=== PATIENT | female | born 1955 | race Caucasian/White ===

== ENCOUNTER 2021-01-16 01:17 | Inpatient (IN) ==
[2021-01-16] MEDS ORDERED: IOPAMIDOL 100 ML BOTTLE IV ONE ×2 (01:18→09:14)
[2021-01-16] MEDS ORDERED: 0.9 % SODIUM CHLORIDE 1,000 ML IV ONE (02:00)
[2021-01-16] MEDS ORDERED: ONDANSETRON 4 MG/2 ML VIAL IV ONE (02:24)
[2021-01-16] MEDS ORDERED: LACTATED RINGERS 1,000 ML IV ONE ×2 (02:24→05:18)
[2021-01-16] MEDS ORDERED: morphine 4 MG/ML VIAL IV ONE ×3 (02:25→08:28)
[2021-01-16 02:54] LABS: POC Creatinine 0.9 mg/dL (0.6-1.2)
[2021-01-16 03:37] LABS: Basophils # (Auto) 0.02 K/mcL (0.00-0.20); Basophils % (Auto) 0.1 % (0.0-2.0); Eosinophils # (Auto) 0.01 K/mcL (0.00-0.70); Eosinophils % (Auto) 0.1 % (0.0-7.0); Hematocrit 38.9 % (36.0-48.0); Hemoglobin 12.2 g/dL (12.0-15.0); Lymphocytes % (Auto) 8.1 % (15.0-49.0); Mean Cell Volume 98.2 fL (80.0-100.0); Mean Corpuscular HGB Conc 31.4 g/dL (31.0-36.0); Mean Platelet Volume 9.2 fL (7.4-10.4); Monocytes # (Auto) 0.65 K/mcL (0.10-0.90); Monocytes % (Auto) 4.4 % (1.0-12.0); Neutrophils % (Auto) 87.3 % (38.0-78.0); Platelet Count 286 K/mcL (140-440); RBC 3.96 M/mcL (4.00-5.20); Red Cell Distribution Width 13.9 % (11.5-14.5); WBC 14.8 K/mcL (4.5-11.0)
[2021-01-16 03:59] LABS: ALT/SGPT 11 U/L (<40); AST/SGOT 20 U/L (<32); Albumin 3.8 gm/dL (3.2-5.2); Albumin/Globulin Ratio 1.4 (1.0-2.3); Alkaline Phosphatase 303 U/L (39-117); Bilirubin,Total 0.7 mg/dL (0.1-1.0); Blood Urea Nitrogen 11 mg/dL (8-23); Calcium 8.4 mg/dL (8.6-10.4); Carbon Dioxide 19 mmol/L (22-30); Chloride 101 mmol/L (96-108); Globulin 2.7 gm/dL (2.2-3.7); Glomerular Filtration Rate 53; Glucose 114 mg/dL (70-105)
[2021-01-16 04:03] LABS: Appearance,Urine HAZY (Clear); Bacteria,Urine FEW /hpf (0); Bilirubin,Urine Negative (Negative); Color,Urine AMBER; Culture Indicated,Urine yes; Glucose,Urine (UA) Negative (Negative); Ketones,Urine Negative (Negative); Leukocyte Esterase,Urine Negative /ug (Negative); Mucus,Urine FEW /hpf; Nitrate,Urine Negative (Negative); Protein,Urine 30 mg/dL (Negative); Specific Gravity,Urine 1.038 (1.000-1.035); Urine Hyaline Cast 24 /lph (0-2); Urine RBC 16 /hpf (0-3); Urine Squamous Epithelial Cell 2 /hpf (0-4); Urine Transitional Epi Cells < 1 /hpf (0-2); Urine WBC 21 /hpf (0-4)
[2021-01-16] MEDS ORDERED: cefTRIAXone 1 GM VIAL IV ONE (04:03)
--- NOTE | 2021-01-16 05:44 | Cat Scan Report ---
INDICATION: low abdominal pain COMPARISON: Previous noncontrast enhanced CT scan dated 06/18/2013 TECHNIQUE: Axial images were obtained through the abdomen and pelvis. Sagittally and coronally reformatted images. 80 mL Isovue 370 injected intravenously. Oral contrast material was not administered FINDINGS: Lung bases:7 mm subpleural nodule in the right middle lobe, image #9. 6-[address] follow-up recommended. Parenchymal infiltrates in the right lower lobe. This may be benign volume loss. Pneumonia is possible. Left base is negative. There is a small hiatal hernia. Liver:Negative. No focal intrahepatic mass. No focal abnormality. Liver contour is smooth. No evidence for cirrhosis Gallbladder, bilary:No calcified gallstones. No gallbladder wall thickening. No dilated intra or extrahepatic bile ducts. Spleen:No splenomegaly. Normal enhancement of splenic and portal veins. Pancreas:No pancreatic mass. No peripancreatic abnormality Adrenal glands:Negative Kidneys, ureters, bladder:No solid renal mass. No hydronephrosis. No obstructing calculi. There is no hydroureter. No ureteral stone No bladder calculi or detectable mass Gastrointestinal:Colon is abnormal. There is prominent fecal material throughout the length of the colon which may indicate constipation. There is transmural wall thickening in the descending colon and sigmoid colon with mild pericolonic inflammatory change. There is prominent vasa recta. There is mild wall thickening in the transverse colon as well. Appearance is consistent with colitis. No detectable focal mass. There is no pneumatosis. No evidence for ischemia. Small bowel is negative. Stomach and duodenum are negative Appendix: The appendix is not visualized. The lesion has a history of previous appendectomy. Vascular:Mild calcification of the abdominal aorta. No abdominal aortic aneurysm. Celiac trunk and superior mesenteric artery are negative. There is a slightly abnormal course of the celiac trunk which may indicate median arcuate ligament syndrome. Lymphatic:No retroperitoneal or mesenteric adenopathy Mesentery, peritoneum: Mild free fluid within the pelvis. There is pericolonic inflammatory change consistent with colitis Reproductive:Previous hysterectomy. No adnexal mass Musculoskeletal:No lumbar compression fractures. Sacrum and pelvis are negative. No hip fracture. No abdominal wall or inguinal hernia IMPRESSION: 1. Findings consistent with constipation and colitis involving the transverse, descending, sigmoid colon 2. 7 mm subpleural nodule in the right lower lobe. Mild right lower lobe infiltrate may be atelectasis or pneumonia The exam was performed using radiation dose optimization techniques including, but not limited to, automated exposure control, adjustment of the mA and/or kV according to patient size and use of iterative reconstruction technique. Interpreted and Authenticated by: David Valeds 01/16/21
--- NOTE | 2021-01-16 06:33 | Emergency Department Note ---
HPI General Chief complaint: Abdominal Pain Stated complaint: abd pain Time Seen by Provider: 01/16/21 02:05 Source: patient Mode of arrival: EMS Limitations: no limitations History of Present Illness HPI Narrative: Narrative: Patient with a history of recurrent UTI, fibromyalgia, endometriosis, Sjogren's disease, presenting to the ED with low abdominal worsening cramping pain. Associated with nausea vomiting. As well as some intermittent diarrhea. No fever no chills no cardiorespiratory complaints. No urinary symptoms. No other complaints. Unsure if this is related to her history of endometriosis. Has had a history of a hysterectomy in the distant past. Denies rectal bleeding. No vaginal symptoms. Related Data Home Medications Medication Instructions Recorded Confirmed Rubber Cane Stopper MISCELLANE 05/17/16 02/01/20 Thigh High Compression Stockings MISCELLANE 05/17/16 02/01/20 albuterol sulfate 90 mcg/actuation See Rx Instructions INHALATION Q4H 05/17/16 02/01/20 aerosol inhaler PRN g cane 05/17/16 02/01/20 carisoprodol 350 mg tablet 350 mg PO Q6H PRN tab 05/17/16 02/01/20 cushion 05/17/16 02/01/20 geovany root powder MISCELLANE QWEEK 05/17/16 07/13/19 leucovorin calcium 5 mg tablet 5 mg PO .COMPLEX tab 05/17/16 02/01/20 omeprazole 20 mg capsule,delayed 20 mg PO QDAY cap 05/17/16 02/01/20 release pilocarpine HCl 5 mg tablet 5 mg PO TID 05/17/16 02/01/20 temazepam 15 mg capsule 30 mg PO QDAY cap 05/17/16 02/01/20 vitamin B complex 1 tab-cap PO QDAY 05/17/16 02/01/20 duloxetine 120 mg PO QDAY cap 05/29/16 02/01/20 tofacitinib 11 mg tablet,extended 11 mg PO QAM tab 06/19/19 02/01/20 release 24 hr folic acid 1 mg tablet 5 mg PO QDAY tab 07/02/19 02/01/20 methotrexate sodium (PF) 25 mg/mL 0.8 mg IM QWEEK ml 07/02/19 02/01/20 injection solution polyethylene glycol 3350 17 17 g PO ONCE PRN 07/02/19 02/01/20 gram/dose oral powder amitriptyline 50 mg tablet 50 mg PO QHS 07/13/19 02/01/20 spironolactone 50 mg tablet 25 mg PO QAM tab 07/13/19 02/01/20 cholecalciferol (vitamin D3) 50 100 mcg PO QDAY tab 02/01/20 02/01/20 mcg (2,000 unit) tablet Previous Rx's Medication Instructions Recorded E2-E3 20/80 1mg per gram See Rx Instructions .ROUTE 02/25/20 .COMPLEX #60 g alfuzosin 10 mg tablet,extended 10 mg PO QDAY #30 tab 05/25/20 release 24 hr mirabegron 50 mg tablet,extended 50 mg PO Q24H #30 tab 08/01/20 release 24 hr Allergies Allergy/AdvReac Type Severity Reaction Status Date / Time sulfamethoxazole Allergy Severe Unknown Verified 01/16/21 01:27 [From Septra] trimethoprim [From Septra] Allergy Severe Unknown Verified 01/16/21 01:27 ciprofloxacin [From Cipro] Allergy Unknown Unknown Verified 01/16/21 01:27 etanercept [From ENBREL] Allergy Unknown SWELLING Verified 01/16/21 01:27 gabapentin [GABAPENTIN] Allergy Unknown UNKNOWN Verified 01/16/21 01:27 infliximab [From Remicade] Allergy Unknown Unknown Verified 01/16/21 01:27 ketorolac [From Toradol] Allergy Unknown Unknown Verified 01/16/21 01:27 pregabalin [From LYRICA] Allergy Unknown SWELLING Verified 01/16/21 01:27 Sulfa (Sulfonamide Allergy Unknown Unknown Verified 01/16/21 01:27 Antibiotics) tramadol Allergy Unknown Unknown Verified 01/16/21 01:27 codeine AdvReac Unknown NAUSEA Verified 01/16/21 01:27 From TORADOL AdvReac Unknown NAUSEA Uncoded 08/01/20 15:46 Review of Systems ROS ROS Narrative: Narrative: At least 10 systems reviewed and otherwise acutely negative except as in the HPI PFSH Narrative Patient History Narrative: Narrative: Medical/Surgical/Family History All Active Problems (Updated 01/16/21 @ 07:16 by Berry Kauffman DO) Colitis (Acute) Abdominal pain (Acute) OAB (overactive bladder) (Acute) Bladder pain (Chronic) Hypertension (Chronic) Closed left ankle fracture (Acute) Ankle dislocation (Acute) Menopausal state (Chronic) Steroid long-term use (Chronic) Recurrent UTI (Chronic) Lower urinary tract symptoms (Chronic) Incomplete bladder emptying (Chronic) Albuminuria (Chronic) Strain of lumbar region (Acute) Osteoarthritis (Chronic) Sicca syndrome (Chronic) Polyarthralgia (Chronic) Rheumatoid arthritis (Chronic) Arthritis (Chronic) Stiffness in joint (Chronic) Muscle weakness (Chronic) Muscle cramps (Chronic) History of bone scan (Chronic 08/15/10) History of mammogram (Chronic 09/24/10) Anxiety (Chronic) Joint swelling (Chronic) Back pain (Chronic) Fracture of left distal radius (Chronic) Urinary tract infection (Chronic) Sicca syndrome, Sjogren's (Chronic) Rheumatoid arthritis, erosive, seronegative (Chronic) Aftercare (Chronic) Peripheral neuropathy (Chronic) Fibromyalgia (Chronic) Fatigue (Chronic) Dysuria (Chronic) Calcium metabolism disorder (Chronic) Preventative health care (Chronic) Acute lumbar back pain (Chronic) Sciatica (Chronic) Hyperlipidemia (Chronic) Depression (Chronic) Chronic abdominal pain (Chronic) Urinary incontinence (Chronic) Urinary frequency (Chronic) Osteoporosis (Chronic) Edema (Chronic) Schatzki's ring (Chronic) Vitamin D deficiency (Chronic) Tubulovillous adenoma of colon (Chronic) Vaginal discharge (Chronic) Incontinence (Chronic) Hematuria (Chronic) Urinary urgency (Chronic) 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) Drug therapy (Chronic) Pain (Chronic) Fracture of wrist (Chronic) Medical History (Updated 01/16/21 @ 07:16 by Berry Kauffman DO) Absence of cervix Surgical Absence of uterus Surgical Acute lumbar back pain Aftercare Long-term use, medications, NEC Albuminuria Anxiety Arthritis Back pain Calcium metabolism disorder Chronic abdominal pain Depression Drug therapy Dysuria Edema Fatigue Fibromyalgia Fracture of left distal radius Fracture of wrist Left-Colles fracture Hematuria History of bone scan (08/15/10) History of mammogram (09/24/10) Hyperlipidemia Incomplete bladder emptying Incontinence Joint swelling Lower urinary tract symptoms Menopausal state Muscle cramps Muscle weakness Osteoarthritis Osteoporosis Pain Peripheral neuropathy Polyarthralgia Preventative health care Recurrent UTI Rheumatoid arthritis Rheumatoid arthritis, erosive, seronegative Schatzki's ring Sciatica Sicca syndrome Sicca syndrome, Sjogren's Steroid long-term use Stiffness in joint Tubulovillous adenoma of colon Urinary frequency Urinary incontinence Urinary tract infection Urinary urgency Vaginal discharge Vitamin D deficiency Surgical History History of bunionectomy of left great toe 1994 History of colonoscopy 10/17 History of esophagogastroduodenoscopy (EGD) 10/2010 History of laparoscopy Due to endometriosis - 1991 History of open reduction and internal fixation (ORIF) procedure Left wrist 2014 History of tonsillectomy and adenoidectomy 1965 Status post JUN-BSO Due to endometriosis-1991 Family History Mother FHx: allergies Skin cancer Osteoporosis Hip fracture Father , 84 Parkinson's disease Brother Skin cancer Son Migraines Marijuana use Grandfather Leukemia Colon cancer Heart disease High cholesterol Osteoporosis Grandmother Arthritis Family/Other Rheumatoid arthritis Social History Smoking Status: Current every day smoker Alcohol Intake Frequency: does not drink Substance Use: does not use Exam Narrative Narrative: Narrative: Constitutional: normally developed, appears uncomfortable in some pain Head: Normocephalic, atraumatic, Eyes: No Icterus, ENT: Dry mucus membranes, Neck: Supple, Cardiac: Normal heart sounds, palpable radial pulses, no peripheral edema Pulmonary: Normal respiratory effort. Breath sounds clear, no wheeze, rhonchi, rales, Gastrointestinal: Abdomen soft, non-distended, tender across her lower abdomen left side greater than right no rebound or guarding. No CVA tenderness, Musculoskeletal: No gross deformities, well perfused Skin: warm, dry Neuro: Alert and oriented. General Limitations: no limitations Course Vital Signs Vital signs: Vital Signs Temperature 36.6 C 01/16/21 01:18 Pulse Rate 100 H 01/16/21 01:18 Respiratory Rate 18 01/16/21 01:18 Blood Pressure 92/61 01/16/21 01:18 Pulse Oximetry (%) 95 01/16/21 01:18 Temperature 36.6 C 01/16/21 01:18 Pulse Rate 98 H 01/16/21 05:57 Respiratory Rate 18 01/16/21 01:18 Blood Pressure 106/59 01/16/21 05:36 Pulse Oximetry (%) 88 L 01/16/21 05:36 [facility] MDM Narrative Medical decision making narrative: Narrative: Patient with low abdominal pain work-up is initiated. Is given some IV fluids appears dry, is given antiemetic and analgesia CBC shows leukocytosis of 14.8, electrolytes show normal renal function low normal bicarb 19 LFTs within normal alk phos 303 Urinalysis negative for nitrates, negative for leukocyte esterase, has some RBCs, WBCs few bacteria some squamous cells. Urine culture pending given the fact she does not have any urinary and negative nitrites negative leukocyte esterase, unlikely UTI however is being covered with antibiotics anyways for colitis which would also cover possible UTI pending culture result CT abdomen does show constipation with segmental colitis primarily the descending colon and sigmoid. Reevaluation no new complaints vitals remained stable however she is still quite symptomatic having to very frequently use the bedside commode still reporting some recurrence of pain despite several rounds analgesia and antiemetics. Did speak with hospitalist who accepts admission for further management and symptomatic control, hydration. Did request we start some antibiotics was given initial dose of Zosyn here in the ED. Lab Data Result diagrams: 01/16/21 02:44 01/16/21 02:44 Labs: Lab Results 01/16/21 01/16/21 01/16/21 Range/Units 02:44 02:44 02:59 WBC 14.8 H (4.5-11.0) K/mcL RBC 3.96 L (4.00-5.20) M/mcL Hgb 12.2 (12.0-15.0) g/dL Hct 38.9 (36.0-48.0) % MCV 98.2 (80.0-100.0) fL MCH 30.8 (26.0-34.0) pg MCHC 31.4 (31.0-36.0) g/dL RDW 13.9 (11.5-14.5) % Plt Count 286 (140-440) K/mcL MPV 9.2 (7.4-10.4) fL Neut % (Auto) 87.3 H (38.0-78.0) % Lymph % (Auto) 8.1 L (15.0-49.0) % [place] % (Auto) 4.4 (1.0-12.0) % Eos % (Auto) 0.1 (0.0-7.0) % Baso % (Auto) 0.1 (0.0-2.0) % Lymph # (Auto) 1.20 L (1.50-4.80) K/mcL [place] # (Auto) 0.65 (0.10-0.90) K/mcL Eos # (Auto) 0.01 (0.00-0.70) K/mcL Baso # (Auto) 0.02 (0.00-0.20) K/mcL Absolute Neutrophils 12.96 H (1.80-8.00) K/mcL Sodium 134 (133-145) mmol/L Potassium 3.6 (3.3-5.1) mmol/L Chloride 101 (96-108) mmol/L Carbon Dioxide 19 L (22-30) mmol/L Anion Gap 14.0 (8.0-16.0) BUN 11 (8-23) mg/dL Creatinine 1.1 (0.6-1.1) mg/dL POC Creatinine 0.9 (0.6-1.2) mg/dL GFR Calculation 53 Glucose 114 H (70-105) mg/dL Calcium 8.4 L (8.6-10.4) mg/dL Total Bilirubin 0.7 (0.1-1.0) mg/dL AST 20 (<32) U/L ALT 11 (<40) U/L Alkaline Phosphatase 303 H (39-117) U/L Total Protein 6.5 (5.9-8.4) gm/dL Albumin 3.8 (3.2-5.2) gm/dL Globulin 2.7 (2.2-3.7) gm/dL Albumin/Globulin Ratio 1.4 (1.0-2.3) Lipase 12 (7-60) U/L Urine Color Yolanda Urine Appearance Hazy A (Clear) Urine pH 5.0 (5.0-9.0) Ur Specific [place] 1.038 (1.000-1.035) Urine Protein 30 A (Negative) mg/dL Urine Glucose (UA) Negative (Negative) mg/dL Urine Ketones Negative (Negative) mg/dL Urine Occult Blood 0.20 (Negative) mg/dL Urine Nitrate Negative (Negative) Urine Bilirubin Negative (Negative) mg/dL Urine Urobilinogen 4.0 A mg/dL Ur Leukocyte Esterase Negative (Negative) /ug Urine RBC 16 H (0-3) /hpf Urine WBC 21 H (0-4) /hpf Ur Squamous Epith Cells 2 (0-4) /hpf Ur Transition Epith Cell < 1 (0-2) /hpf Urine Bacteria Few A (0) /hpf Hyaline Casts 24 H (0-2) /lph Urine Mucus Few A (None) /hpf Ur Culture Indicated? yes Discharge Plan Patient/Caregiver Discharge Instructions Pt seen by INCOME [employer] AUDITOR/PA only: No Clinical Impression: Colitis Abdominal pain Qualifiers: Abdominal location: left lower quadrant Qualified Code(s): R10.32 - Left lower quadrant pain Patient Disposition: Xfer As Inpt ([facility]) Condition: Fair Follow up with: Lenard Galvan DO [Primary Care Provider] - Prescriptions: No Action alfuzosin 10 mg tablet extended release 24 hr 10 mg PO QDAY Qty: 30 RF: 3 temazepam 15 mg capsule 30 mg PO QDAY RF: 0 leucovorin calcium 5 mg tablet 5 mg PO .COMPLEX RF: 0 carisoprodol [Soma] 350 mg tablet 350 mg PO Q6H PRNRF: 0 albuterol sulfate [Ventolin HFA] 90 mcg/actuation HFA aerosol inhaler See Rx Instructions INHALATION Q4H PRNRF: 0 omeprazole 20 mg capsule,delayed release(DR/EC) 20 mg PO QDAY RF: 0 pilocarpine HCl 5 mg tablet 5 mg PO TID RF: 0 Thigh High Compression Stockings MISCELLANE RF: 0 geovany root powder MISCELLANE QWEEK RF: 0 Rubber Cane Stopper MISCELLANE RF: 0 (DME) cushion misc See Dose Instructions .ROUTE .MEDSUPPLY RF: 0 (DME) cane device See Dose Instructions .ROUTE .MEDSUPPLY RF: 0 vitamin B complex [B Complex 1] tablet 1 tab-cap PO QDAY RF: 0 duloxetine 60 mg capsule,delayed release(DR/EC) 120 mg PO QDAY RF: 0 Xeljanz XR 11 mg tablet extended release 24 hr 11 mg PO QAM RF: 0 folic acid 1 mg tablet 5 mg PO QDAY RF: 0 methotrexate sodium (PF) 25 mg/mL solution 0.8 mg IM QWEEK RF: 0 polyethylene glycol 3350 [Miralax] 17 gram/dose powder 17 g PO ONCE PRNRF: 0 spironolactone 50 mg tablet 25 mg PO QAM RF: 0 amitriptyline 50 mg tablet 50 mg tablet 50 mg PO QHS RF: 0 cholecalciferol (vitamin D3) 50 mcg (2,000 unit) tablet 100 mcg PO QDAY RF: 0 E2-E3 20/80 1mg per gram See Rx Instructions .ROUTE .COMPLEX Qty: 60 RF: 6 mirabegron 50 mg tablet extended release 24 hr 50 mg PO Q24H Qty: 30 RF: 11
[2021-01-16] MEDS ORDERED: PIPERACILLIN SODIUM/TAZOBACTAM 4.5 GM in DEXTROSE 5% IN WATER 50 ML IV ONE ×2 (07:08→09:14)
--- NOTE | 2021-01-16 08:06 | Internal Med History&Physical ---
HPI History of Present Illness Patient information: Note initiated : 01/16/21 at 7:58 am Service Date, if different from initiated Date: [] Patient: Radha Dawn a 66 y/o F admitted on for Abd Pain . Chief Complaint: [colitis] History of present illness: Ms. Dawn is a 66 year old F history of rheumatoid arthritis, Sjogren's disease, fibromyalgia, overactive bladder, presenting with 2-day history of acute onset abdominal pain with nausea vomiting. Patient was in her usual state of health until yesterday when she developed acute onset bilateral lower quadrant abdominal pain with associated nausea and vomiting. The pain is being described as 10 out of 10, sharp cramping and burning and constant without radiations. No associated alleviating or exacerbating factors. Patient is also experiencing nausea and vomiting. She also have chronic fluctuating constipation and diarrhea. She is also committing of subjective fever and shaking chills. She can barely tolerate any oral intakes and all we have a few bites of [place] tips and started since yesterday. She denied sick contact recent travel or introduction of new foods. Vital signs at ED presentation largely unremarkable and no fevers. Labs significant for leukocytosis with WBC 14.8. CT of the abdomen pelvis showing signs of diffuse colitis involving both ascending transverse and descending colons. Constitutional Constitutional: Absent chills, excessive sweating, fatigue, fever(s) and weakness EENT Eyes: Absent blurry vision, change in vision, loss of vision and other visual disturbances Ears: Absent decreased hearing and tinnitus Nose, mouth and throat: Absent abnormal hearing, dry mouth, headache(s), nasal congestion and sore throat Cardiovascular Cardiovascular: Absent chest pain, chest pain at rest, edema, irregular heart rhythm and palpatations Respiratory Respiratory: Absent cough, dyspnea and wheezing Gastrointestinal Gastrointestinal: Present abdominal pain, constipation, diarrhea, nausea and vomiting Musculoskeletal Musculoskeletal: Absent back pain, deformity, limited range of motion, muscle cramps, muscle weakness and numbness Integumentary Integumentary: Absent lesions, rash and wounds Neurological Neurological: Absent focal weakness, headache(s) and numbness Psychiatric Psychiatric: Absent anxiety, depression and hallucinations PFSH PFSH All Active Problems (Updated 01/16/21 @ 07:16 by Berry Kauffman DO) Colitis (Acute) Abdominal pain (Acute) OAB (overactive bladder) (Acute) Bladder pain (Chronic) Hypertension (Chronic) Closed left ankle fracture (Acute) Ankle dislocation (Acute) Menopausal state (Chronic) Steroid long-term use (Chronic) Recurrent UTI (Chronic) Lower urinary tract symptoms (Chronic) Incomplete bladder emptying (Chronic) Albuminuria (Chronic) Strain of lumbar region (Acute) Osteoarthritis (Chronic) Sicca syndrome (Chronic) Polyarthralgia (Chronic) Rheumatoid arthritis (Chronic) Arthritis (Chronic) Stiffness in joint (Chronic) Muscle weakness (Chronic) Muscle cramps (Chronic) History of bone scan (Chronic 08/15/10) History of mammogram (Chronic 09/24/10) Anxiety (Chronic) Joint swelling (Chronic) Back pain (Chronic) Fracture of left distal radius (Chronic) Urinary tract infection (Chronic) Sicca syndrome, Sjogren's (Chronic) Rheumatoid arthritis, erosive, seronegative (Chronic) Aftercare (Chronic) Peripheral neuropathy (Chronic) Fibromyalgia (Chronic) Fatigue (Chronic) Dysuria (Chronic) Calcium metabolism disorder (Chronic) Preventative health care (Chronic) Acute lumbar back pain (Chronic) Sciatica (Chronic) Hyperlipidemia (Chronic) Depression (Chronic) Chronic abdominal pain (Chronic) Urinary incontinence (Chronic) Urinary frequency (Chronic) Osteoporosis (Chronic) Edema (Chronic) Schatzki's ring (Chronic) Vitamin D deficiency (Chronic) Tubulovillous adenoma of colon (Chronic) Vaginal discharge (Chronic) Incontinence (Chronic) Hematuria (Chronic) Urinary urgency (Chronic) 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) Drug therapy (Chronic) Pain (Chronic) Fracture of wrist (Chronic) Medical History (Updated 01/16/21 @ 07:16 by Berry Kauffman DO) Absence of cervix Surgical Absence of uterus Surgical Acute lumbar back pain Aftercare Long-term use, medications, NEC Albuminuria Anxiety Arthritis Back pain Calcium metabolism disorder Chronic abdominal pain Depression Drug therapy Dysuria Edema Fatigue Fibromyalgia Fracture of left distal radius Fracture of wrist Left-Colles fracture Hematuria History of bone scan (08/15/10) History of mammogram (09/24/10) Hyperlipidemia Incomplete bladder emptying Incontinence Joint swelling Lower urinary tract symptoms Menopausal state Muscle cramps Muscle weakness Osteoarthritis Osteoporosis Pain Peripheral neuropathy Polyarthralgia Preventative health care Recurrent UTI Rheumatoid arthritis Rheumatoid arthritis, erosive, seronegative Schatzki's ring Sciatica Sicca syndrome Sicca syndrome, Sjogren's Steroid long-term use Stiffness in joint Tubulovillous adenoma of colon Urinary frequency Urinary incontinence Urinary tract infection Urinary urgency Vaginal discharge Vitamin D deficiency Surgical History History of bunionectomy of left great toe 1994 History of colonoscopy 10/17 History of esophagogastroduodenoscopy (EGD) 10/2010 History of laparoscopy Due to endometriosis - 1991 History of open reduction and internal fixation (ORIF) procedure Left wrist 2014 History of tonsillectomy and adenoidectomy 1965 Status post JUN-BSO Due to endometriosis-1991 Family History Mother FHx: allergies Skin cancer Osteoporosis Hip fracture Father , 84 Parkinson's disease Brother Skin cancer Son Migraines Marijuana use Grandfather Leukemia Colon cancer Heart disease High cholesterol Osteoporosis Grandmother Arthritis Family/Other Rheumatoid arthritis Social History marital status: occupational status: disabled other: One son smoking status start date: 06/09/69 alcohol intake frequency: does not drink substance use type: does not use MEDS/ALLERGIES Home Medications and Allergies Home Medications Medication Instructions Recorded Confirmed Type Rubber Cane Stopper MISCELLANE 05/17/16 02/01/20 History Thigh High Compression Stockings MISCELLANE 05/17/16 02/01/20 History albuterol sulfate 90 mcg/actuation See Rx Instructions INHALATION Q4H 05/17/16 02/01/20 History aerosol inhaler PRN g cane 05/17/16 02/01/20 History carisoprodol 350 mg tablet 350 mg PO Q6H PRN tab 05/17/16 02/01/20 History cushion 05/17/16 02/01/20 History geovany root powder MISCELLANE QWEEK 05/17/16 07/13/19 History leucovorin calcium 5 mg tablet 5 mg PO .COMPLEX tab 05/17/16 02/01/20 History omeprazole 20 mg capsule,delayed 20 mg PO QDAY cap 05/17/16 02/01/20 History release pilocarpine HCl 5 mg tablet 5 mg PO TID 05/17/16 02/01/20 History temazepam 15 mg capsule 30 mg PO QDAY cap 05/17/16 02/01/20 History vitamin B complex 1 tab-cap PO QDAY 05/17/16 02/01/20 History duloxetine 120 mg PO QDAY cap 05/29/16 02/01/20 History tofacitinib 11 mg tablet,extended 11 mg PO QAM tab 06/19/19 02/01/20 History release 24 hr folic acid 1 mg tablet 5 mg PO QDAY tab 07/02/19 02/01/20 History methotrexate sodium (PF) 25 mg/mL 0.8 mg IM QWEEK ml 07/02/19 02/01/20 History injection solution polyethylene glycol 3350 17 17 g PO ONCE PRN 07/02/19 02/01/20 History gram/dose oral powder amitriptyline 50 mg tablet 50 mg PO QHS 07/13/19 02/01/20 History spironolactone 50 mg tablet 25 mg PO QAM tab 07/13/19 02/01/20 History cholecalciferol (vitamin D3) 50 100 mcg PO QDAY tab 02/01/20 02/01/20 History mcg (2,000 unit) tablet E2-E3 20/80 1mg per gram See Rx Instructions .ROUTE 02/25/20 02/25/20 Rx .COMPLEX #60 g alfuzosin 10 mg tablet,extended 10 mg PO QDAY #30 tab 05/25/20 Rx release 24 hr mirabegron 50 mg tablet,extended 50 mg PO Q24H #30 tab 08/01/20 08/01/20 Rx release 24 hr Allergies Allergy/AdvReac Type Severity Reaction Status Date / Time sulfamethoxazole Allergy Severe Unknown Verified 01/16/21 01:27 [From Septra] trimethoprim [From Septra] Allergy Severe Unknown Verified 01/16/21 01:27 ciprofloxacin [From Cipro] Allergy Unknown Unknown Verified 01/16/21 01:27 etanercept [From ENBREL] Allergy Unknown SWELLING Verified 01/16/21 01:27 gabapentin [GABAPENTIN] Allergy Unknown UNKNOWN Verified 01/16/21 01:27 infliximab [From Remicade] Allergy Unknown Unknown Verified 01/16/21 01:27 ketorolac [From Toradol] Allergy Unknown Unknown Verified 01/16/21 01:27 pregabalin [From LYRICA] Allergy Unknown SWELLING Verified 01/16/21 01:27 Sulfa (Sulfonamide Allergy Unknown Unknown Verified 01/16/21 01:27 Antibiotics) tramadol Allergy Unknown Unknown Verified 01/16/21 01:27 codeine AdvReac Unknown NAUSEA Verified 01/16/21 01:27 From TORADOL AdvReac Unknown NAUSEA Uncoded 08/01/20 15:46 EXAM Constitutional Vitals: Temp Pulse Resp BP Pulse Ox 36.6 C 98 H 18 138/124 88 L 01/16/21 01:18 01/16/21 05:57 01/16/21 01:18 01/16/21 06:31 01/16/21 05:36 General appearance: cooperative and no acute distress Head Head exam: Present atraumatic and normocephalic Eye Eye exam: Present EOMI and PERRL ENT ENT exam: Present mucous membranes moist, normal exam and normal external ear exam Neck Neck exam: Present normal inspection; Absent lymphadenopathy, tenderness and thyromegaly Respiratory Respiratory exam: Absent accessory muscle use, respiratory distress and wheezes Cardiovascular Cardiovascular exam: Present normal rate and rhythm; Absent JVD GI/Abdominal GI/Abdominal exam: Present normal bowel sounds, soft, guarding and tenderness; Absent organomegaly and rebound Extremities Exam Extremities exam: Present full ROM, normal capillary refill and normal inspection; Absent tenderness Neurological Exam Neurological exam: Present alert, CN II-XII intact and oriented X3; Absent motor sensory deficit Psychiatric Psychiatric exam: Present normal affect and normal mood; Absent anxious and depressed Skin Skin exam: Present dry and intact DATA Data Completed and Pending Labs: Labs from last 24 hours 01/16/21 01/16/21 01/16/21 02:59 02:44 02:44 WBC 14.8 H RBC 3.96 L Hgb 12.2 Hct 38.9 MCV 98.2 MCH 30.8 MCHC 31.4 RDW 13.9 Plt Count 286 MPV 9.2 Neut % (Auto) 87.3 H Lymph % (Auto) 8.1 L [place] % (Auto) 4.4 Eos % (Auto) 0.1 Baso % (Auto) 0.1 Lymph # (Auto) 1.20 L [place] # (Auto) 0.65 Eos # (Auto) 0.01 Baso # (Auto) 0.02 Absolute Neutrophils 12.96 H Sodium 134 Potassium 3.6 Chloride 101 Carbon Dioxide 19 L Anion Gap 14.0 BUN 11 Creatinine 1.1 POC Creatinine 0.9 GFR Calculation 53 Glucose 114 H Calcium 8.4 L Total Bilirubin 0.7 AST 20 ALT 11 Alkaline Phosphatase 303 H Total Protein 6.5 Albumin 3.8 Globulin 2.7 Albumin/Globulin Ratio 1.4 Lipase 12 Urine Color Yolanda Urine Appearance Hazy A Urine pH 5.0 Ur Specific [place] 1.038 Urine Protein 30 A Urine Glucose (UA) Negative Urine Ketones Negative Urine Occult Blood 0.20 Urine Nitrate Negative Urine Bilirubin Negative Urine Urobilinogen 4.0 A Ur Leukocyte Esterase Negative Urine RBC 16 H Urine WBC 21 H Ur Squamous Epith Cells 2 Ur Transition Epith Cell < 1 Urine Bacteria Few A Hyaline Casts 24 H Urine Mucus Few A Ur Culture Indicated? yes A/P Assessment and plan (1) Colitis: Status: Acute (2) Polyarthralgia: Status: Chronic (3) Sicca syndrome, Sjogren's: Status: Chronic (4) Rheumatoid arthritis, erosive, seronegative: Status: Chronic (5) Fibromyalgia: Status: Chronic (6) Urinary incontinence: Status: Chronic Narrative A/P Narrative: Assessment and Plans: 1. Diffuse colitis: Observation med surg Blood culture Serial lactic acid Procalcitonin C diff toxin PCR cbc w/ auto diff in the morning Clear liquid diet with advancement to regular diet as tolerated IV fluid: NS@100cc/hr Morphine 4mg IV q4hr PRN severe pain Tramadol 50mg PO q4hr PRN moderate pain Tylenol PRN fever or mild pain Zofran IV PRN nausea vomiting Zosyn for now, will transition to oral antibiotics such as Cipro/Flagyl when symptoms improve 2. Sjogren's syndrome: Continue home meds 3. Rheumatoid arthritis: Continue home meds 4. Fibromyalgia: Morphine 4mg IV q4hr PRN severe pain Tramadol 50mg PO q4hr PRN moderate pain Tylenol PRN fever or mild pain 5. Overactive bladder: Continue home meds GI ppx: continue oral PPI from home regimen DVT ppx: Lovenox Code status: Full Prognosis: stable Disposition: observation med surg Time Spent With Patient Time: Total time spent is greater than 50% in coordination of care (as documented) at patient's floor/unit and/or counseling patient: Total time spent with greater than 50% in coordination of care (as documented) at patient's floor/unit and/or counseling patient:: 25 - 35 minutes
[2021-01-16] MEDS ORDERED: ONDANSETRON 4 MG/2 ML VIAL IV PRN ×2 (09:14)
[2021-01-16] MEDS ORDERED: METHOTREXATE 50 MG/2 ML IM SCH (09:14)
[2021-01-16] MEDS ORDERED: PIPERACILLIN SODIUM/TAZOBACTAM 3.375 GM in DEXTROSE 5% IN WATER 50 ML IV SCH (09:14)
[2021-01-16] MEDS ORDERED: LEUCOVORIN CALCIUM 5 MG PO SCH (09:14)
[2021-01-16] MEDS: 0.9 % SODIUM CHLORIDE 1,000 ML IV SCH ×3 (10:03→20:58)
[2021-01-16] MEDS: cefTRIAXone 2 GM in DEXTROSE 5% IN WATER 50 ML IV SCH (11:55)
[2021-01-16] MEDS: morphine 4 MG/ML VIAL IV PRN ×3 (12:03→20:51)
[2021-01-16] MEDS: TEMAZEPAM 15 MG CAPSULE PO SCH (12:30)
[2021-01-16] MEDS: DOCUSATE SODIUM 100 MG CAPSULE PO SCH ×2 (13:00→20:50)
[2021-01-16] MEDS: CARISOPRODOL 350 MG TABLET PO PRN ×2 (13:09→18:54)
[2021-01-16] MEDS: SPIRONOLACTONE 25 MG TABLET PO SCH (13:10)
[2021-01-16] MEDS: DULoxetine 30 MG CAPSULE PO SCH (13:10)
[2021-01-16] MEDS: FOLIC ACID 1 MG TABLET PO SCH (13:11)
[2021-01-16] MEDS: VITAMIN D3 1,000 UNIT TABLET PO SCH (13:11)
[2021-01-16] MEDS: ENOXAPARIN 40 MG/0.4 ML SYRINGE SQ SCH (13:11)
[2021-01-16] MEDS: OMEPRAZOLE 20 MG CAPSULE PO SCH (13:22)
[2021-01-16] MEDS: 0.9 % SODIUM CHLORIDE 10 ML SYRINGE IV SCH ×2 (14:08→22:35)
[2021-01-16] MEDS: Pilocarpine Hcl 5 mg tablet PO SCH ×2 (17:51→21:17)
[2021-01-16] MEDS: traMADol 50 MG TABLET PO PRN ×2 (18:54→23:52)
[2021-01-16] MEDS: SENNOSIDES 1 TABLET PO SCH (20:49)
[2021-01-16] MEDS: AMITRIPTYLINE 25 MG TABLET PO SCH (20:49)
[2021-01-16] MEDS: ZOLPIDEM 5 MG TABLET PO PRN (20:50)
[2021-01-16] MEDS: ACETAMINOPHEN 325 MG TABLET PO PRN (20:50)
[2021-01-17] MEDS: 0.9 % SODIUM CHLORIDE 10 ML SYRINGE IV SCH ×3 (04:21→22:29)
[2021-01-17] MEDS: ACETAMINOPHEN 325 MG TABLET PO PRN ×3 (04:42→20:57)
[2021-01-17] MEDS: traMADol 50 MG TABLET PO PRN ×3 (04:43→13:33)
[2021-01-17] MEDS: morphine 4 MG/ML VIAL IV PRN ×4 (04:44→18:16)
[2021-01-17 08:16] LABS: ALT/SGPT 11 U/L (<40); AST/SGOT 23 U/L (<32); Albumin/Globulin Ratio 1.2 (1.0-2.3); Alkaline Phosphatase 167 U/L (39-117); Bilirubin,Total 0.6 mg/dL (0.1-1.0); Blood Urea Nitrogen 17 mg/dL (8-23); Calcium 7.3 mg/dL (8.6-10.4); Carbon Dioxide 21 mmol/L (22-30); Chloride 100 mmol/L (96-108); Globulin 2.5 gm/dL (2.2-3.7); Glomerular Filtration Rate 91; Glucose 107 mg/dL (70-105)
[2021-01-17] MEDS: ENOXAPARIN 40 MG/0.4 ML SYRINGE SQ SCH (08:37)
[2021-01-17] MEDS: cefTRIAXone 2 GM in DEXTROSE 5% IN WATER 50 ML IV SCH (08:37)
[2021-01-17] MEDS: FOLIC ACID 1 MG TABLET PO SCH (08:38)
[2021-01-17] MEDS: DULoxetine 30 MG CAPSULE PO SCH (08:38)
[2021-01-17] MEDS: OMEPRAZOLE 20 MG CAPSULE PO SCH (08:39)
[2021-01-17] MEDS: VITAMIN B COMPLEX 1 CAPSULE PO SCH (08:39)
[2021-01-17] MEDS: VITAMIN D3 1,000 UNIT TABLET PO SCH (08:39)
[2021-01-17] MEDS: DOCUSATE SODIUM 100 MG CAPSULE PO SCH ×2 (08:39→20:23)
[2021-01-17] MEDS: SPIRONOLACTONE 25 MG TABLET PO SCH (08:39)
[2021-01-17] MEDS: Mirabegron 50 mg tablet extended release 24 hr PO SCH (08:40)
[2021-01-17] MEDS: Pilocarpine Hcl 5 mg tablet PO SCH ×3 (08:40→20:24)
[2021-01-17] MEDS: Alfuzosin 10 mg tablet extended release 24 hr PO SCH (08:40)
[2021-01-17] MEDS: TEMAZEPAM 15 MG CAPSULE PO SCH (08:41)
[2021-01-17 08:54] LABS: Basophils # (Auto) 0.02 K/mcL (0.00-0.20); Basophils % (Auto) 0.3 % (0.0-2.0); Eosinophils # (Auto) 0 K/mcL (0.00-0.70); Eosinophils % (Auto) 0 % (0.0-7.0); Hematocrit 32.4 % (36.0-48.0); Hemoglobin 10.7 g/dL (12.0-15.0); Lymphocytes % (Auto) 14.2 % (15.0-49.0); Mean Cell Volume 95.3 fL (80.0-100.0); Mean Platelet Volume 9.3 fL (7.4-10.4); Monocytes % (Auto) 4.7 % (1.0-12.0); Neutrophils % (Auto) 80.8 % (38.0-78.0); Platelet Count 232 K/mcL (140-440); Red Cell Distribution Width 13.7 % (11.5-14.5); WBC 6.3 K/mcL (4.5-11.0)
[2021-01-17] MEDS: 0.9 % SODIUM CHLORIDE 1,000 ML IV SCH ×3 (10:44→21:14)
--- NOTE | 2021-01-17 14:39 | Internal Med Progress Note ---
SUBJECTIVE Subjective Patient information: Note initiated : 01/17/21 at 2:37 pm Service Date, if different from initiated Date: [] Patient: Radha Dawn a 66 y/o F admitted on 01/16/21 for Abd Pain . Chief Complaint: [Colitis] History of present illness: Ms. Dawn is a 66 year old F history of rheumatoid arthritis, Sjogren's disease, fibromyalgia, overactive bladder, presenting with 2-day history of acute onset abdominal pain with nausea vomiting. Patient was in her usual state of health until yesterday when she developed acute onset bilateral lower quadrant abdominal pain with associated nausea and vomiting. The pain is being described as 10 out of 10, sharp cramping and burning and constant without radiations. No associated alleviating or exacerbating factors. Patient is also experiencing nausea and vomiting. She also have chronic fluctuating constipation and diarrhea. She is also committing of subjective fever and shaking chills. She can barely tolerate any oral intakes and all we have a few bites of [place]zer[place] tips and started since yesterday. She denied sick contact recent travel or introduction of new foods. Vital signs at ED presentation largely unremarkable and no fevers. Labs significant for leukocytosis with WBC 14.8. CT of the abdomen pelvis showing signs of diffuse colitis involving both ascending transverse and descending colons. 01/17: Fever with Tmax 38.2. WBC 14.8--> 6.3 this morning. Blood cultures no growth to date. c/o severe constant sharp LLQ and RLQ abdominal pain. c/o fever. c/o nausea and vomiting. c/o alternating constipation and diarrhea. Constitutional Vitals: Vital Signs Temp Pulse Resp BP Pulse Ox 36.3 C 102 H 16 116/86 91 01/17/21 12:00 01/17/21 12:00 01/17/21 12:00 01/17/21 12:00 01/17/21 12:00 Period Temp Pulse Resp BP Sys/Mcgraw Pulse Ox Last 24 Hr 36.3 C-38.2 C 90-112 14-18 97-138/56-86 90-96 Intake and Output 01/17/21 01/17/21 01/17/21 05:59 13:59 21:59 Intake Total 200 1000 Balance 200 1000 Weight 86.409 kg Patient Weight 01/18/21 05:59 Weight 86.409 kg Intake & Output: Intake & Output 01/17/21 01/17/21 01/17/21 05:59 13:59 21:59 Intake Total 200 1000 Balance 200 1000 Weight 86.409 kg Intake: IV 1000 Sodium Chloride 0.9% 1,000 ml @ 1000 100 mls/hr IV .Q10H [facility] Rx#: [id number] Oral 200 General appearance: cooperative and moderate distress Head Head exam: Present atraumatic and normocephalic Eye Eye exam: Present EOMI and PERRL ENT ENT exam: Present mucous membranes moist, normal exam and normal external ear exam Neck Neck exam: Present normal inspection; Absent lymphadenopathy, tenderness and t hyromegaly Respiratory Respiratory exam: Absent accessory muscle use, respiratory distress and wheezes Cardiovascular Cardiovascular exam: Present normal rate and rhythm; Absent JVD GI/Abdominal GI/Abdominal exam: Present normal bowel sounds, soft and tenderness; Absent organomegaly Extremities Exam Extremities exam: Present full ROM, normal capillary refill and normal inspection; Absent tenderness Neurological Exam Neurological exam: Present alert, CN II-XII intact and oriented X3; Absent motor sensory deficit Psychiatric Psychiatric exam: Present normal affect and normal mood; Absent anxious and depressed Skin Skin exam: Present dry and intact OBJ DATA Labs CBC & Chem 7: 01/17/21 05:18 01/17/21 05:59 Labs: Abnormal Lab Results 01/17/21 01/17/21 01/16/21 05:59 05:18 10:20 WBC RBC 3.40 L Hgb 10.7 L Hct 32.4 L Neut % (Auto) 80.8 H Lymph % (Auto) 14.2 L Lymph # (Auto) 0.90 L Absolute Neutrophils VBG Lactic Acid 3.7 H Sodium 128 L Carbon Dioxide 21 L Anion Gap 7.0 L Glucose 107 H Calcium 7.3 L Alkaline Phosphatase 167 H Total Protein 5.5 L Albumin 3.0 L Procalcitonin Urine Appearance Urine Protein Urine Urobilinogen Urine RBC Urine WBC Urine Bacteria Hyaline Casts Urine Mucus 01/16/21 01/16/21 01/16/21 10:10 02:59 02:44 WBC RBC Hgb Hct Neut % (Auto) Lymph % (Auto) Lymph # (Auto) Absolute Neutrophils VBG Lactic Acid Sodium Carbon Dioxide 19 L Anion Gap Glucose 114 H Calcium 8.4 L Alkaline Phosphatase 303 H Total Protein Albumin Procalcitonin 2.46 H Urine Appearance Hazy A Urine Protein 30 A Urine Urobilinogen 4.0 A Urine RBC 16 H Urine WBC 21 H Urine Bacteria Few A Hyaline Casts 24 H Urine Mucus Few A 01/16/21 02:44 WBC 14.8 H RBC 3.96 L Hgb Hct Neut % (Auto) 87.3 H Lymph % (Auto) 8.1 L Lymph # (Auto) 1.20 L Absolute Neutrophils 12.96 H VBG Lactic Acid Sodium Carbon Dioxide Anion Gap Glucose Calcium Alkaline Phosphatase Total Protein Albumin Procalcitonin Urine Appearance Urine Protein Urine Urobilinogen Urine RBC Urine WBC Urine Bacteria Hyaline Casts Urine Mucus Meds: Medications Acetaminophen (Acetaminophen 325 Mg Tablet) 650 mg PO Q6HP PRN; Protocol PRN Reason: Per Pain Protocol/Fever > 101 Last Admin: 01/17/21 04:42 Dose: 650 mg Documented by: Albuterol Sulfate (Albuterol Sulfate 200 Puff Inhaler) 1 - 2 puff INH Q4H PRN PRN Reason: Wheezing Amitriptyline HCl (Amitriptyline 25 Mg Tablet) 50 mg PO [facility] Last Admin: 01/16/21 20:49 Dose: 50 mg Documented by: Carisoprodol (Carisoprodol 350 Mg Tablet) 350 mg PO Q6H PRN PRN Reason: Muscle Spasm Last Admin: 01/16/21 18:54 Dose: 350 mg Documented by: Docusate Sodium (Docusate Sodium 100 Mg Capsule) 100 mg PO BID [facility] Last Admin: 01/17/21 08:39 Dose: 100 mg Documented by: Duloxetine HCl (Duloxetine 30 Mg Capsule) 120 mg PO DAILY [facility] Last Admin: 01/17/21 08:38 Dose: 120 mg Documented by: Enoxaparin Sodium (Enoxaparin 40 Mg/0.4 Ml Syringe) 40 mg SQ DAILY [facility] Last Admin: 01/17/21 08:37 Dose: 40 mg Documented by: Folic Acid (Folic Acid 1 Mg Tablet) 5 mg PO QDAY [facility] Last Admin: 01/17/21 08:38 Dose: 5 mg Documented by: Sodium Chloride (Sodium Chloride 0.9%) 1,000 mls @ 100 mls/hr IV .Q10H [facility] Last Admin: 01/17/21 10:44 Dose: 100 mls/hr Documented by: Ceftriaxone Sodium 2 gm/ (Dextrose) 50 mls @ 100 mls/hr IV Q24H [facility] Last Admin: 01/17/21 08:37 Dose: 100 mls/hr Documented by: Metronidazole (Flagyl) 500 mg in 100 mls @ 100 mls/hr IV Q8H [facility]; Protocol Morphine Sulfate (Morphine 4 Mg/Ml Vial) 4 mg IV Q4HP PRN; Protocol PRN Reason: Per Pain Protocol Last Admin: 01/17/21 13:33 Dose: 4 mg Documented by: [facility]ep[facility] ([facility] 20 Mg [facility]apsule) [facility] Admin: 01/17/21 08:39 Dose: 20 mg Documented by: Ondansetron HCl (Ondansetron 4 Mg/2 Ml Vial) 4 mg IV Q6HP PRN PRN Reason: Nausea And Vomiting Tofacitinib [Xeljanz Xr] 11 Mg Tablet Extended Release 1 dose PO QAM [facility] Last Admin: 01/17/21 08:40 Dose: Not Given Documented by: Pilocarpine Hcl 5 Mg (Tablet) 1 dose PO TID [facility] Last Admin: 01/17/21 08:40 Dose: Not Given Documented by: Mirabegron 50 Mg Tablet Extended Release 24 Hr 1 dose PO DAILY [facility] Last Admin: 01/17/21 08:40 Dose: Not Given Documented by: Alfuzosin 10 Mg Tablet Extended Release 24 Hr 1 dose PO QDAY [facility] Last Admin: 01/17/21 08:40 Dose: Not Given Documented by: Senna (Sennosides 1 Tablet) 2 tab PO HS [facility] Last Admin: 01/16/21 20:49 Dose: 2 tab Documented by: Sodium Chloride (0.9 % Sodium Chloride 10 Ml Syringe) 10 ml IV Q8 [facility] Last Admin: 01/17/21 14:27 Dose: Not Given Documented by: Spironolactone (Spironolactone 25 Mg Tablet) 25 mg PO DAILY [facility] Last Admin: 01/17/21 08:39 Dose: 25 mg Documented by: Temazepam (Temazepam 15 Mg Capsule) 30 mg PO QDAY [facility] Last Admin: 01/17/21 08:41 Dose: Not Given Documented by: Tramadol HCl (Tramadol 50 Mg Tablet) 50 mg PO Q4HP PRN; Protocol PRN Reason: Pain Last Admin: 01/17/21 13:33 Dose: 50 mg Documented by: Vitamin B Complex (Vitamin B Complex 1 Capsule) 1 cap PO DAILY [facility] Last Admin: 01/17/21 08:39 Dose: 1 cap Documented by: Vitamin D (Vitamin D3 1,000 Unit Tablet) 4,000 unit PO DAILY [facility] Last Admin: 01/17/21 08:39 Dose: 4,000 unit Documented by: Zolpidem Tartrate (Zolpidem 5 Mg Tablet) 5 mg PO HSP PRN PRN Reason: Insomnia Last Admin: 01/16/21 20:50 Dose: 5 mg Documented by: A/P Assessment and plan (1) Colitis: Status: Acute (2) Polyarthralgia: Status: Chronic (3) Sicca syndrome, Sjogren's: Status: Chronic (4) Rheumatoid arthritis, erosive, seronegative: Status: Chronic (5) Fibromyalgia: Status: Chronic (6) Urinary incontinence: Status: Chronic (7) Anemia, normocytic normochromic: Status: Acute (8) Hyponatremia: Status: Acute Narrative A/P Narrative: Assessment and Plans: 1. Diffuse colitis: Inpatient med surg Blood cultures no growth to date Serial lactic acid Procalcitonin 2.46 elevated C diff toxin PCR cbc w/ auto diff in the morning Clear liquid diet with advancement to regular diet as tolerated IV fluid: NS@100cc/hr Morphine 4mg IV q4hr PRN severe pain Tramadol 50mg PO q4hr PRN moderate pain Tylenol PRN fever or mild pain Zofran IV PRN nausea vomiting Rocephin and Flagyl IV for now, will transition to oral antibiotics such as Cipro/Flagyl when symptoms improve 2. Sjogren's syndrome: Continue home meds 3. Rheumatoid arthritis: Continue home meds 4. Fibromyalgia: Morphine 4mg IV q4hr PRN severe pain Tramadol 50mg PO q4hr PRN moderate pain Tylenol PRN fever or mild pain 5. Overactive bladder: Continue home meds 6. Hyponatremia: IV fluid: NS@100cc/hr CMP in the morning to trend serum sodium level 7. Anemia, normocytic normochromic: Likely secondary to hemodilution from IV fluid administration cbc w/ auto diff in the morning to trend H/H: pRBC transfusion if hemoglobin <7.0, active bleeding, or symptomatic GI ppx: continue oral PPI from home regimen DVT ppx: Lovenox Code status: DNI DNR Prognosis: stable Disposition: inpatient med surg Time Spent With Patient Time: Total time spent is greater than 50% in coordination of care (as documented) at patient's floor/unit and/or counseling patient: Total time spent with greater than 50% in coordination of care (as documented) at patient's floor/unit and/or counseling patient:: 25 - 35 minutes
[2021-01-17] MEDS: metroNIDAZOLE 500 MG/100 ML BAG IV SCH ×2 (15:11→22:18)
[2021-01-17] MEDS: AMITRIPTYLINE 25 MG TABLET PO SCH (20:23)
[2021-01-17] MEDS: SENNOSIDES 1 TABLET PO SCH (20:23)
[2021-01-17] MEDS: ZOLPIDEM 5 MG TABLET PO PRN (20:37)
[2021-01-17] MEDS: CARISOPRODOL 350 MG TABLET PO PRN (20:58)
[2021-01-18] MEDS: 0.9 % SODIUM CHLORIDE 1,000 ML IV SCH ×3 (04:16→21:36)
[2021-01-18] MEDS: ACETAMINOPHEN 325 MG TABLET PO PRN ×2 (05:03→18:58)
[2021-01-18] MEDS: CARISOPRODOL 350 MG TABLET PO PRN ×3 (05:24→21:06)
[2021-01-18] MEDS: metroNIDAZOLE 500 MG/100 ML BAG IV SCH ×3 (05:27→21:52)
[2021-01-18] MEDS: 0.9 % SODIUM CHLORIDE 10 ML SYRINGE IV SCH ×3 (05:31→21:05)
[2021-01-18] MEDS: morphine 4 MG/ML VIAL IV PRN ×3 (05:49→19:38)
[2021-01-18 06:50] LABS: Basophils # (Auto) 0.04 K/mcL (0.00-0.20); Basophils % (Auto) 0.8 % (0.0-2.0); Eosinophils # (Auto) 0.05 K/mcL (0.00-0.70); Hematocrit 31.7 % (36.0-48.0); Hemoglobin 10.3 g/dL (12.0-15.0); Lymphocytes # (Auto) 1.16 K/mcL (1.50-4.80); Lymphocytes % (Auto) 23.4 % (15.0-49.0); Mean Cell Volume 94.6 fL (80.0-100.0); Mean Corpuscular HGB Conc 32.5 g/dL (31.0-36.0); Mean Platelet Volume 9.5 fL (7.4-10.4); Monocytes # (Auto) 0.11 K/mcL (0.10-0.90); Monocytes % (Auto) 2.2 % (1.0-12.0); Neutrophils % (Auto) 72.6 % (38.0-78.0); Platelet Count 225 K/mcL (140-440); RBC 3.35 M/mcL (4.00-5.20); Red Cell Distribution Width 13.9 % (11.5-14.5)
[2021-01-18 07:18] LABS: ALT/SGPT 12 U/L (<40); AST/SGOT 27 U/L (<32); Albumin 2.5 gm/dL (3.2-5.2); Albumin/Globulin Ratio 0.9 (1.0-2.3); Alkaline Phosphatase 155 U/L (39-117); Bilirubin,Total 0.7 mg/dL (0.1-1.0); Blood Urea Nitrogen 12 mg/dL (8-23); Calcium 7.7 mg/dL (8.6-10.4); Carbon Dioxide 18 mmol/L (22-30); Chloride 101 mmol/L (96-108); Globulin 2.8 gm/dL (2.2-3.7); Glomerular Filtration Rate 102; Glucose 103 mg/dL (70-105)
[2021-01-18] MEDS: OMEPRAZOLE 20 MG CAPSULE PO SCH (07:47)
[2021-01-18] MEDS: traMADol 50 MG TABLET PO PRN ×3 (07:59→21:06)
[2021-01-18] MEDS: FOLIC ACID 1 MG TABLET PO SCH (09:13)
[2021-01-18] MEDS: DOCUSATE SODIUM 100 MG CAPSULE PO SCH ×2 (09:13→19:46)
[2021-01-18] MEDS: VITAMIN B COMPLEX 1 CAPSULE PO SCH (09:14)
[2021-01-18] MEDS: VITAMIN D3 1,000 UNIT TABLET PO SCH (09:14)
[2021-01-18] MEDS: TEMAZEPAM 15 MG CAPSULE PO SCH (09:14)
[2021-01-18] MEDS: ENOXAPARIN 40 MG/0.4 ML SYRINGE SQ SCH (09:17)
[2021-01-18] MEDS: cefTRIAXone 2 GM in DEXTROSE 5% IN WATER 50 ML IV SCH (09:22)
[2021-01-18] MEDS: DULoxetine 30 MG CAPSULE PO SCH (09:59)
[2021-01-18] MEDS: SPIRONOLACTONE 25 MG TABLET PO SCH (09:59)
[2021-01-18] MEDS: Mirabegron 50 mg tablet extended release 24 hr PO SCH (10:11)
[2021-01-18] MEDS: Pilocarpine Hcl 5 mg tablet PO SCH ×3 (10:11→21:05)
[2021-01-18] MEDS: Alfuzosin 10 mg tablet extended release 24 hr PO SCH (10:11)
--- NOTE | 2021-01-18 12:32 | Internal Med Progress Note ---
SUBJECTIVE Subjective Patient information: Note initiated : 01/18/21 at 12:29 pm Service Date, if different from initiated Date: [] Patient: Radha Dawn a 66 y/o F admitted on 01/16/21 for Abd Pain . Chief Complaint: [Diffuse colitis] History of present illness: Ms. Dawn is a 66 year old F history of rheumatoid arthritis, Sjogren's disease, fibromyalgia, overactive bladder, presenting with 2-day history of acute onset abdominal pain with nausea vomiting. Patient was in her usual state of health until yesterday when she developed acute onset bilateral lower quadrant abdominal pain with associated nausea and vomiting. The pain is being described as 10 out of 10, sharp cramping and burning and constant without radiations. No associated alleviating or exacerbating factors. Patient is also experiencing nausea and vomiting. She also have chronic fluctuating constipation and diarrhea. She is also committing of subjective fever and shaking chills. She can barely tolerate any oral intakes and all we have a few bites of [place] tips and started since yesterday. She denied sick contact recent travel or introduction of new foods. Vital signs at ED presentation largely unremarkable and no fevers. Labs significant for leukocytosis with WBC 14.8. CT of the abdomen pelvis showing signs of diffuse colitis involving both ascending transverse and descending colons. 01/17: Fever with Tmax 38.2. WBC 14.8--> 6.3 this morning. Blood cultures no growth to date. c/o severe constant sharp LLQ and RLQ abdominal pain. c/o fever. c/o nausea and vomiting. c/o alternating constipation and diarrhea. 01/18: Afebrile overnight. WBC normal level this morning. Blood cultures no growth to date. c/o severe constant sharp LLQ > RLQ abdominal pain. Also c/o nausea vomiting diarrhea and constipation alternating. Constitutional Vitals: Vital Signs Temp Pulse Resp BP Pulse Ox 36.3 C 92 H 22 117/67 94 01/18/21 08:00 01/18/21 08:00 01/18/21 08:00 01/18/21 08:00 01/18/21 08:00 Period Temp Pulse Resp BP Sys/Mcgraw Pulse Ox Last 24 Hr 36.1 C-37.4 C 74-116 16-24 107-137/64-84 90-94 Intake and Output 01/17/21 01/18/21 01/18/21 21:59 05:59 13:59 Intake Total 8337 049 3028 Output Total 5 104 Balance 6898 498 7835 Weight 91.081 kg Intake & Output: Intake & Output 01/17/21 01/18/21 01/18/21 21:59 05:59 13:59 Intake Total 9489 789 1823 Output Total 5 104 Balance 7563 270 2072 Weight 91.081 kg Intake: IV 4342 106 1359 Sodium Chloride 0.9% 1,000 ml @ 1000 1000 100 mls/hr IV .Q10H EDWIN Rx#: [id number] Rocephin 2 gm In Dextrose 5% in 50 50 Water 50 ml @ 100 mls/hr IV Q24H EDWIN Rx#:[id number] Oral 800 Output: Void Amount 100 # of times incontinent of urine 5 4 Other: Stool Size Large Small Stool Color Brown Brown Stool Consistency Soft Soft Formed Loose # Voids 1 # Bowel Movements 1 General appearance: cooperative, moderate distress, morbidly obese and no acute distress Head Head exam: Present atraumatic and normocephalic Eye Eye exam: Present EOMI and PERRL ENT ENT exam: Present mucous membranes moist, normal exam and normal external ear exam Neck Neck exam: Present normal inspection; Absent lymphadenopathy, tenderness and thyromegaly Respiratory Respiratory exam: Absent accessory muscle use, respiratory distress and wheezes Cardiovascular Cardiovascular exam: Present normal rate and rhythm; Absent JVD GI/Abdominal GI/Abdominal exam: Present normal bowel sounds, soft and tenderness; Absent organomegaly Extremities Exam Extremities exam: Present full ROM, normal capillary refill and normal inspection; Absent tenderness Neurological Exam Neurological exam: Present alert, CN II-XII intact and oriented X3; Absent motor sensory deficit Psychiatric Psychiatric exam: Present normal affect and normal mood; Absent anxious and depressed Skin Skin exam: Present dry and intact OBJ DATA Labs CBC & Chem 7: 01/18/21 05:17 01/18/21 05:17 Labs: Abnormal Lab Results 01/18/21 01/18/21 01/17/21 05:17 05:17 05:59 WBC RBC 3.35 L Hgb 10.3 L Hct 31.7 L Neut % (Auto) Lymph % (Auto) Lymph # (Auto) 1.16 L Absolute Neutrophils VBG Lactic Acid Sodium 131 L 128 L Carbon Dioxide 18 L 21 L Anion Gap 7.0 L Creatinine 0.5 L Glucose 107 H Calcium 7.7 L 7.3 L Alkaline Phosphatase 155 H 167 H Total Protein 5.3 L 5.5 L Albumin 2.5 L 3.0 L Albumin/Globulin Ratio 0.9 L Procalcitonin Urine Appearance Urine Protein Urine Urobilinogen Urine RBC Urine WBC Urine Bacteria Hyaline Casts Urine Mucus 01/17/21 01/16/21 01/16/21 05:18 10:20 10:10 WBC RBC 3.40 L Hgb 10.7 L Hct 32.4 L Neut % (Auto) 80.8 H Lymph % (Auto) 14.2 L Lymph # (Auto) 0.90 L Absolute Neutrophils VBG Lactic Acid 3.7 H Sodium Carbon Dioxide Anion Gap Creatinine Glucose Calcium Alkaline Phosphatase Total Protein Albumin Albumin/Globulin Ratio Procalcitonin 2.46 H Urine Appearance Urine Protein Urine Urobilinogen Urine RBC Urine WBC Urine Bacteria Hyaline Casts Urine Mucus 01/16/21 01/16/21 01/16/21 02:59 02:44 02:44 WBC 14.8 H RBC 3.96 L Hgb Hct Neut % (Auto) 87.3 H Lymph % (Auto) 8.1 L Lymph # (Auto) 1.20 L Absolute Neutrophils 12.96 H VBG Lactic Acid Sodium Carbon Dioxide 19 L Anion Gap Creatinine Glucose 114 H Calcium 8.4 L Alkaline Phosphatase 303 H Total Protein Albumin Albumin/Globulin Ratio Procalcitonin Urine Appearance Hazy A Urine Protein 30 A Urine Urobilinogen 4.0 A Urine RBC 16 H Urine WBC 21 H Urine Bacteria Few A Hyaline Casts 24 H Urine Mucus Few A Meds: Medications Acetaminophen (Acetaminophen 325 Mg Tablet) 650 mg PO Q6HP PRN; Protocol PRN Reason: Per Pain Protocol/Fever > 101 Last Admin: 01/18/21 05:03 Dose: 650 mg Documented by: Albuterol Sulfate (Albuterol Sulfate 200 Puff Inhaler) 1 - 2 puff INH Q4H PRN PRN Reason: Wheezing Amitriptyline HCl (Amitriptyline 25 Mg Tablet) 50 mg PO HS EDWIN Last Admin: 01/17/21 20:23 Dose: 50 mg Documented by: Carisoprodol (Carisoprodol 350 Mg Tablet) 350 mg PO Q6HP PRN PRN Reason: Muscle Spasm Last Admin: 01/18/21 11:22 Dose: 350 mg Documented by: Docusate Sodium (Docusate Sodium 100 Mg Capsule) 100 mg PO BID [facility] Last Admin: 01/18/21 09:13 Dose: 100 mg Documented by: Duloxetine HCl (Duloxetine 30 Mg Capsule) 120 mg PO DAILY [facility] Last Admin: 01/18/21 09:59 Dose: 120 mg Documented by: Enoxaparin Sodium (Enoxaparin 40 Mg/0.4 Ml Syringe) 40 mg SQ DAILY [facility] Last Admin: 01/18/21 09:17 Dose: 40 mg Documented by: Folic Acid (Folic Acid 1 Mg Tablet) 5 mg PO QDAY [facility] Last Admin: 01/18/21 09:13 Dose: 5 mg Documented by: Sodium Chloride (Sodium Chloride 0.9%) 1,000 mls @ 100 mls/hr IV .Q10H [facility] Last Admin: 01/18/21 10:29 Dose: 100 mls/hr Documented by: Ceftriaxone Sodium 2 gm/ (Dextrose) 50 mls @ 100 mls/hr IV Q24H [facility] Last Infusion: 01/18/21 09:55 Dose: Infused Documented by: Metronidazole (Flagyl) 500 mg in 100 mls @ 100 mls/hr IV Q8H [facility]; Protocol Last Infusion: 01/18/21 06:30 Dose: Infused Documented by: Morphine Sulfate (Morphine 4 Mg/Ml Vial) 4 mg IV Q4HP PRN; Protocol PRN Reason: Per Pain Protocol Last Admin: 01/18/21 09:59 Dose: 4 mg Documented by: Omeprazole (Omeprazole 20 Mg Capsule) 20 mg PO QAMAC [facility] Last Admin: 01/18/21 07:47 Dose: 20 mg Documented by: Ondansetron HCl (Ondansetron 4 Mg/2 Ml Vial) 4 mg IV Q6HP PRN PRN Reason: Nausea And Vomiting Tofacitinib [Xeljanz Xr] 11 Mg Tablet Extended Release 1 dose PO QAM [facility] Last Admin: 01/18/21 10:11 Dose: Not Given Documented by: Pilocarpine Hcl 5 Mg (Tablet) 1 dose PO TID [facility] Last Admin: 01/18/21 10:11 Dose: Not Given Documented by: Mirabegron 50 Mg Tablet Extended Release 24 Hr 1 dose PO DAILY [facility] Last Admin: 01/18/21 10:11 Dose: Not Given Documented by: Alfuzosin 10 Mg Tablet Extended Release 24 Hr 1 dose PO QDAY [facility] Last Admin: 01/18/21 10:11 Dose: Not Given Documented by: Senna (Sennosides 1 Tablet) 2 tab PO HS [facility] Last Admin: 01/17/21 20:23 Dose: 2 tab Documented by: Sodium Chloride (0.9 % Sodium Chloride 10 Ml Syringe) 10 ml IV Q8 [facility] Last Admin: 01/18/21 05:31 Dose: Not Given Documented by: Spironolactone (Spironolactone 25 Mg Tablet) 25 mg PO DAILY [facility] Last Admin: 01/18/21 09:59 Dose: 25 mg Documented by: Temazepam (Temazepam 15 Mg Capsule) 30 mg PO QDAY [facility] Last Admin: 01/18/21 09:14 Dose: 30 mg Documented by: Tramadol HCl (Tramadol 50 Mg Tablet) 50 mg PO Q4HP PRN; Protocol PRN Reason: Pain Last Admin: 01/18/21 11:22 Dose: 50 mg Documented by: Vitamin B Complex (Vitamin B Complex 1 Capsule) 1 cap PO DAILY [facility] Last Admin: 01/18/21 09:14 Dose: 1 cap Documented by: Vitamin D (Vitamin D3 1,000 Unit Tablet) 4,000 unit PO DAILY [facility] Last Admin: 01/18/21 09:14 Dose: 4,000 unit Documented by: Zolpidem Tartrate (Zolpidem 5 Mg Tablet) 5 mg PO HSP PRN PRN Reason: Insomnia Last Admin: 01/17/21 20:37 Dose: 5 mg Documented by: A/P Assessment and plan (1) Colitis: Status: Acute (2) Polyarthralgia: Status: Chronic (3) Sicca syndrome, Sjogren's: Status: Chronic (4) Rheumatoid arthritis, erosive, seronegative: Status: Chronic (5) Fibromyalgia: Status: Chronic (6) Urinary incontinence: Status: Chronic (7) Anemia, normocytic normochromic: Status: Acute (8) Hyponatremia: Status: Acute Narrative A/P Narrative: Assessment and Plans: 1. Diffuse colitis: Inpatient med surg Blood cultures no growth to date Serial lactic acid Procalcitonin 2.46 elevated C diff toxin PCR cbc w/ auto diff in the morning Clear liquid diet with advancement to regular diet as tolerated IV fluid: NS@100cc/hr Morphine 4mg IV q4hr PRN severe pain Tramadol 50mg PO q4hr PRN moderate pain Tylenol PRN fever or mild pain Zofran IV PRN nausea vomiting Rocephin and Flagyl IV for now, will transition to oral antibiotics such as Cipro/Flagyl when symptoms improve 2. Sjogren's syndrome: Continue home meds 3. Rheumatoid arthritis: Continue home meds 4. Fibromyalgia: Morphine 4mg IV q4hr PRN severe pain Tramadol 50mg PO q4hr PRN moderate pain Tylenol PRN fever or mild pain 5. Overactive bladder: Continue home meds 6. Hyponatremia: IV fluid: NS@100cc/hr CMP in the morning to trend serum sodium level 7. Anemia, normocytic normochromic: Likely secondary to hemodilution from IV fluid administration cbc w/ auto diff in the morning to trend H/H: pRBC transfusion if hemoglobin <7.0, active bleeding, or symptomatic GI ppx: continue oral PPI from home regimen DVT ppx: Lovenox Code status: DNI DNR Prognosis: stable Disposition: inpatient med surg Time Spent With Patient Time: Total time spent is greater than 50% in coordination of care (as do cumented) at patient's floor/unit and/or counseling patient: Total time spent with greater than 50% in coordination of care (as documented) at patient's floor/unit and/or counseling patient:: 25 - 35 minutes
[2021-01-18] MEDS: SENNOSIDES 1 TABLET PO SCH (19:46)
[2021-01-18] MEDS ORDERED: POTASSIUM CHLORIDE 20 MEQ TABLET PO ONE (19:51)
[2021-01-18] MEDS: AMITRIPTYLINE 25 MG TABLET PO SCH (21:06)
[2021-01-18] MEDS: ZOLPIDEM 5 MG TABLET PO PRN (21:21)
[2021-01-19] MEDS: morphine 4 MG/ML VIAL IV PRN ×4 (05:00→19:13)
[2021-01-19] MEDS: 0.9 % SODIUM CHLORIDE 10 ML SYRINGE IV SCH ×3 (05:29→22:55)
[2021-01-19] MEDS: metroNIDAZOLE 500 MG/100 ML BAG IV SCH ×3 (05:29→22:02)
[2021-01-19] MEDS: CARISOPRODOL 350 MG TABLET PO PRN ×3 (06:06→20:52)
[2021-01-19 06:51] LABS: Basophils # (Auto) 0.02 K/mcL (0.00-0.20); Basophils % (Auto) 0.4 % (0.0-2.0); Eosinophils # (Auto) 0.23 K/mcL (0.00-0.70); Eosinophils % (Auto) 4.1 % (0.0-7.0); Hematocrit 28.8 % (36.0-48.0); Hemoglobin 9.5 g/dL (12.0-15.0); Lymphocytes # (Auto) 1.16 K/mcL (1.50-4.80); Lymphocytes % (Auto) 20.6 % (15.0-49.0); Mean Cell Volume 94.4 fL (80.0-100.0); Mean Platelet Volume 9.5 fL (7.4-10.4); Monocytes # (Auto) 0.22 K/mcL (0.10-0.90); Monocytes % (Auto) 3.9 % (1.0-12.0); Platelet Count 216 K/mcL (140-440); RBC 3.05 M/mcL (4.00-5.20); Red Cell Distribution Width 13.8 % (11.5-14.5); WBC 5.6 K/mcL (4.5-11.0)
[2021-01-19 07:26] LABS: ALT/SGPT 19 U/L (<40); AST/SGOT 28 U/L (<32); Albumin 2.5 gm/dL (3.2-5.2); Alkaline Phosphatase 130 U/L (39-117); Bilirubin,Total 0.5 mg/dL (0.1-1.0); Blood Urea Nitrogen 8 mg/dL (8-23); Calcium 7.4 mg/dL (8.6-10.4); Carbon Dioxide 21 mmol/L (22-30); Chloride 102 mmol/L (96-108); Globulin 2.6 gm/dL (2.2-3.7); Glomerular Filtration Rate 96; Glucose 84 mg/dL (70-105)
[2021-01-19] MEDS: traMADol 50 MG TABLET PO PRN ×2 (07:40→22:42)
[2021-01-19] MEDS: OMEPRAZOLE 20 MG CAPSULE PO SCH (07:42)
--- NOTE | 2021-01-19 09:16 | Discharge Summary ---
Discharge Provider Provider Patient information: Note initiated : 01/19/21 at 9:14 am Service Date, if different from initiated Date: [] Patient: Radha Dawn 66 y/o F admitted on 01/16/21 for Abd Pain . Chief Complaint: [Left ureteral and kidney stones] Date of admission: 01/16/21 09:00 Primary care physician: Lenard Galvan DO Consults: 01/16/21 Consult to Physician [CONS] Stat Comment: colitis Consulting Provider: Dudley Ace Reason For Exam: Physician to Consult Discharge Meds Discharge Medications Home Medications Rubber Cane Stopper MISCELLANE 05/17/16 [History Confirmed 02/01/20 Last Taken Unknown] Thigh High Compression Stockings MISCELLANE 05/17/16 [History Confirmed 02/01/20 Last Taken Unknown] albuterol sulfate 90 mcg/actuation aerosol inhaler See Rx Instructions INHALATION Q4H PRN g 05/17/16 [History Confirmed 01/16/21 Last Taken Unknown] cane 05/17/16 [History Confirmed 02/01/20 Last Taken Unknown] carisoprodol 350 mg tablet 350 mg PO Q6H PRN tab 05/17/16 [History Confirmed 01/16/21 Last Taken 01/15/21] cushion 05/17/16 [History Confirmed 02/01/20 Last Taken Unknown] leucovorin calcium 5 mg tablet 5 mg PO .COMPLEX tab 05/17/16 [History Confirmed 02/01/20 Last Taken Unknown] omeprazole 20 mg capsule,delayed release 20 mg PO QDAY cap 05/17/16 [History Confirmed 01/16/21 Last Taken 01/15/21] pilocarpine HCl 5 mg tablet 5 mg PO TID 05/17/16 [History Confirmed 01/16/21 Last Taken 01/15/21] temazepam 15 mg capsule 30 mg PO QDAY cap 05/17/16 [History Confirmed 01/16/21 Last Taken Unknown] vitamin B complex 1 tab-cap PO QDAY 05/17/16 [History Confirmed 02/01/20 Last Taken Unknown] duloxetine 120 mg PO QDAY cap 05/29/16 [History Confirmed 01/16/21 Last Taken 01/15/21] tofacitinib 11 mg tablet,extended release 24 hr 11 mg PO QAM tab 06/19/19 [History Confirmed 02/01/20 Last Taken Unknown] folic acid 1 mg tablet 5 mg PO QDAY tab 07/02/19 [History Confirmed 01/16/21 Last Taken 01/15/21] methotrexate sodium (PF) 25 mg/mL injection solution 0.8 mg IM QWEEK ml 07/02/19 [History Confirmed 02/01/20 Last Taken Unknown] polyethylene glycol 3350 17 gram/dose oral powder 17 g PO ONCE PRN 07/02/19 [History Confirmed 01/16/21 Last Taken 01/12/21] amitriptyline 50 mg tablet 25 mg PO QHS 07/13/19 [History Confirmed 01/16/21 Last Taken 01/15/21] spironolactone 50 mg tablet 25 mg PO QAM tab 07/13/19 [History Confirmed 01/16/21 Last Taken Unknown] cholecalciferol (vitamin D3) 50 mcg (2,000 unit) tablet 100 mcg PO QDAY tab 02/01/20 [History Confirmed 01/16/21 Last Taken Unknown] E2-E3 20/80 1mg per gram See Rx Instructions .ROUTE .COMPLEX #60 g 02/25/20 [Rx Confirmed 02/25/20 Last Taken Unknown] alfuzosin 10 mg tablet,extended release 24 hr 10 mg PO QDAY #30 tab 05/25/20 [Rx Confirmed 01/16/21 Last Taken 01/15/21] mirabegron 50 mg tablet,extended release 24 hr 50 mg PO Q24H #30 tab 08/01/20 [Rx Confirmed 08/01/20 Last Taken Unknown] COURSE Time Spent with Patient Time attestation: Total time spent providing and/or coordinating discharge services: Patient was admitted on January 17, 2021 for left kidney and left ureteral stones. Patient was started on IV fluid, Flomax, as well as antiemetics and narcotics for symptoms controlled. Patient has passed fragments of stones from urine strands. By January 19, 2021, patient's has made great symptom improved and her symptoms were mostly controlled and without IV narcotics. As such, decision was made to discharge her home with prescriptions of oral antiemetics and oral narcotics as needed for symptoms controlled. 2 weeks PCP follow-up appointment made for her. All questions were answered prior to patient being physically discharged. EXAM Constitutional Vitals: Temp Pulse Resp BP Pulse Ox 36.7 C 94 H 22 128/79 92 01/19/21 07:33 01/19/21 07:33 01/19/21 07:33 01/19/21 07:33 01/19/21 07:45 General appearance: cooperative and no acute distress Head Head exam: Present atraumatic and normocephalic Eye Eye exam: Present EOMI and PERRL ENT ENT exam: Present mucous membranes moist, normal exam and normal external ear exam Neck Neck exam: Present normal inspection; Absent lymphadenopathy, tenderness and thyromegaly Respiratory Respiratory exam: Absent accessory muscle use, respiratory distress and wheezes Cardiovascular Cardiovascular exam: Present normal rate and rhythm; Absent JVD GI/Abdominal GI/Abdominal exam: Present normal bowel sounds, soft and tenderness; Absent organomegaly Extremities Exam Extremities exam: Present full ROM, normal capillary refill and normal inspection; Absent tenderness Back Exam Back exam: Present tenderness Neurological Exam Neurological exam: Present alert, CN II-XII intact and oriented X3; Absent motor sensory deficit Psychiatric Psychiatric exam: Present normal affect and normal mood; Absent anxious and depressed Skin Skin exam: Present dry and intact Discharge Data Data Completed and Pending Labs on day of discharge: Labs from last 24 hours 01/19/21 01/19/21 01/18/21 05:13 05:13 05:17 WBC 5.6 RBC 3.05 L Hgb 9.5 L Hct 28.8 L MCV 94.4 MCH 31.1 MCHC 33.0 RDW 13.8 Plt Count 216 MPV 9.5 Neut % (Auto) 71.0 Lymph % (Auto) 20.6 [place] % (Auto) 3.9 Eos % (Auto) 4.1 Baso % (Auto) 0.4 Lymph # (Auto) 1.16 L [place] # (Auto) 0.22 Eos # (Auto) 0.23 Baso # (Auto) 0.02 Absolute Neutrophils 4.00 Differential Comment Sodium 134 Potassium 3.1 L Chloride 102 Carbon Dioxide 21 L Anion Gap 11.0 BUN 8 Creatinine 0.6 GFR Calculation 96 Glucose 84 Calcium 7.4 L Total Bilirubin 0.5 AST 28 ALT 19 Alkaline Phosphatase 130 H Total Protein 5.1 L Albumin 2.5 L Globulin 2.6 Albumin/Globulin Ratio 1.0 Preliminary micro results at discharge 01/16/21 10:55 Blood Culture - Preliminary Blood 01/16/21 10:10 Blood Culture - Preliminary Blood Discharge Plan Patient/Caregiver Discharge Instructions Activity: increase activity as tolerated Diet: Regular Diet Instructions: Colitis (ED) Prescriptions: No Action alfuzosin 10 mg tablet extended release 24 hr 10 mg PO QDAY Qty: 30 RF: 3 temazepam 15 mg capsule 30 mg PO QDAY RF: 0 leucovorin calcium 5 mg tablet 5 mg PO .COMPLEX RF: 0 carisoprodol [Soma] 350 mg tablet 350 mg PO Q6H PRN (Reason: Pain) RF: 0 albuterol sulfate [Ventolin HFA] 90 mcg/actuation HFA aerosol inhaler See Rx Instructions INHALATION Q4H PRN (Reason: Shortness Of Breath) RF: 0 omeprazole 20 mg capsule,delayed release(DR/EC) 20 mg PO QDAY RF: 0 pilocarpine HCl 5 mg tablet 5 mg PO TID RF: 0 Thigh High Compression Stockings MISCELLANE RF: 0 Rubber Cane Stopper MISCELLANE RF: 0 (DME) cushion misc See Dose Instructions .ROUTE .MEDSUPPLY RF: 0 (DME) cane device See Dose Instructions .ROUTE .MEDSUPPLY RF: 0 vitamin B complex [B Complex 1] tablet 1 tab-cap PO QDAY RF: 0 duloxetine 60 mg capsule,delayed release(DR/EC) 120 mg PO QDAY RF: 0 Xeljanz XR 11 mg tablet extended release 24 hr 11 mg PO QAM RF: 0 folic acid 1 mg tablet 5 mg PO QDAY RF: 0 methotrexate sodium (PF) 25 mg/mL solution 0.8 mg IM QWEEK RF: 0 polyethylene glycol 3350 [Miralax] 17 gram/dose powder 17 g PO ONCE PRN (Reason: Constipation) RF: 0 spironolactone 50 mg tablet 25 mg PO QAM RF: 0 amitriptyline 50 mg tablet 50 mg tablet 25 mg PO QHS RF: 0 cholecalciferol (vitamin D3) 50 mcg (2,000 unit) tablet 100 mcg PO QDAY RF: 0 E2-E3 20/80 1mg per gram See Rx Instructions .ROUTE .COMPLEX Qty: 60 RF: 6 mirabegron 50 mg tablet extended release 24 hr 50 mg PO Q24H Qty: 30 RF: 11 Follow Up Plan Follow up with: Lenard Galvan DO [Primary Care Provider] - Prognosis: Fair
[2021-01-19] MEDS: 0.9 % SODIUM CHLORIDE 1,000 ML IV SCH ×2 (10:25→21:38)
--- NOTE | 2021-01-19 10:55 | Internal Med Progress Note ---
SUBJECTIVE Subjective Patient information: Note initiated : 01/19/21 at 10:51 am Service Date, if different from initiated Date: [] Patient: Radha Dawn a 66 y/o F admitted on 01/16/21 for Abd Pain . Chief Complaint: [colitis] History of present illness: Ms. Dawn is a 66 year old F history of rheumatoid arthritis, Sjogren's disease, fibromyalgia, overactive bladder, presenting with 2-day history of acute onset abdominal pain with nausea vomiting. Patient was in her usual state of health until yesterday when she developed acute onset bilateral lower quadrant abdominal pain with associated nausea and vomiting. The pain is being described as 10 out of 10, sharp cramping and burning and constant without radiations. No associated alleviating or exacerbating factors. Patient is also experiencing nausea and vomiting. She also have chronic fluctuating constipation and diarrhea. She is also committing of subjective fever and shaking chills. She can barely tolerate any oral intakes and all we have a few bites of Vietnamese tips and started since yesterday. She denied sick contact recent travel or introduction of new foods. Vital signs at ED presentation largely unremarkable and no fevers. Labs significant for leukocytosis with WBC 14.8. CT of the abdomen pelvis showing si gns of diffuse colitis involving both ascending transverse and descending colons. 01/17: Fever with Tmax 38.2. WBC 14.8--> 6.3 this morning. Blood cultures no growth to date. c/o severe constant sharp LLQ and RLQ abdominal pain. c/o fever. c/o nausea and vomiting. c/o alternating constipation and diarrhea. 01/18: Afebrile overnight. WBC normal level this morning. Blood cultures no growth to date. c/o severe constant sharp LLQ > RLQ abdominal pain. Also c/o nausea vomiting diarrhea and constipation alternating. 01/19: Afebrile overnight. WBC normal level this morning. Blood cultures no growth to date. c/o severe constant sharp LLQ > RLQ abdominal pain. Denies nausea vomiting diarrhea or constipation. Able to tolerate couple bites of oatmeal. Constitutional Vitals: Vital Signs Temp Pulse Resp BP Pulse Ox 36.7 C 94 H 22 128/79 92 01/19/21 07:33 01/19/21 07:33 01/19/21 07:33 01/19/21 07:33 01/19/21 07:45 Period Temp Pulse Resp BP Sys/Mcgraw Pulse Ox Last 24 Hr 35.7 C-36.7 C 88-99 18-22 110-131/70-79 91-95 Intake and Output 01/18/21 01/19/21 01/19/21 21:59 05:59 13:59 Intake Total 0597 951 0539 Output Total 201 400 900 Balance 1379 400 100 Weight 88.677 kg Intake & Output: Intake & Output 01/18/21 01/19/21 01/19/21 21:59 05:59 13:59 Intake Total 1483 990 7706 Output Total 201 400 900 Balance 1379 400 100 Weight 88.677 kg Intake: IV 6507 924 4227 Sodium Chloride 0.9% 1,000 ml @ 1000 1000 100 mls/hr IV .Q10H [facility] Rx#: [id number] Oral 480 700 Output: Void Amount 200 900 # of times incontinent of urine 1 Urine/Stool Mix 400 Other: Meal Dinner fruit cups and ice cream Breakfast Percent of Meal Consumed 25% 50% 50% Feeding Ability Assist with Tray Set Up Assist with Tray Set Up Urine Appearance Clear Urine Color Light Yolanda Stool Size Small Small Small Stool Color Brown Brown Brown Stool Consistency Soft Soft Soft Loose # Voids 1 # Bowel Movements 1 1 1 # of times incontinent of 1 Bowels General appearance: cooperative and moderate distress Head Head exam: Present atraumatic and normocephalic Eye Eye exam: Present EOMI and PERRL ENT ENT exam: Present mucous membranes moist, normal exam and normal external ear exam Neck Neck exam: Present normal inspection; Absent lymphadenopathy, tenderness and thyromegaly Respiratory Respiratory exam: Absent accessory muscle use, respiratory distress and wheezes Cardiovascular Cardiovascular exam: Present normal rate and rhythm; Absent JVD GI/Abdominal GI/Abdominal exam: Present normal bowel sounds, soft and tenderness; Absent organomegaly Extremities Exam Extremities exam: Present full ROM, normal capillary refill and normal inspec tion; Absent tenderness Neurological Exam Neurological exam: Present alert, CN II-XII intact and oriented X3; Absent motor sensory deficit Psychiatric Psychiatric exam: Present normal affect and normal mood; Absent anxious and depressed Skin Skin exam: Present dry and intact OBJ DATA Labs CBC & Chem 7: 01/19/21 05:13 01/19/21 05:13 Labs: Abnormal Lab Results 01/19/21 01/19/21 01/18/21 05:13 05:13 05:17 RBC 3.05 L Hgb 9.5 L Hct 28.8 L Neut % (Auto) Lymph % (Auto) Lymph # (Auto) 1.16 L VBG Lactic Acid Sodium 131 L Potassium 3.1 L Carbon Dioxide 21 L 18 L Anion Gap Creatinine 0.5 L Glucose Calcium 7.4 L 7.7 L Alkaline Phosphatase 130 H 155 H Total Protein 5.1 L 5.3 L Albumin 2.5 L 2.5 L Albumin/Globulin Ratio 0.9 L Procalcitonin 01/18/21 01/17/21 01/17/21 05:17 05:59 05:18 RBC 3.35 L 3.40 L Hgb 10.3 L 10.7 L Hct 31.7 L 32.4 L Neut % (Auto) 80.8 H Lymph % (Auto) 14.2 L Lymph # (Auto) 1.16 L 0.90 L VBG Lactic Acid Sodium 128 L Potassium Carbon Dioxide 21 L Anion Gap 7.0 L Creatinine Glucose 107 H Calcium 7.3 L Alkaline Phosphatase 167 H Total Protein 5.5 L Albumin 3.0 L Albumin/Globulin Ratio Procalcitonin 01/16/21 01/16/21 10:20 10:10 RBC Hgb Hct Neut % (Auto) Lymph % (Auto) Lymph # (Auto) VBG Lactic Acid 3.7 H Sodium Potassium Carbon Dioxide Anion Gap Creatinine Glucose Calcium Alkaline Phosphatase Total Protein Albumin Albumin/Globulin Ratio Procalcitonin 2.46 H Meds: Medications Acetaminophen (Acetaminophen 325 Mg Tablet) 650 mg PO Q6HP PRN; Protocol PRN Reason: Per Pain Protocol/Fever > 101 Last Admin: 01/18/21 18:58 Dose: 650 mg Documented by: Albuterol Sulfate (Albuterol Sulfate 200 Puff Inhaler) 1 - 2 puff INH Q4H PRN PRN Reason: Wheezing Amitriptyline HCl (Amitriptyline 25 Mg Tablet) 50 mg PO HS [facility] Last Admin: 01/18/21 21:06 Dose: 50 mg Documented by: Carisoprodol (Carisoprodol 350 Mg Tablet) 350 mg PO Q6HP PRN PRN Reason: Muscle Spasm Last Admin: 01/19/21 06:06 Dose: 350 mg Documented by: Docusate Sodium (Docusate Sodium 100 Mg Capsule) 100 mg PO BID [facility] Last Admin: 01/18/21 19:46 Dose: Not Given Documented by: Duloxetine HCl (Duloxetine 30 Mg Capsule) 120 mg PO DAILY [facility] Last Admin: 01/18/21 09:59 Dose: 120 mg Documented by: Enoxaparin Sodium (Enoxaparin 40 Mg/0.4 Ml Syringe) 40 mg SQ DAILY [facility] Last Admin: 01/18/21 09:17 Dose: 40 mg Documented by: Folic Acid (Folic Acid 1 Mg Tablet) 5 mg PO QDAY [facility] Last Admin: 01/18/21 09:13 Dose: 5 mg Documented by: Sodium Chloride (Sodium Chloride 0.9%) 1,000 mls @ 100 mls/hr IV .Q10H [facility] Last Admin: 01/19/21 10:25 Dose: 100 mls/hr Documented by: Ceftriaxone Sodium 2 gm/ (Dextrose) 50 mls @ 100 mls/hr IV Q24H [facility] Last Infusion: 01/18/21 09:55 Dose: Infused Documented by: Metronidazole (Flagyl) 500 mg in 100 mls @ 100 mls/hr IV Q8H [facility]; Protocol Last Admin: 01/19/21 05:29 Dose: 100 mls/hr Documented by: Morphine Sulfate (Morphine 4 Mg/Ml Vial) 4 mg IV Q4HP PRN; Protocol PRN Reason: Per Pain Protocol Last Admin: 01/19/21 09:07 Dose: 4 mg Documented by: Omeprazole (Omeprazole 20 Mg Capsule) 20 mg PO QAMAC [facility] Last Admin: 01/19/21 07:42 Dose: 20 mg Documented by: Ondansetron HCl (Ondansetron 4 Mg/2 Ml Vial) 4 mg IV Q6HP PRN PRN Reason: Nausea And Vomiting Tofacitinib [Xeljanz Xr] 11 Mg Tablet Extended Release 1 dose PO QAM [facility] Last Admin: 01/18/21 10:11 Dose: Not Given Documented by: Pilocarpine Hcl 5 Mg (Tablet) 1 dose PO TID [facility] Last Admin: 01/18/21 21:05 Dose: 1 dose Documented by: Mirabegron 50 Mg Tablet Extended Release 24 Hr 1 dose PO DAILY [facility] Last Admin: 01/18/21 10:11 Dose: Not Given Documented by: Alfuzosin 10 Mg Tablet Extended Release 24 Hr 1 dose PO QDAY [facility] Last Admin: 01/18/21 10:11 Dose: Not Given Documented by: Senna (Sennosides 1 Tablet) 2 tab PO HS [facility] Last Admin: 01/18/21 19:46 Dose: Not Given Documented by: Sodium Chloride (0.9 % Sodium Chloride 10 Ml Syringe) 10 ml IV Q8 [facility] Last Admin: 01/19/21 05:29 Dose: Not Given Documented by: Spironolactone (Spironolactone 25 Mg Tablet) 25 mg PO DAILY [facility] Last Admin: 01/18/21 09:59 Dose: 25 mg Documented by: Temazepam (Temazepam 15 Mg Capsule) 30 mg PO [facility] Tramadol HCl (Tramadol 50 Mg Tablet) 50 mg PO Q4HP PRN; Protocol PRN Reason: Pain Last Admin: 01/19/21 07:40 Dose: 50 mg Documented by: Vitamin B Complex (Vitamin B Complex 1 Capsule) 1 cap PO DAILY [facility] Last Admin: 01/18/21 09:14 Dose: 1 cap Documented by: Vitamin D (Vitamin D3 1,000 Unit Tablet) 4,000 unit PO DAILY [facility] Last Admin: 01/18/21 09:14 Dose: 4,000 unit Documented by: Zolpidem Tartrate (Zolpidem 5 Mg Tablet) 5 mg PO [facility] PRN PRN Reason: Insomnia Last Admin: 01/18/21 21:21 Dose: 5 mg Documented by: A/P Assessment and plan (1) Colitis: Status: Acute (2) Polyarthralgia: Status: Chronic (3) Sicca syndrome, Sjogren's: Status: Chronic (4) Rheumatoid arthritis, erosive, seronegative: Status: Chronic (5) Fibromyalgia: Status: Chronic (6) Urinary incontinence: Status: Chronic (7) Anemia, normocytic normochromic: Status: Acute (8) Hyponatremia: Status: Acute (9) Hypokalemia: Status: Acute Narrative A/P Narrative: Assessment and Plans: 1. Diffuse colitis: Inpatient med surg Blood cultures no growth to date Serial lactic acid Procalcitonin 2.46 elevated C diff toxin PCR cbc w/ auto diff in the morning Regular diet IV fluid: NS@100cc/hr Morphine 4mg IV q4hr PRN severe pain Tramadol 50mg PO q4hr PRN moderate pain Tylenol PRN fever or mild pain Zofran IV PRN nausea vomiting Rocephin and Flagyl IV for now, will transition to oral antibiotics such as Cipro/Flagyl when symptoms improve 2. Sjogren's syndrome: Continue home meds 3. Rheumatoid arthritis: Continue home meds 4. Fibromyalgia: Morphine 4mg IV q4hr PRN severe pain Tramadol 50mg PO q4hr PRN moderate pain Tylenol PRN fever or mild pain 5. Overactive bladder: Continue home meds 6. Hyponatremia: IV fluid: NS@100cc/hr CMP in the morning to trend serum sodium level 7. Anemia, normocytic normochromic: Likely secondary to hemodilution from IV fluid administration cbc w/ auto diff in the morning to trend H/H: pRBC transfusion if hemoglobin <7.0, active bleeding, or symptomatic 8. Hypokalemia: KCl IV replacement CMP in the morning to trend serum potassium level and repeat replacement as needed Also check serum Mg level and replace if low GI ppx: continue oral PPI from home regimen DVT ppx: Lovenox Code status: DNI DNR Prognosis: stable Disposition: inpatient med surg Time Spent With Patient Time: Total time spent is greater than 50% in coordination of care (as documented) at patient's floor/unit and/or counseling patient:
[2021-01-19] MEDS: Alfuzosin 10 mg tablet extended release 24 hr PO SCH ×2 (11:17→11:37)
[2021-01-19] MEDS: Mirabegron 50 mg tablet extended release 24 hr PO SCH (11:18)
[2021-01-19] MEDS: cefTRIAXone 2 GM in DEXTROSE 5% IN WATER 50 ML IV SCH (11:27)
[2021-01-19] MEDS: DOCUSATE SODIUM 100 MG CAPSULE PO SCH ×2 (11:30→21:38)
[2021-01-19] MEDS: SPIRONOLACTONE 25 MG TABLET PO SCH (11:30)
[2021-01-19] MEDS: DULoxetine 30 MG CAPSULE PO SCH (11:31)
[2021-01-19] MEDS: FOLIC ACID 1 MG TABLET PO SCH (11:32)
[2021-01-19] MEDS: VITAMIN D3 1,000 UNIT TABLET PO SCH (11:33)
[2021-01-19] MEDS: VITAMIN B COMPLEX 1 CAPSULE PO SCH (11:33)
[2021-01-19] MEDS: Pilocarpine Hcl 5 mg tablet PO SCH ×3 (11:35→20:46)
[2021-01-19] MEDS: ENOXAPARIN 40 MG/0.4 ML SYRINGE SQ SCH (11:39)
[2021-01-19] MEDS ORDERED: POTASSIUM CHLORIDE 40 MEQ in DEXTROSE 5% IN WATER 500 ML IV ONE (13:00)
[2021-01-19] MEDS: ALBUTEROL SULFATE 200 PUFF INHALER INH PRN ×2 (17:11→20:46)
--- NOTE | 2021-01-19 19:52 | Internal Med Progress Note ---
SUBJECTIVE Subjective Patient information: Note initiated : 01/20/21 at 7:44 pm Service Date, if different from initiated Date: [] Patient: Radha Dawn a 66 y/o F admitted on 01/16/21 for Abd Pain . Chief Complaint: [] Interval history: History of present illness: Ms. Dawn is a 66 year old F history of rheumatoid arthritis, Sjogren's disease, fibromyalgia, overactive bladder, presenting with 2-day history of acute onset abdominal pain with nausea vomiting. Patient was in her usual state of health until yesterday when she developed acute onset bilateral lower quadrant abdominal pain with associated nausea and vomiting. The pain is being described as 10 out of 10, sharp cramping and burning and constant without radiations. No associated alleviating or exacerbating factors. Patient is also experiencing nausea and vomiting. She also have chronic fluctuating constipation and diarrhea. She is also committing of subjective fever and shaking chills. She can barely tolerate any oral intakes and all we have a few bites of [place]ri[place] tips and started since yesterday. She denied sick contact recent travel or introduction of new foods. Vital signs at ED presentation largely unremarkable and no fevers. Labs significant for leukocytosis with WBC 14.8. CT of the abdomen pelvis showing signs of diffuse colitis involving both ascending transverse and descending colons. 01/17: Fever with Tmax 38.2. WBC 14.8--> 6.3 this morning. Blood cultures no growth to date. c/o severe constant sharp LLQ and RLQ abdominal pain. c/o fever. c/o nausea and vomiting. c/o alternating constipation and diarrhea. 01/18: Afebrile overnight. WBC normal level this morning. Blood cultures no growth to date. c/o severe constant sharp LLQ > RLQ abdominal pain. Also c/o nausea vomiting diarrhea and constipation alternating. 01/19: Afebrile overnight. WBC normal level this morning. Blood cultures no growth to date. c/o severe constant sharp LLQ > RLQ abdominal pain. Denies nausea vomiting diarrhea or constipation. Able to tolerate couple bites of oatmeal. 01/20: Feels about the same as yesterday, having bowel movements and tolerating some oral intake, appears volume overloaded-discontinued IV fluid. Review of Systems: no fevers, stable abdominal pain Physical Exam Head: Atraumatic, normal inspection. Eyes: normal appearance, no scleral icterus. Neck: full ROM Respiratory: no respiratory distress. Cardiovascular: normal rate and rhythm, S1, S2. GI/Abdominal: soft, tenderness mostly in left lower quadrant, no guarding Extremities: full range of motion, nontender. Neurological: CN II-XII intact, intact motor, intact sensation. Psychiatric: normal mood. Skin: warm, normal color Constitutional Vitals: Vital Signs Temp Pulse Resp BP Pulse Ox 98 F 93 H 22 124/83 95 01/19/21 15:54 01/19/21 15:54 01/19/21 15:54 01/19/21 15:54 01/19/21 15:54 Period Temp Pulse Resp BP Sys/Mcgraw Pulse Ox Last 24 Hr 96.3 F-98.3 F 88-98 -22 110-130/71-83 91-95 Intake and Output 01/19/21 01/19/21 01/19/21 05:59 13:59 21:59 Intake Total 800 1150 500 Output Total 400 1450 200 Balance 400 -300 300 Weight 88.677 kg Patient Weight 01/20/21 05:59 Weight 88.677 kg Intake & Output: Intake & Output 01/19/21 01/19/21 01/19/21 05:59 13:59 21:59 Intake Total 800 1150 500 Output Total 400 1450 200 Balance 400 -300 300 Weight 88.677 kg Intake: IV 100 1150 100 Sodium Chloride 0.9% 1,000 ml @ 1000 100 mls/hr IV .Q10H [facility] Rx#: [id number] Rocephin 2 gm In Dextrose 5% in 50 Water 50 ml @ 100 mls/hr IV Q24H [facility] Rx#:[id number] Oral 700 400 Output: Void Amount 1450 200 Urine/Stool Mix 400 Other: Meal fruit cups and ice cream Breakfast Dinner Percent of Meal Consumed 50% 50% 0% Feeding Ability Assist with Tray Set Up Urine Appearance Clear Clear Urine Color Bright Yellow Bright Yellow Stool Size Small Small Stool Color Brown Brown Stool Consistency Soft Soft # Bowel Movements 1 1 # of times incontinent of 1 Bowels OBJ DATA Labs CBC & Chem 7: 01/19/21 05:13 01/19/21 05:13 Labs: Abnormal Lab Results 01/19/21 01/19/21 01/18/21 05:13 05:13 05:17 RBC 3.05 L Hgb 9.5 L Hct 28.8 L Neut % (Auto) Lymph % (Auto) Lymph # (Auto) 1.16 L Sodium 131 L Potassium 3.1 L Carbon Dioxide 21 L 18 L Anion Gap Creatinine 0.5 L Glucose Calcium 7.4 L 7.7 L Alkaline Phosphatase 130 H 155 H Total Protein 5.1 L 5.3 L Albumin 2.5 L 2.5 L Albumin/Globulin Ratio 0.9 L 01/18/21 01/17/21 01/17/21 05:17 05:59 05:18 RBC 3.35 L 3.40 L Hgb 10.3 L 10.7 L Hct 31.7 L 32.4 L Neut % (Auto) 80.8 H Lymph % (Auto) 14.2 L Lymph # (Auto) 1.16 L 0.90 L Sodium 128 L Potassium Carbon Dioxide 21 L Anion Gap 7.0 L Creatinine Glucose 107 H Calcium 7.3 L Alkaline Phosphatase 167 H Total Protein 5.5 L Albumin 3.0 L Albumin/Globulin Ratio Meds: Medications Acetaminophen (Acetaminophen 325 Mg Tablet) 650 mg PO Q6HP PRN; Protocol PRN Reason: Per Pain Protocol/Fever > 101 Last Admin: 01/18/21 18:58 Dose: 650 mg Documented by: Albuterol Sulfate (Albuterol Sulfate 200 Puff Inhaler) 1 - 2 puff INH Q4H PRN PRN Reason: Wheezing Last Admin: 01/19/21 17:11 Dose: 2 puff Documented by: Amitriptyline HCl (Amitriptyline 25 Mg Tablet) 50 mg PO [facility] Last Admin: 01/18/21 21:06 Dose: 50 mg Documented by: Carisoprodol (Carisoprodol 350 Mg Tablet) 350 mg PO Q6HP PRN PRN Reason: Muscle Spasm Last Admin: 01/19/21 15:05 Dose: 350 mg Documented by: Docusate Sodium (Docusate Sodium 100 Mg Capsule) 100 mg PO BID [facility] Last Admin: 01/19/21 11:30 Dose: Not Given Documented by: Duloxetine HCl (Duloxetine 30 Mg Capsule) 120 mg PO DAILY [facility] Last Admin: 01/19/21 11:31 Dose: 120 mg Documented by: Enoxaparin Sodium (Enoxaparin 40 Mg/0.4 Ml Syringe) 40 mg SQ DAILY [facility] Last Admin: 01/19/21 11:39 Dose: 40 mg Documented by: Folic Acid (Folic Acid 1 Mg Tablet) 5 mg PO QDAY [facility] Last Admin: 01/19/21 11:32 Dose: 5 mg Documented by: Sodium Chloride (Sodium Chloride 0.9%) 1,000 mls @ 100 mls/hr IV .Q10H [facility] Last Admin: 01/19/21 10:25 Dose: 100 mls/hr Documented by: Ceftriaxone Sodium 2 gm/ (Dextrose) 50 mls @ 100 mls/hr IV Q24H [facility] Last Infusion: 01/19/21 12:00 Dose: Infused Documented by: Metronidazole (Flagyl) 500 mg in 100 mls @ 100 mls/hr IV Q8H [facility]; Protocol Last Infusion: 01/19/21 14:55 Dose: Infused Documented by: Morphine Sulfate (Morphine 4 Mg/Ml Vial) 4 mg IV Q4HP PRN; Protocol PRN Reason: Per Pain Protocol Last Admin: 01/19/21 19:13 Dose: 4 mg Documented by: Omeprazole (Omeprazole 20 Mg Capsule) 20 mg PO QAMAC [facility] Last Admin: 01/19/21 07:42 Dose: 20 mg Documented by: Ondansetron HCl (Ondansetron 4 Mg/2 Ml Vial) 4 mg IV Q6HP PRN PRN Reason: Nausea And Vomiting Tofacitinib [Xeljanz Xr] 11 Mg Tablet Extended Release 1 dose PO QAM [facility] Last Admin: 01/19/21 11:18 Dose: Not Given Documented by: Pilocarpine Hcl 5 Mg (Tablet) 1 dose PO TID [facility] Last Admin: 01/19/21 15:54 Dose: 1 dose Documented by: Mirabegron 50 Mg Tablet Extended Release 24 Hr 1 dose PO DAILY [facility] Last Admin: 01/19/21 11:18 Dose: Not Given Documented by: Alfuzosin 10 Mg Tablet Extended Release 24 Hr 1 dose PO QDAY [facility] Last Admin: 01/19/21 11:37 Dose: 1 dose Documented by: Senna (Sennosides 1 Tablet) 2 tab PO HS [facility] Last Admin: 01/18/21 19:46 Dose: Not Given Documented by: Sodium Chloride (0.9 % Sodium Chloride 10 Ml Syringe) 10 ml IV Q8 [facility] Last Admin: 01/19/21 13:54 Dose: Not Given Documented by: Spironolactone (Spironolactone 25 Mg Tablet) 25 mg PO DAILY [facility] Last Admin: 01/19/21 11:30 Dose: 25 mg Documented by: Temazepam (Temazepam 15 Mg Capsule) 30 mg PO HS [facility] Tramadol HCl (Tramadol 50 Mg Tablet) 50 mg PO Q4HP PRN; Protocol PRN Reason: Pain Last Admin: 01/19/21 07:40 Dose: 50 mg Documented by: Vitamin B Complex (Vitamin B Complex 1 Capsule) 1 cap PO DAILY [facility] Last Admin: 01/19/21 11:33 Dose: 1 cap Documented by: Vitamin D (Vitamin D3 1,000 Unit Tablet) 4,000 unit PO DAILY [facility] Last Admin: 01/19/21 11:33 Dose: 4,000 unit Documented by: Zolpidem Tartrate (Zolpidem 5 Mg Tablet) 5 mg PO HSP PRN PRN Reason: Insomnia Last Admin: 01/18/21 21:21 Dose: 5 mg Documented by: A/P Narrative A/P Narrative: Assessment: 66 year old female with a history of rheumatoid arthritis (on tofacitinib), Sjogren syndrome, fibromyalgia, overactive bladder admitted for colitis of the transverse, descending, and sigmoid colon. This is presumably infectious colitis. #Colitis of transverse, descending, and sigmoid colon #Immunosuppression secondary to Tofacitinib #Rheumatoid arthritis #Sjogren syndrome #Fibromyalgia #Anemia #Hypokalemia Plan -Continue Ceftriaxone and Flagyl. -Analgesics prn. -Hold Methotrexate for now. . -Continue other essential home medications. 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
[2021-01-19] MEDS: AMITRIPTYLINE 25 MG TABLET PO SCH (20:46)
[2021-01-19] MEDS: TEMAZEPAM 15 MG CAPSULE PO SCH (20:46)
[2021-01-19] MEDS: SENNOSIDES 1 TABLET PO SCH (21:38)
[2021-01-20] MEDS: morphine 4 MG/ML VIAL IV PRN ×4 (03:13→16:48)
[2021-01-20] MEDS: ALBUTEROL SULFATE 200 PUFF INHALER INH PRN ×3 (03:13→20:34)
[2021-01-20] MEDS: 0.9 % SODIUM CHLORIDE 1,000 ML IV SCH ×2 (03:30→17:07)
[2021-01-20] MEDS: CARISOPRODOL 350 MG TABLET PO PRN ×3 (05:34→19:38)
[2021-01-20] MEDS: metroNIDAZOLE 500 MG/100 ML BAG IV SCH ×3 (06:11→23:28)
[2021-01-20] MEDS: 0.9 % SODIUM CHLORIDE 10 ML SYRINGE IV SCH ×3 (06:11→20:35)
[2021-01-20] MEDS: OMEPRAZOLE 20 MG CAPSULE PO SCH (07:29)
[2021-01-20] MEDS: DULoxetine 30 MG CAPSULE PO SCH (09:24)
[2021-01-20] MEDS: FOLIC ACID 1 MG TABLET PO SCH (09:25)
[2021-01-20] MEDS: SPIRONOLACTONE 25 MG TABLET PO SCH (09:25)
[2021-01-20] MEDS: VITAMIN B COMPLEX 1 CAPSULE PO SCH (09:26)
[2021-01-20] MEDS: DOCUSATE SODIUM 100 MG CAPSULE PO SCH ×2 (09:26→20:35)
[2021-01-20] MEDS: Alfuzosin 10 mg tablet extended release 24 hr PO SCH (09:27)
[2021-01-20] MEDS: Pilocarpine Hcl 5 mg tablet PO SCH ×3 (09:28→20:34)
[2021-01-20] MEDS: Mirabegron 50 mg tablet extended release 24 hr PO SCH (09:28)
[2021-01-20] MEDS: cefTRIAXone 2 GM in DEXTROSE 5% IN WATER 50 ML IV SCH (09:32)
[2021-01-20] MEDS: ENOXAPARIN 40 MG/0.4 ML SYRINGE SQ SCH (09:51)
[2021-01-20] MEDS: VITAMIN D3 1,000 UNIT TABLET PO SCH (09:53)
[2021-01-20] MEDS: traMADol 50 MG TABLET PO PRN (15:41)
[2021-01-20] MEDS: TEMAZEPAM 15 MG CAPSULE PO SCH (20:34)
[2021-01-20] MEDS: AMITRIPTYLINE 25 MG TABLET PO SCH (20:34)
[2021-01-20] MEDS: SENNOSIDES 1 TABLET PO SCH (20:35)
[2021-01-21] MEDS: morphine 4 MG/ML VIAL IV PRN ×5 (02:19→20:13)
[2021-01-21] MEDS: CARISOPRODOL 350 MG TABLET PO PRN ×3 (04:25→20:12)
[2021-01-21] MEDS: traMADol 50 MG TABLET PO PRN ×2 (05:18→18:42)
[2021-01-21] MEDS: 0.9 % SODIUM CHLORIDE 10 ML SYRINGE IV SCH ×3 (05:19→20:13)
[2021-01-21] MEDS: metroNIDAZOLE 500 MG/100 ML BAG IV SCH ×3 (05:52→22:42)
[2021-01-21 06:44] LABS: ALT/SGPT 24 U/L (<40); AST/SGOT 29 U/L (<32); Albumin 2.6 gm/dL (3.2-5.2); Alkaline Phosphatase 87 U/L (39-117); Bilirubin,Direct < 0.2 mg/dL (0-0.3); Bilirubin,Total 0.3 mg/dL (0.1-1.0); Blood Urea Nitrogen 3 mg/dL (8-23); Carbon Dioxide 24 mmol/L (22-30); Chloride 102 mmol/L (96-108); Globulin 2.5 gm/dL (2.2-3.7); Glomerular Filtration Rate 102; Glucose 101 mg/dL (70-105); Lactate Dehydrogenase 172 U/L (135-225); Phosphorous 1.5 mg/dL (2.5-4.5); Triglycerides 82 mg/dL (<150); Uric Acid 2.5 mg/dL (2.5-8.0)
[2021-01-21] MEDS: OMEPRAZOLE 20 MG CAPSULE PO SCH (07:06)
[2021-01-21] MEDS: DOCUSATE SODIUM 100 MG CAPSULE PO SCH ×2 (09:24→20:24)
[2021-01-21] MEDS: cefTRIAXone 2 GM in DEXTROSE 5% IN WATER 50 ML IV SCH (09:34)
[2021-01-21] MEDS: VITAMIN B COMPLEX 1 CAPSULE PO SCH (09:37)
[2021-01-21] MEDS: FOLIC ACID 1 MG TABLET PO SCH (09:37)
[2021-01-21] MEDS: SPIRONOLACTONE 25 MG TABLET PO SCH (09:38)
[2021-01-21] MEDS: VITAMIN D3 1,000 UNIT TABLET PO SCH (09:39)
[2021-01-21] MEDS: DULoxetine 30 MG CAPSULE PO SCH (09:40)
[2021-01-21] MEDS: NEUTRA PHOS 1 PACKET PO SCH ×2 (09:41→20:13)
[2021-01-21] MEDS: Alfuzosin 10 mg tablet extended release 24 hr PO SCH (09:49)
[2021-01-21] MEDS: Pilocarpine Hcl 5 mg tablet PO SCH ×3 (09:49→20:13)
[2021-01-21] MEDS: ENOXAPARIN 40 MG/0.4 ML SYRINGE SQ SCH (09:56)
[2021-01-21] MEDS: Mirabegron 50 mg tablet extended release 24 hr PO SCH (10:37)
--- NOTE | 2021-01-21 18:28 | Internal Med Progress Note ---
SUBJECTIVE Subjective Patient information: Note initiated : 01/21/21 at 6:25 pm Service Date, if different from initiated Date: [] Patient: Radha Dawn a 66 y/o F admitted on 01/16/21 for Abd Pain . Chief Complaint: [] Interval history: History of present illness: Ms. Dawn is a 66 year old F history of rheumatoid arthritis, Sjogren's disease, fibromyalgia, overactive bladder, presenting with 2-day history of acute onset abdominal pain with nausea vomiting. Patient was in her usual state of health until yesterday when she developed acute onset bilateral lower quadrant abdominal pain with associated nausea and vomiting. The pain is being described as 10 out of 10, sharp cramping and burning and constant without radiations. No associated alleviating or exacerbating factors. Patient is also experiencing nausea and vomiting. She also have chronic fluctuating constipation and diarrhea. She is also committing of subjective fever and shaking chills. She can barely tolerate any oral intakes and all we have a few bites of English tips and started since yesterday. She denied sick contact recent travel or introduction of new foods. Vital signs at ED presentation largely unremarkable and no fevers. Labs significant for leukocytosis with WBC 14.8. CT of the abdomen pelvis showing signs of diffuse colitis involving both ascending transverse and descending colons. 01/17: Fever with Tmax 38.2. WBC 14.8--> 6.3 this morning. Blood cultures no growth to date. c/o severe constant sharp LLQ and RLQ abdominal pain. c/o fever. c/o nausea and vomiting. c/o alternating constipation and diarrhea. 01/18: Afebrile overnight. WBC normal level this morning. Blood cultures no growth to date. c/o severe constant sharp LLQ > RLQ abdominal pain. Also c/o nausea vomiting diarrhea and constipation alternating. 01/19: Afebrile overnight. WBC normal level this morning. Blood cultures no growth to date. c/o severe constant sharp LLQ > RLQ abdominal pain. Denies nausea vomiting diarrhea or constipation. Able to tolerate couple bites of oatmeal. 01/20: Feels about the same as yesterday, having bowel movements and tolerating some oral intake, appears volume overloaded-discontinued IV fluid. 01/21: Volume status improved without intervention, making a lot of urine. Abdominal pain stable, improving appetite. Continues on IV antibiotics but could probably transition to oral soon. Anticipating discharge to SNF soon. Review of Systems: no fevers, stable abdominal pain Physical Exam Head: Atraumatic, normal inspection. Eyes: normal appearance, no scleral icterus. Neck: full ROM Respiratory: no respiratory distress. Cardiovascular: normal rate and rhythm, S1, S2. GI/Abdominal: soft, tenderness mostly in left lower quadrant, no guarding Extremities: full range of motion, nontender. Neurological: CN II-XII intact, intact motor, intact sensation. Psychiatric: normal mood. Skin: warm, normal color Constitutional Vitals: Vital Signs Temp Pulse Resp BP Pulse Ox 97 F 85 18 145/70 97 01/21/21 16:00 01/21/21 16:00 01/21/21 16:00 01/21/21 16:00 01/21/21 16:00 Period Temp Pulse Resp BP Sys/Mcgraw Pulse Ox Last 24 Hr 97 F-99.4 F 83-104 18-24 118-156/67-82 93-97 Intake and Output 01/21/21 01/21/21 01/21/21 05:59 13:59 21:59 Intake Total 296 677 6855 Output Total 651 1350 925 Balance -551 -1200 512 Intake & Output: Intake & Output 01/21/21 01/21/21 01/21/21 05:59 13:59 21:59 Intake Total 757 328 1023 Output Total 651 1350 925 Balance -551 -1200 512 Intake: Nourishment/Supplement quantity 237 (ml) IV 100 150 100 Rocephin 2 gm In Dextrose 5% in 50 Water 50 ml @ 100 mls/hr IV Q24H [facility] Rx#:[id number] Oral 1100 Output: Void Amount 650 1350 925 # of times incontinent of urine 1 Other: Meal Lunch Percent of Meal Consumed 25% Feeding Ability Assist with Tray Set Up Nourishment/Supplement name Ensure Enlive Urine Appearance Clear Clear Urine Color Bright Yellow Bright Yellow Dark Yellow Urine Odor Normal Normal Stool Size Small Smear Smear Stool Color Brown Brown Brown Stool Consistency Soft Loose Soft # Bowel Movements 1 1 OBJ DATA Labs CBC & Chem 7: 01/19/21 05:13 01/21/21 05:13 Labs: Abnormal Lab Results 01/21/21 01/19/21 01/19/21 05:13 05:13 05:13 RBC 3.05 L Hgb 9.5 L Hct 28.8 L Lymph # (Auto) 1.16 L Potassium 3.1 L Carbon Dioxide 21 L BUN 3 L Creatinine 0.5 L Calcium 8.0 L 7.4 L Phosphorus 1.5 L Alkaline Phosphatase 130 H Total Protein 5.1 L 5.1 L Albumin 2.6 L 2.5 L Meds: Medications Acetaminophen (Acetaminophen 325 Mg Tablet) 650 mg PO Q6HP PRN; Protocol PRN Reason: Per Pain Protocol/Fever > 101 Last Admin: 01/18/21 18:58 Dose: 650 mg Documented by: Albuterol Sulfate (Albuterol Sulfate 200 Puff Inhaler) 1 - 2 puff INH Q4H PRN PRN Reason: Wheezing Last Admin: 01/20/21 15:31 Dose: 2 puff Documented by: Amitriptyline HCl (Amitriptyline 25 Mg Tablet) 50 mg PO HS [facility] Last Admin: 01/20/21 20:34 Dose: 50 mg Documented by: Carisoprodol (Carisoprodol 350 Mg Tablet) 350 mg PO Q6HP PRN PRN Reason: Muscle Spasm Last Admin: 01/21/21 14:02 Dose: 350 mg Documented by: Docusate Sodium (Docusate Sodium 100 Mg Capsule) 100 mg PO BID [facility] Last Admin: 01/21/21 09:24 Dose: Not Given Documented by: Duloxetine HCl (Duloxetine 30 Mg Capsule) 120 mg PO DAILY [facility] Last Admin: 01/21/21 09:40 Dose: 120 mg Documented by: Enoxaparin Sodium (Enoxaparin 40 Mg/0.4 Ml Syringe) 40 mg SQ DAILY [facility] Last Admin: 01/21/21 09:56 Dose: 40 mg Documented by: Folic Acid (Folic Acid 1 Mg Tablet) 5 mg PO QDAY [facility] Last Admin: 01/21/21 09:37 Dose: 5 mg Documented by: Ceftriaxone Sodium 2 gm/ (Dextrose) 50 mls @ 100 mls/hr IV Q24H [facility] Last Infusion: 01/21/21 10:05 Dose: Infused Documented by: Metronidazole (Flagyl) 500 mg in 100 mls @ 100 mls/hr IV Q8H [facility]; Protocol Last Infusion: 01/21/21 15:05 Dose: Infused Documented by: Morphine Sulfate (Morphine 4 Mg/Ml Vial) 4 mg IV Q4HP PRN; Protocol PRN Reason: Per Pain Protocol Last Admin: 01/21/21 16:23 Dose: 4 mg Documented by: Omeprazole (Omeprazole 20 Mg Capsule) 20 mg PO QAMAC [facility] Last Admin: 01/21/21 07:06 Dose: 20 mg Documented by: Ondansetron HCl (Ondansetron 4 Mg/2 Ml Vial) 4 mg IV Q6HP PRN PRN Reason: Nausea And Vomiting Pilocarpine Hcl 5 Mg (Tablet) 1 dose PO TID [facility] Last Admin: 01/21/21 14:02 Dose: 1 dose Documented by: Mirabegron 50 Mg Tablet Extended Release 24 Hr 1 dose PO DAILY [facility] Last Admin: 01/21/21 10:37 Dose: Not Given Documented by: Alfuzosin 10 Mg Tablet Extended Release 24 Hr 1 dose PO QDAY [facility] Last Admin: 01/21/21 09:49 Dose: 1 dose Documented by: Potassium/Phosphorus/Sodium (Neutra Phos 1 Packet) 1 packet PO BID [facility] Stop: 01/24/21 08:59 Last Admin: 01/21/21 09:41 Dose: 1 packet Documented by: Senna (Sennosides 1 Tablet) 2 tab PO [facility] Last Admin: 01/20/21 20:35 Dose: Not Given Documented by: Sodium Chloride (0.9 % Sodium Chloride 10 Ml Syringe) 10 ml IV Q8 [facility] Last Admin: 01/21/21 14:12 Dose: 10 ml Documented by: Spironolactone (Spironolactone 25 Mg Tablet) 25 mg PO DAILY [facility] Last Admin: 01/21/21 09:38 Dose: 25 mg Documented by: Temazepam (Temazepam 15 Mg Capsule) 30 mg PO [facility] Last Admin: 01/20/21 20:34 Dose: 30 mg Documented by: Tramadol HCl (Tramadol 50 Mg Tablet) 50 mg PO Q4HP PRN; Protocol PRN Reason: Pain Last Admin: 01/21/21 05:18 Dose: 50 mg Documented by: Vitamin B Complex (Vitamin B Complex 1 Capsule) 1 cap PO DAILY [facility] Last Admin: 01/21/21 09:37 Dose: 1 cap Documented by: Vitamin D (Vitamin D3 1,000 Unit Tablet) 4,000 unit PO DAILY [facility] Last Admin: 01/21/21 09:39 Dose: 4,000 unit Documented by: Zolpidem Tartrate (Zolpidem 5 Mg Tablet) 5 mg PO HSP PRN PRN Reason: Insomnia Last Admin: 01/18/21 21:21 Dose: 5 mg Documented by: A/P Narrative A/P Narrative: Assessment: 66 year old female with a history of rheumatoid arthritis (on tofacitinib), Sjogren syndrome, fibromyalgia, overactive bladder admitted for colitis of the transverse, descending, and sigmoid colon. This is presumably infectious colitis. #Colitis of transverse, descending, and sigmoid colon #Immunosuppression secondary to Tofacitinib #Rheumatoid arthritis #Sjogren syndrome #Fibromyalgia #Anemia #Hypokalemia Plan -Continue Ceftriaxone and Flagyl, probably transition to oral antibiotic tomorrow.. -Analgesics prn. -Hold Methotrexate for now. -Continue other essential home medications. -DVT ppx: Lovenox SQ -Code status: Full -Disposition: probably SNF Time Spent With Patient Time: Total time spent is greater than 50% in coordination of care (as docum ented) at patient's floor/unit and/or counseling patient:
[2021-01-21] MEDS: TEMAZEPAM 15 MG CAPSULE PO SCH (20:12)
[2021-01-21] MEDS: AMITRIPTYLINE 25 MG TABLET PO SCH (20:13)
[2021-01-21] MEDS: SENNOSIDES 1 TABLET PO SCH (20:24)
[2021-01-21] MEDS: ALBUTEROL SULFATE 200 PUFF INHALER INH PRN (21:40)
[2021-01-22] MEDS: morphine 4 MG/ML VIAL IV PRN ×2 (02:21→07:18)
[2021-01-22] MEDS: CARISOPRODOL 350 MG TABLET PO PRN ×3 (04:10→19:02)
[2021-01-22] MEDS: metroNIDAZOLE 500 MG/100 ML BAG IV SCH (05:58)
[2021-01-22] MEDS: 0.9 % SODIUM CHLORIDE 10 ML SYRINGE IV SCH ×3 (05:59→21:15)
[2021-01-22] MEDS: traMADol 50 MG TABLET PO PRN ×4 (06:03→21:16)
[2021-01-22 07:01] LABS: ALT/SGPT 20 U/L (<40); AST/SGOT 25 U/L (<32); Albumin 2.4 gm/dL (3.2-5.2); Albumin/Globulin Ratio 0.9 (1.0-2.3); Alkaline Phosphatase 78 U/L (39-117); Bilirubin,Direct < 0.2 mg/dL (0-0.3); Bilirubin,Total 0.3 mg/dL (0.1-1.0); Blood Urea Nitrogen 5 mg/dL (8-23); Carbon Dioxide 22 mmol/L (22-30); Chloride 98 mmol/L (96-108); Globulin 2.8 gm/dL (2.2-3.7); Glomerular Filtration Rate 109; Glucose 100 mg/dL (70-105); Lactate Dehydrogenase 169 U/L (135-225); Phosphorous 3.3 mg/dL (2.5-4.5); Triglycerides 79 mg/dL (<150); Uric Acid 2.6 mg/dL (2.5-8.0)
[2021-01-22] MEDS: OMEPRAZOLE 20 MG CAPSULE PO SCH (07:17)
[2021-01-22 08:32] LABS: Basophils # (Auto) 0.03 K/mcL (0.00-0.30); Basophils % (Auto) 0.6 % (0.0-2.0); Eosinophils # (Auto) 0.26 K/mcL (0.00-0.70); Hematocrit 26.4 % (34.1-44.9); Hemoglobin 8.9 g/dL (11.2-15.7); Lymphocytes # (Auto) 1.36 K/mcL (1.50-4.80); Lymphocytes % (Auto) 26.2 % (15.5-49.0); Mean Cell Volume 95.3 fL (80.0-100.0); Mean Corpuscular HGB Conc 33.7 g/dL (31.0-36.0); Mean Platelet Volume 9.4 fL (7.4-10.4); Monocytes # (Auto) 0.38 K/mcL (0.10-0.90); Monocytes % (Auto) 7.3 % (1.0-12.0); Neutrophils % (Auto) 60.9 % (38.0-78.0); Platelet Count 251 K/mcL (140-440); RBC 2.77 M/mcL (3.59-5.38); Red Cell Distribution Width 14.9 % (11.5-14.5)
[2021-01-22 09:23] LABS: WBC 5.2 K/mcL (4.5-11.0)
[2021-01-22] MEDS: VITAMIN D3 1,000 UNIT TABLET PO SCH (09:24)
[2021-01-22] MEDS: SPIRONOLACTONE 25 MG TABLET PO SCH (09:24)
[2021-01-22] MEDS: FOLIC ACID 1 MG TABLET PO SCH (09:24)
[2021-01-22] MEDS: DOCUSATE SODIUM 100 MG CAPSULE PO SCH ×2 (09:24→21:16)
[2021-01-22] MEDS: DULoxetine 30 MG CAPSULE PO SCH (09:24)
[2021-01-22] MEDS: ENOXAPARIN 40 MG/0.4 ML SYRINGE SQ SCH (09:25)
[2021-01-22] MEDS: VITAMIN B COMPLEX 1 CAPSULE PO SCH (09:25)
[2021-01-22] MEDS: cefTRIAXone 2 GM in DEXTROSE 5% IN WATER 50 ML IV SCH (09:25)
[2021-01-22] MEDS: NEUTRA PHOS 1 PACKET PO SCH ×2 (09:25→21:15)
[2021-01-22] MEDS: Mirabegron 50 mg tablet extended release 24 hr PO SCH (09:26)
[2021-01-22] MEDS: Alfuzosin 10 mg tablet extended release 24 hr PO SCH (09:26)
[2021-01-22] MEDS: Pilocarpine Hcl 5 mg tablet PO SCH ×3 (09:26→21:17)
--- NOTE | 2021-01-22 11:27 | Internal Med Progress Note ---
SUBJECTIVE Subjective Patient information: Note initiated : 01/22/21 at 11:26 am Service Date, if different from initiated Date: [] Patient: Radha Dawn a 66 y/o F admitted on 01/16/21 for Abd Pain . Chief Complaint: [] Interval history: History of present illness: Ms. Dawn is a 66 year old F history of rheumatoid arthritis, Sjogren's disease, fibromyalgia, overactive bladder, presenting with 2-day history of acute onset abdominal pain with nausea vomiting. Patient was in her usual state of health until yesterday when she developed acute onset bilateral lower quadrant abdominal pain with associated nausea and vomiting. The pain is being described as 10 out of 10, sharp cramping and burning and constant without radiations. No associated alleviating or exacerbating factors. Patient is also experiencing nausea and vomiting. She also have chronic fluctuating constipation and diarrhea. She is also committing of subjective fever and shaking chills. She can barely tolerate any oral intakes and all we have a few bites of [place]i tips and started since yesterday. She denied sick contact recent travel or introduction of new foods. Vital signs at ED presentation largely unremarkable and no fevers. Labs significant for leukocytosis with WBC 14.8. CT of the abdomen pelvis showing signs of diffuse colitis involving both ascending transverse and descending colons. 01/17: Fever with Tmax 38.2. WBC 14.8--> 6.3 this morning. Blood cultures no growth to date. c/o severe constant sharp LLQ and RLQ abdominal pain. c/o fever. c/o nausea and vomiting. c/o alternating constipation and diarrhea. 01/18: Afebrile overnight. WBC normal level this morning. Blood cultures no growth to date. c/o severe constant sharp LLQ > RLQ abdominal pain. Also c/o nausea vomiting diarrhea and constipation alternating. 01/19: Afebrile overnight. WBC normal level this morning. Blood cultures no growth to date. c/o severe constant sharp LLQ > RLQ abdominal pain. Denies nausea vomiting diarrhea or constipation. Able to tolerate couple bites of oatmeal. 01/20: Feels about the same as yesterday, having bowel movements and tolerating some oral intake, appears volume overloaded-discontinued IV fluid. 01/21: Volume status improved without intervention, making a lot of urine. Abdominal pain stable, improving appetite. Continues on IV antibiotics but could probably transition to oral soon. Anticipating discharge to SNF soon. 01/22: Discontinue antibiotics, discontinue morphine IV prn, ongoing discharge planning probably to SNF. Review of Systems: no fevers, stable abdominal pain Physical Exam Head: Atraumatic, normal inspection. Eyes: normal appearance, no scleral icterus. Neck: full ROM Respiratory: no respiratory distress. Cardiovascular: normal rate and rhythm, S1, S2. GI/Abdominal: soft, tenderness mostly in left lower quadrant, no guarding Extremities: full range of motion, nontender. Neurological: CN II-XII intact, intact motor, intact sensation. Psychiatric: normal mood. Skin: warm, normal color Constitutional Vitals: Vital Signs Temp Pulse Resp BP Pulse Ox 98.8 F 88 20 143/83 94 01/22/21 07:13 01/22/21 07:13 01/22/21 07:13 01/22/21 07:13 01/22/21 07:13 Period Temp Pulse Resp BP Sys/Mcgraw Pulse Ox Last 24 Hr 97 F-99.1 F 83-93 - 128-145/70-88 91-97 Intake and Output 01/21/21 01/22/21 01/22/21 21:59 05:59 13:59 Intake Total 2237 450 950 Output Total 1125 1050 1350 Balance 1112 -600 -400 Weight 89.584 kg Intake & Output: Intake & Output 01/21/21 01/22/21 01/22/21 21:59 05:59 13:59 Intake Total 2237 450 950 Output Total 1125 1050 1350 Balance 1112 -600 -400 Weight 89.584 kg Intake: Nourishment/Supplement quantity 237 (ml) IV 100 100 150 Rocephin 2 gm In Dextrose 5% in 50 Water 50 ml @ 100 mls/hr IV Q24H [facility] Rx#:[id number] Oral 1900 350 800 Output: Void Amount 1125 1050 1350 Other: Meal Dinner Percent of Meal Consumed 25% Feeding Ability Assist with Tray Set Up Nourishment/Supplement name Ensure Enlive Urine Appearance Clear Clear Urine Color Dark Yellow Dark Yellow Straw Urine Odor Normal Normal Stool Size Smear Moderate Stool Color Brown Brown Stool Consistency Soft Soft Formed # Bowel Movements 1 OBJ DATA Labs CBC & Chem 7: 01/22/21 05:28 08/16/21 05:28 Labs: Abnormal Lab Results 01/22/21 01/22/21 01/21/21 05:28 05:28 05:13 RBC 2.77 L Hgb 8.9 L Hct 26.4 L RDW 14.9 H Lymph # (Auto) 1.36 L Sodium 132 L BUN 5 L 3 L Creatinine 0.4 L 0.5 L Calcium 8.0 L 8.0 L Phosphorus 1.5 L Total Protein 5.2 L 5.1 L Albumin 2.4 L 2.6 L Albumin/Globulin Ratio 0.9 L Meds: Medications Acetaminophen (Acetaminophen 325 Mg Tablet) 650 mg PO Q6HP PRN; Protocol PRN Reason: Per Pain Protocol/Fever > 101 Last Admin: 01/18/21 18:58 Dose: 650 mg Documented by: Albuterol Sulfate (Albuterol Sulfate 200 Puff Inhaler) 1 - 2 puff INH Q4H PRN PRN Reason: Wheezing Last Admin: 01/21/21 21:40 Dose: 1 puff Documented by: Amitriptyline HCl (Amitriptyline 25 Mg Tablet) 50 mg PO HS [facility] Last Admin: 01/21/21 20:13 Dose: 50 mg Documented by: Carisoprodol (Carisoprodol 350 Mg Tablet) 350 mg PO Q6HP PRN PRN Reason: Muscle Spasm Last Admin: 01/22/21 10:52 Dose: 350 mg Documented by: Docusate Sodium (Docusate Sodium 100 Mg Capsule) 100 mg PO BID [facility] Last Admin: 01/22/21 09:24 Dose: 100 mg Documented by: Duloxetine HCl (Duloxetine 30 Mg Capsule) 120 mg PO DAILY [facility] Last Admin: 01/22/21 09:24 Dose: 120 mg Documented by: Enoxaparin Sodium (Enoxaparin 40 Mg/0.4 Ml Syringe) 40 mg SQ DAILY [facility] Last Admin: 01/22/21 09:25 Dose: 40 mg Documented by: Folic Acid (Folic Acid 1 Mg Tablet) 5 mg PO QDAY [facility] Last Admin: 01/22/21 09:24 Dose: 5 mg Documented by: Ceftriaxone Sodium 2 gm/ (Dextrose) 50 mls @ 100 mls/hr IV Q24H [facility] Last Infusion: 01/22/21 10:04 Dose: Infused Documented by: Metronidazole (Flagyl) 500 mg in 100 mls @ 100 mls/hr IV Q8H [facility]; Protocol Last Infusion: 01/22/21 07:29 Dose: Infused Documented by: Omeprazole (Omeprazole 20 Mg Capsule) 20 mg PO QAMAC [facility] Last Admin: 01/22/21 07:17 Dose: 20 mg Documented by: Ondansetron HCl (Ondansetron 4 Mg/2 Ml Vial) 4 mg IV Q6HP PRN PRN Reason: Nausea And Vomiting Pilocarpine Hcl 5 Mg (Tablet) 1 dose PO TID [facility] Last Admin: 01/22/21 09:26 Dose: 1 dose Documented by: Mirabegron 50 Mg Tablet Extended Release 24 Hr 1 dose PO DAILY [facility] Last Admin: 01/22/21 09:26 Dose: Not Given Documented by: Alfuzosin 10 Mg Tablet Extended Release 24 Hr 1 dose PO QDAY [facility] Last Admin: 01/22/21 09:26 Dose: 1 dose Documented by: Potassium/Phosphorus/Sodium (Neutra Phos 1 Packet) 1 packet PO BID [facility] Stop: 01/24/21 08:59 Last Admin: 01/22/21 09:25 Dose: 1 packet Documented by: Senna (Sennosides 1 Tablet) 2 tab PO [facility] Last Admin: 01/21/21 20:24 Dose: Not Given Documented by: Sodium Chloride (0.9 % Sodium Chloride 10 Ml Syringe) 10 ml IV Q8 [facility] Last Admin: 01/22/21 05:59 Dose: 10 ml Documented by: Spironolactone (Spironolactone 25 Mg Tablet) 25 mg PO DAILY [facility] Last Admin: 01/22/21 09:24 Dose: 25 mg Documented by: Temazepam (Temazepam 15 Mg Capsule) 30 mg PO [facility] Last Admin: 01/21/21 20:12 Dose: 30 mg Documented by: Tramadol HCl (Tramadol 50 Mg Tablet) 50 mg PO Q4HP PRN; Protocol PRN Reason: Pain Last Admin: 01/22/21 10:51 Dose: 50 mg Documented by: Vitamin B Complex (Vitamin B Complex 1 Capsule) 1 cap PO DAILY [facility] Last Admin: 01/22/21 09:25 Dose: 1 cap Documented by: Vitamin D (Vitamin D3 1,000 Unit Tablet) 4,000 unit PO DAILY [facility] Last Admin: 01/22/21 09:24 Dose: 4,000 unit Documented by: Zolpidem Tartrate (Zolpidem 5 Mg Tablet) 5 mg PO HSP PRN PRN Reason: Insomnia Last Admin: 01/18/21 21:21 Dose: 5 mg Documented by: A/P Narrative A/P Narrative: Assessment: 66 year old female with a history of rheumatoid arthritis (on tofacitinib), Sjogren syndrome, fibromyalgia, overactive bladder admitted for colitis of the transverse, descending, and sigmoid colon. This is presumably infectious colitis. 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 -Analgesics prn. -Hold Methotrexate for now. -Continue other essential home medications. -DVT ppx: Lovenox SQ -Code status: Full -Disposition: probably SNF Time Spent With Patient Time: Total time spent is greater than 50% in coordination of care (as documented) at patient's floor/unit and/or counseling patient:
--- NOTE | 2021-01-22 11:50 | XRay Report ---
HISTORY: Follow-up colitis FINDINGS: Two supine images were obtained. The fecal impaction and colitis seen on the CT scan performed on 01/16/21 have nearly resolved. The large intestine is no longer distended. The sigmoid colon now measures up to 4.4 cm in transverse diameter and there is some effacement of the mucosal folds due to the inflammatory process. There is no evidence of gas in the wall of the intestine. There are several air-filled nondistended loops of small intestine in the mid abdomen. IMPRESSION: Resolving colitis Interpreted and Authenticated by: Nas Gonzales 01/22/21
[2021-01-22 12:53] LABS: Basophils # (Auto) 0.02 K/mcL (0.00-0.30); Basophils % (Auto) 0.4 % (0.0-2.0); Eosinophils # (Auto) 0.21 K/mcL (0.00-0.70); Eosinophils % (Auto) 4.1 % (0.0-7.0); Hematocrit 26.7 % (34.1-44.9); Hemoglobin 8.9 g/dL (11.2-15.7); Lymphocytes # (Auto) 1.47 K/mcL (1.50-4.80); Lymphocytes % (Auto) 28.4 % (15.5-49.0); Mean Cell Volume 93.4 fL (80.0-100.0); Mean Corpuscular HGB Conc 33.3 g/dL (31.0-36.0); Mean Platelet Volume 9.2 fL (7.4-10.4); Monocytes # (Auto) 0.47 K/mcL (0.10-0.90); Monocytes % (Auto) 9.1 % (1.0-12.0); Platelet Count 250 K/mcL (140-440); RBC 2.86 M/mcL (3.59-5.38); Red Cell Distribution Width 14.7 % (11.5-14.5); WBC 5.2 K/mcL (4.5-11.0)
[2021-01-22] MEDS: TEMAZEPAM 15 MG CAPSULE PO SCH (21:16)
[2021-01-22] MEDS: AMITRIPTYLINE 25 MG TABLET PO SCH (21:17)
[2021-01-22] MEDS: SENNOSIDES 1 TABLET PO SCH (21:18)
[2021-01-23] MEDS: ACETAMINOPHEN 325 MG TABLET PO PRN (02:03)
[2021-01-23] MEDS: traMADol 50 MG TABLET PO PRN ×4 (02:04→22:24)
[2021-01-23] MEDS: 0.9 % SODIUM CHLORIDE 10 ML SYRINGE IV SCH ×3 (05:16→20:57)
[2021-01-23] MEDS: CARISOPRODOL 350 MG TABLET PO PRN ×3 (05:23→18:34)
[2021-01-23 07:14] LABS: ALT/SGPT 18 U/L (<40); AST/SGOT 24 U/L (<32); Albumin 2.6 gm/dL (3.2-5.2); Alkaline Phosphatase 71 U/L (39-117); Bilirubin,Direct < 0.2 mg/dL (0-0.3); Bilirubin,Total 0.2 mg/dL (0.1-1.0); Blood Urea Nitrogen 4 mg/dL (8-23); Carbon Dioxide 25 mmol/L (22-30); Chloride 100 mmol/L (96-108); Globulin 2.6 gm/dL (2.2-3.7); Glomerular Filtration Rate 96; Glucose 99 mg/dL (70-105); Lactate Dehydrogenase 174 U/L (135-225); Phosphorous 3.9 mg/dL (2.5-4.5); Triglycerides 86 mg/dL (<150); Uric Acid 3.1 mg/dL (2.5-8.0)
[2021-01-23 07:17] LABS: Basophils # (Auto) 0.02 K/mcL (0.00-0.30); Basophils % (Auto) 0.5 % (0.0-2.0); Eosinophils # (Auto) 0.14 K/mcL (0.00-0.70); Eosinophils % (Auto) 3.2 % (0.0-7.0); Hematocrit 27.9 % (34.1-44.9); Lymphocytes # (Auto) 1.24 K/mcL (1.50-4.80); Mean Cell Volume 95.5 fL (80.0-100.0); Mean Corpuscular HGB Conc 32.3 g/dL (31.0-36.0); Monocytes # (Auto) 0.43 K/mcL (0.10-0.90); Monocytes % (Auto) 9.8 % (1.0-12.0); Neutrophils % (Auto) 58.3 % (38.0-78.0); Platelet Count 319 K/mcL (140-440); RBC 2.92 M/mcL (3.59-5.38); WBC 4.4 K/mcL (4.5-11.0)
[2021-01-23 08:58] LABS: Lymphocytes % (Auto) 28.2 % (15.5-49.0)
[2021-01-23] MEDS: NEUTRA PHOS 1 PACKET PO SCH ×2 (09:04→20:56)
[2021-01-23] MEDS: FOLIC ACID 1 MG TABLET PO SCH (09:04)
[2021-01-23] MEDS: ENOXAPARIN 40 MG/0.4 ML SYRINGE SQ SCH (09:05)
[2021-01-23] MEDS: VITAMIN B COMPLEX 1 CAPSULE PO SCH (09:05)
[2021-01-23] MEDS: VITAMIN D3 1,000 UNIT TABLET PO SCH (09:05)
[2021-01-23] MEDS: DOCUSATE SODIUM 100 MG CAPSULE PO SCH ×2 (09:05→20:57)
[2021-01-23] MEDS: OMEPRAZOLE 20 MG CAPSULE PO SCH (09:05)
[2021-01-23] MEDS: SPIRONOLACTONE 25 MG TABLET PO SCH (09:05)
[2021-01-23] MEDS: Pilocarpine Hcl 5 mg tablet PO SCH ×3 (09:06→20:57)
[2021-01-23] MEDS: Mirabegron 50 mg tablet extended release 24 hr PO SCH (09:07)
[2021-01-23] MEDS: Alfuzosin 10 mg tablet extended release 24 hr PO SCH (09:07)
[2021-01-23] MEDS: DULoxetine 30 MG CAPSULE PO SCH (09:13)
--- NOTE | 2021-01-23 15:17 | Internal Med Progress Note ---
SUBJECTIVE Subjective Patient information: Note initiated : 01/23/21 at 3:16 pm Service Date, if different from initiated Date: [] Patient: Radha Dawn a 66 y/o F admitted on 01/16/21 for Abd Pain . Chief Complaint: [] Interval history: History of present illness: Ms. Dawn is a 66 year old F history of rheumatoid arthritis, Sjogren's disease, fibromyalgia, overactive bladder, presenting with 2-day history of acute onset abdominal pain with nausea vomiting. Patient was in her usual state of health until yesterday when she developed acute onset bilateral lower quadrant abdominal pain with associated nausea and vomiting. The pain is being described as 10 out of 10, sharp cramping and burning and constant without radiations. No associated alleviating or exacerbating factors. Patient is also experiencing nausea and vomiting. She also have chronic fluctuating constipation and diarrhea. She is also committing of subjective fever and shaking chills. She can barely tolerate any oral intakes and all we have a few bites of Georgian tips and started since yesterday. She denied sick contact recent travel or introduction of new foods. Vital signs at ED presentation largely unremarkable and no fevers. Labs significant for leukocytosis with WBC 14.8. CT of the abdomen pelvis showing signs of diffuse colitis involving both ascending transverse and descending colons. 01/17: Fever with Tmax 38.2. WBC 14.8--> 6.3 this morning. Blood cultures no growth to date. c/o severe constant sharp LLQ and RLQ abdominal pain. c/o fever. c/o nausea and vomiting. c/o alternating constipation and diarrhea. 01/18: Afebrile overnight. WBC normal level this morning. Blood cultures no growth to date. c/o severe constant sharp LLQ > RLQ abdominal pain. Also c/o nausea vomiting diarrhea and constipation alternating. 01/19: Afebrile overnight. WBC normal level this morning. Blood cultures no growth to date. c/o severe constant sharp LLQ > RLQ abdominal pain. Denies nausea vomiting diarrhea or constipation. Able to tolerate couple bites of oatmeal. 01/20: Feels about the same as yesterday, having bowel movements and tolerating some oral intake, appears volume overloaded-discontinued IV fluid. 01/21: Volume status improved without intervention, making a lot of urine. Abdominal pain stable, improving appetite. Continues on IV antibiotics but could probably transition to oral soon. Anticipating discharge to SNF soon. 01/22: Discontinue antibiotics, discontinue morphine IV prn, ongoing discharge planning probably to SNF. 01/23: High grade temperatures but no fevers, the patient feels her abdominal pain has improved overall, xray abdomen shows resolving colitis. Will check procalcitonin and CRP, consider extending antibiotic course if they are significantly elevated. Review of Systems: no fevers, stable abdominal pain Physical Exam Head: Atraumatic, normal inspection. Eyes: normal appearance, no scleral icterus. Neck: full ROM Respiratory: no respiratory distress. Cardiovascular: normal rate and rhythm, S1, S2. GI/Abdominal: soft,mild tenderness in left lower quadrant, no guarding Extremities: full range of motion, nontender. Neurological: CN II-XII intact, intact motor, intact sensation. Psychiatric: normal mood. Skin: warm, normal color Constitutional Vitals: Vital Signs Temp Pulse Resp BP Pulse Ox 98.7 F 89 22 142/84 95 01/23/21 12:00 01/23/21 12:00 01/23/21 12:00 01/23/21 12:00 01/23/21 12:00 Period Temp Pulse Resp BP Sys/Mcgraw Pulse Ox Last 24 Hr 97.9 F-99.7 F 88-100 20-22 114-149/65-87 93-95 Intake and Output 01/23/21 01/23/21 01/23/21 05:59 13:59 21:59 Intake Total 480 1040 1000 Output Total 1700 650 Balance -9549 004 2168 Intake & Output: Intake & Output 01/23/21 01/23/21 01/23/21 05:59 13:59 21:59 Intake Total 480 1040 1000 Output Total 1700 650 Balance -7709 695 4460 Intake: Oral 480 1040 1000 Output: Void Amount 1700 650 Other: Meal Breakfast Lunch Percent of Meal Consumed 50% 75% Feeding Ability Independent Urine Appearance Clear Clear Urine Color Bright Yellow Bright Yellow Urine Odor Normal Normal Stool Size Large Moderate Stool Color Brown Brown Stool Consistency Soft Formed Formed # Bowel Movements 1 OBJ DATA Labs CBC & Chem 7: 01/23/21 05:18 01/23/21 05:18 Labs: Abnormal Lab Results 01/23/21 01/23/21 01/22/21 05:18 05:18 12:03 WBC 4.4 L RBC 2.92 L 2.86 L Hgb 9.0 L 8.9 L Hct 27.9 L 26.7 L RDW 15.0 H 14.7 H Lymph # (Auto) 1.24 L 1.47 L Sodium BUN 4 L Creatinine Calcium 8.0 L Phosphorus Total Protein 5.2 L Albumin 2.6 L Albumin/Globulin Ratio 01/22/21 01/22/21 01/21/21 05:28 05:28 05:13 WBC RBC 2.77 L Hgb 8.9 L Hct 26.4 L RDW 14.9 H Lymph # (Auto) 1.36 L Sodium 132 L BUN 5 L 3 L Creatinine 0.4 L 0.5 L Calcium 8.0 L 8.0 L Phosphorus 1.5 L Total Protein 5.2 L 5.1 L Albumin 2.4 L 2.6 L Albumin/Globulin Ratio 0.9 L Meds: Medications Acetaminophen (Acetaminophen 325 Mg Tablet) 650 mg PO Q6HP PRN; Protocol PRN Reason: Per Pain Protocol/Fever > 101 Last Admin: 01/23/21 02:03 Dose: 650 mg Documented by: Albuterol Sulfate (Albuterol Sulfate 200 Puff Inhaler) 1 - 2 puff INH Q4H PRN PRN Reason: Wheezing Last Admin: 01/21/21 21:40 Dose: 1 puff Documented by: Amitriptyline HCl (Amitriptyline 25 Mg Tablet) 50 mg PO [facility] Last Admin: 01/22/21 21:17 Dose: 50 mg Documented by: Carisoprodol (Carisoprodol 350 Mg Tablet) 350 mg PO Q6HP PRN PRN Reason: Muscle Spasm Last Admin: 01/23/21 11:33 Dose: 350 mg Documented by: Docusate Sodium (Docusate Sodium 100 Mg Capsule) 100 mg PO BID [facility] Last Admin: 01/23/21 09:05 Dose: 100 mg Documented by: Duloxetine HCl (Duloxetine 30 Mg Capsule) 120 mg PO DAILY [facility] Last Admin: 01/23/21 09:13 Dose: 120 mg Documented by: Enoxaparin Sodium (Enoxaparin 40 Mg/0.4 Ml Syringe) 40 mg SQ DAILY [facility] Last Admin: 01/23/21 09:05 Dose: 40 mg Documented by: Folic Acid (Folic Acid 1 Mg Tablet) 5 mg PO QDAY [facility] Last Admin: 01/23/21 09:04 Dose: 5 mg Documented by: Omeprazole (Omeprazole 20 Mg Capsule) 20 mg PO QAMAC [facility] Last Admin: 01/23/21 09:05 Dose: 20 mg Documented by: Ondansetron HCl (Ondansetron 4 Mg/2 Ml Vial) 4 mg IV Q6HP PRN PRN Reason: Nausea And Vomiting Pilocarpine Hcl 5 Mg (Tablet) 1 dose PO TID [facility] Last Admin: 01/23/21 14:56 Dose: 1 dose Documented by: Mirabegron 50 Mg Tablet Extended Release 24 Hr 1 dose PO DAILY [facility] Last Admin: 01/23/21 09:07 Dose: Not Given Documented by: Alfuzosin 10 Mg Tablet Extended Release 24 Hr 1 dose PO QDAY [facility] Last Admin: 01/23/21 09:07 Dose: 1 dose Documented by: Potassium/Phosphorus/Sodium (Neutra Phos 1 Packet) 1 packet PO BID [facility] Stop: 01/24/21 08:59 Last Admin: 01/23/21 09:04 Dose: 1 packet Documented by: Senna (Sennosides 1 Tablet) 2 tab PO [facility] Last Admin: 01/22/21 21:18 Dose: Not Given Documented by: Sodium Chloride (0.9 % Sodium Chloride 10 Ml Syringe) 10 ml IV Q8 [facility] Last Admin: 01/23/21 14:55 Dose: 10 ml Documented by: Spironolactone (Spironolactone 25 Mg Tablet) 25 mg PO DAILY [facility] Last Admin: 01/23/21 09:05 Dose: 25 mg Documented by: Temazepam (Temazepam 15 Mg Capsule) 30 mg PO HS [facility] Last Admin: 01/22/21 21:16 Dose: 30 mg Documented by: Tramadol HCl (Tramadol 50 Mg Tablet) 50 mg PO Q4HP PRN; Protocol PRN Reason: Pain Last Admin: 01/23/21 14:55 Dose: 50 mg Documented by: Vitamin B Complex (Vitamin B Complex 1 Capsule) 1 cap PO DAILY [facility] Last Admin: 01/23/21 09:05 Dose: 1 cap Documented by: Vitamin D (Vitamin D3 1,000 Unit Tablet) 4,000 unit PO DAILY [facility] Last Admin: 01/23/21 09:05 Dose: 4,000 unit Documented by: Zolpidem Tartrate (Zolpidem 5 Mg Tablet) 5 mg PO HSP PRN PRN Reason: Insomnia Last Admin: 01/18/21 21:21 Dose: 5 mg Documented by: A/P Narrative A/P Narrative: Assessment: 66 year old female with a history of rheumatoid arthritis (on tofacitinib), Sjogren syndrome, fibromyalgia, overactive bladder admitted for colitis of the transverse, descending, and sigmoid colon. This is presumably infectious colitis. #Resolving colitis of transverse, descending, and sigmoid colon -presumably infectious colitis #Rheumatoid arthritis #Sjogren syndrome #Fibromyalgia #Anemia Plan -Procalcitonin and CRP, monitor for fevers. -Analgesics prn. -Hold Methotrexate for now. -Continue other essential home medications. -DVT ppx: Lovenox SQ -Code status: Full -Disposition: probably SNF Time Spent With Patient Time: Total time spent is greater than 50% in coordination of care (as documented) at patient's floor/unit and/or counseling patient:
[2021-01-23] MEDS: SENNOSIDES 1 TABLET PO SCH (20:57)
[2021-01-23] MEDS: TEMAZEPAM 15 MG CAPSULE PO SCH (20:57)
[2021-01-23] MEDS: AMITRIPTYLINE 25 MG TABLET PO SCH (20:57)
[2021-01-24] MEDS: FOLIC ACID 1 MG TABLET PO SCH (07:10)
[2021-01-24] MEDS: ENOXAPARIN 40 MG/0.4 ML SYRINGE SQ SCH (07:10)
[2021-01-24] MEDS: 0.9 % SODIUM CHLORIDE 10 ML SYRINGE IV SCH ×2 (07:10→12:26)
[2021-01-24] MEDS: SPIRONOLACTONE 25 MG TABLET PO SCH (07:11)
[2021-01-24] MEDS: VITAMIN B COMPLEX 1 CAPSULE PO SCH (07:11)
[2021-01-24] MEDS: OMEPRAZOLE 20 MG CAPSULE PO SCH (07:11)
[2021-01-24] MEDS: DULoxetine 30 MG CAPSULE PO SCH (07:11)
[2021-01-24] MEDS: DOCUSATE SODIUM 100 MG CAPSULE PO SCH (07:11)
[2021-01-24] MEDS: VITAMIN D3 1,000 UNIT TABLET PO SCH (07:11)
[2021-01-24] MEDS: CARISOPRODOL 350 MG TABLET PO PRN (07:11)
[2021-01-24] MEDS: Mirabegron 50 mg tablet extended release 24 hr PO SCH (07:12)
[2021-01-24] MEDS: Alfuzosin 10 mg tablet extended release 24 hr PO SCH (07:12)
[2021-01-24] MEDS: Pilocarpine Hcl 5 mg tablet PO SCH (07:12)
[2021-01-24] MEDS: traMADol 50 MG TABLET PO PRN (10:08)
--- NOTE | 2021-01-24 11:15 | Discharge Summary ---
Discharge Provider Provider Patient information: Note initiated : 01/24/21 at 11:12 am Service Date, if different from initiated Date: [] Patient: Radha Dawn 66 y/o F admitted on 01/16/21 for Abd Pain . Chief Complaint: [] Date of admission: 01/16/21 09:00 Discharge date: 01/24/21 Primary care physician: Lenard Galvan DO Consults: 01/16/21 Consult to Physician [CONS] Stat Comment: colitis Consulting Provider: Dudley Ace Reason For Exam: Physician to Consult Discharge Meds Discharge Medications Home Medications cane 05/17/16 [History Confirmed 02/01/20 Last Taken Unknown] carisoprodol 350 mg tablet 350 mg PO Q8HP PRN tab 05/17/16 [History Confirmed 01/19/21 Last Taken 01/15/21] cushion 05/17/16 [History Confirmed 02/01/20 Last Taken Unknown] omeprazole 20 mg capsule,delayed release 20 mg PO QDAY cap 05/17/16 [History Confirmed 01/16/21 Last Taken 01/15/21] pilocarpine HCl 5 mg tablet 5 mg PO TID 05/17/16 [History Confirmed 01/16/21 Last Taken 01/15/21] temazepam 15 mg capsule 30 mg PO HSP PRN cap 05/17/16 [History Confirmed 01/19/21 Last Taken Unknown] duloxetine 60 mg PO BID cap 05/29/16 [History Confirmed 01/19/21 Last Taken 01/15/21] folic acid 1 mg tablet 5 mg PO QDAY tab 07/02/19 [History Confirmed 01/16/21 Last Taken 01/15/21] polyethylene glycol 3350 17 gram/dose oral powder 17 g PO ONCE PRN 07/02/19 [History Confirmed 01/16/21 Last Taken 01/12/21] amitriptyline 50 mg tablet 50 mg PO QHS 07/13/19 [History Confirmed 01/19/21 Last Taken 01/15/21] spironolactone 50 mg tablet 50 mg PO QAM tab 07/13/19 [History Confirmed 01/19/21 Last Taken Unknown] cholecalciferol (vitamin D3) 50 mcg (2,000 unit) tablet 100 mcg PO QDAY tab 02/01/20 [History Confirmed 01/16/21 Last Taken Unknown] Toviaz 4 mg PO DAILY 01/19/21 [History Confirmed 01/19/21 Last Taken Unknown] albuterol sulfate 1 - 2 puff INHALATION Q4HP PRN 01/19/21 [History Confirmed 01/19/21 Last Taken Unknown] tramadol 25 - 50 mg PO Q6HP PRN MDD 8 01/19/21 [History Confirmed 01/19/21 Last Taken Unknown] methotrexate sodium (PF) 0.8 mg IM WEEKLY 01/20/21 [History Confirmed 01/20/21 Last Taken Unknown] alfuzosin 10 mg tablet,extended release 24 hr 10 mg PO QDAY #30 tab 01/23/21 [Rx Confirmed 01/24/21 Last Taken 01/24/21] COURSE Hospital Course Hospital course: Ms. Dawn is a 66 year old F history of rheumatoid arthri tis, Sjogren's disease, fibromyalgia, overactive bladder, presenting with 2-day history of acute onset abdominal pain with nausea vomiting. Patient was in her usual state of health until yesterday when she developed acute onset bilateral lower quadrant abdominal pain with associated nausea and vomiting. The pain is being described as 10 out of 10, sharp cramping and burning and constant without radiations. No associated alleviating or exacerbating factors. Patient is also experiencing nausea and vomiting. She also have chronic fluctuating constipation and diarrhea. She is also committing of subjective fever and shaking chills. She can barely tolerate any oral intakes and all we have a few bites of Hebrew tips and started since yesterday. She denied sick contact recent travel or introduction of new foods. Vital signs at ED presentation largely unremarkable and no fevers. Labs significant for leukocytosis with WBC 14.8. CT of the abdomen pelvis showing signs of diffuse colitis involving both ascending transverse and descending colons. 01/17: Fever with Tmax 38.2. WBC 14.8--> 6.3 this morning. Blood cultures no growth to date. c/o severe constant sharp LLQ and RLQ abdominal pain. c/o fever. c/o nausea and vomiting. c/o alternating constipation and diarrhea. 01/18: Afebrile overnight. WBC normal level this morning. Blood cultures no growth to date. c/o severe constant sharp LLQ > RLQ abdominal pain. Also c/o nausea vomiting diarrhea and constipation alternating. 01/19: Afebrile overnight. WBC normal level this morning. Blood cultures no growth to date. c/o severe constant sharp LLQ > RLQ abdominal pain. Denies nausea vomiting diarrhea or constipation. Able to tolerate couple bites of oatmeal. 01/20: Feels about the same as yesterday, having bowel movements and tolerating some oral intake, appears volume overloaded-discontinued IV fluid. 01/21: Volume status improved without intervention, making a lot of urine. Abdominal pain stable, improving appetite. Continues on IV antibiotics but could probably transition to oral soon. Anticipating discharge to SNF soon. 01/22: Discontinue antibiotics, discontinue morphine IV prn, ongoing discharge planning probably to SNF. 01/23: High grade temperatures but no fevers, the patient feels her abdominal pain has improved overall, xray abdomen shows resolving colitis. Will check procalcitonin and CRP, consider extending antibiotic course if they are significantly elevated. 01/24: Afebrile, repeat procalcitonin has decreased to .15, it was 2.46 on the day of admission. The patient feels much better overall. Discharged to a alf facility. Post hospital follow up; -PT and OT at SNF -Hold of on resuming weekly methotrexate IV infusion for one more week. Physical Exam Head: Atraumatic, normal inspection. Eyes: normal appearance, no scleral icterus. Neck: full ROM Respiratory: no respiratory distress. Cardiovascular: normal rate and rhythm, S1, S2. GI/Abdominal: soft, no tenderness, no guarding Extremities: full range of motion, nontender. Neurological: CN II-XII intact, intact motor, intact sensation. Psychiatric: normal mood. Skin: warm, normal color Discharge diagnosis: Infectious colitis Secondary discharge diagnosis: #Rheumatoid arthritis #Sjogren syndrome #Fibromyalgia #Anemia Time Spent with Patient Time attestation: Total time spent providing and/or coordinating discharge services: EXAM Constitutional Vitals: Temp Pulse Resp BP Pulse Ox 97.2 F 98 H 20 113/50 93 01/24/21 04:00 01/24/21 04:00 01/24/21 04:00 01/24/21 07:55 01/24/21 04:00 Discharge Data Data Completed and Pending Labs on day of discharge: Labs from last 24 hours 01/23/21 01/23/21 15:53 15:33 C-Reactive Protein 2.50 H Procalcitonin 0.15 H Discharge Plan Patient/Caregiver Discharge Instructions Activity: increase activity as tolerated Diet: Regular Diet Instructions: Colitis (ED) Prescriptions: Continued alfuzosin 10 mg tablet extended release 24 hr 10 mg PO QDAY Qty: 30 RF: 3 temazepam 15 mg capsule 30 mg PO HSP PRN (Reason: Sleep) RF: 0 carisoprodol [Soma] 350 mg tablet 350 mg PO Q8HP PRN (Reason: Spasms) RF: 0 omeprazole 20 mg capsule,delayed release(DR/EC) 20 mg PO QDAY RF: 0 pilocarpine HCl 5 mg tablet 5 mg PO TID RF: 0 (DME) cushion misc See Dose Instructions .ROUTE .MEDSUPPLY RF: 0 (DME) cane device See Dose Instructions .ROUTE .MEDSUPPLY RF: 0 duloxetine 60 mg capsule,delayed release(DR/EC) 60 mg PO BID RF: 0 folic acid 1 mg tablet 5 mg PO QDAY RF: 0 polyethylene glycol 3350 [Miralax] 17 gram/dose powder 17 g PO ONCE PRN (Reason: Constipation) RF: 0 spironolactone 50 mg tablet 50 mg PO QAM RF: 0 amitriptyline 50 mg tablet 50 mg tablet 50 mg PO QHS RF: 0 cholecalciferol (vitamin D3) 50 mcg (2,000 unit) tablet 100 mcg PO QDAY RF: 0 Toviaz 4 mg tablet extended release 24 hr 4 mg PO DAILY RF: 0 tramadol 50 mg tablet 25 - 50 mg PO Q6HP MDD 8 PRN (Reason: Pain) RF: 0 albuterol sulfate 90 mcg/actuation Hfa Aerosol Inhaler 1 - 2 puff INHALATION Q4HP PRN (Reason: Shortness Of Breath) RF: 0 methotrexate sodium (PF) 25 mg/mL solution 0.8 mg IM WEEKLY RF: 0 Other Ambulatory Orders: OT Discharge Order (Routine) Location: None Selected Ordered By: Dipak Martinez Physical Therapy at Discharge - General (Routine) Location: None Selected Ordered By: Dipak Martinez Follow Up Plan Follow up with: Lenard Galvan DO [Primary Care Provider] - Patient Disposition: Xfer SNF Prognosis: Fair Rehab Potential: Fair I certify that the patient requires SNF services: Yes Overall status at discharge: patient is progressing back to baseline Discharge Orders: Discharge Order (Routine); Ordered 01/24/21 Ordered By: Dipak Martinez
== END 2021-01-24 12:55 | DRG 392 ==
LOC: ED 01:17 → MEDSUR 09:00
PROVIDERS: ADMIT Internal Medicine; ATTEND Internal Medicine

== ENCOUNTER 2022-11-18 09:02 | Observation (INO) ==
[2022-11-18] MEDS ORDERED: IOPAMIDOL 100 ML BOTTLE IV ONE (09:03)
--- NOTE | 2022-11-18 09:08 | Emergency Department Note ---
HPI General Chief complaint: Fall Stated complaint: frequent falls, toe pain Time Seen by Provider: 11/18/22 09:08 Mode of arrival: EMS History of Present Illness HPI Narrative: Narrative: Patient is a 67-year-old female who presents to the emergency department due to falls and new pain. She states that she has had numerous falls over the weekend. She states that she now has right fourth toe pain, left-sided rib pain, left shoulder pain, and headache. She states that she has worsening pain with movement. She also endorses shortness of breath. She denies any other symptoms or concerns at this time. Related Data Home Medications Medication Instructions Recorded Confirmed cane 05/17/16 06/18/21 cushion 05/17/16 06/18/21 omeprazole 20 mg capsule,delayed 20 mg PO QDAY 05/17/16 11/18/22 release temazepam 15 mg capsule 30 mg PO HSP PRN Sleep 05/17/16 11/18/22 duloxetine 60 mg capsule,delayed 60 mg PO BID 05/29/16 11/18/22 release folic acid 1 mg tablet 5 mg PO QDAY 07/02/19 11/18/22 polyethylene glycol 3350 17 17 g PO ONCE PRN Constipation 07/02/19 11/18/22 gram/dose oral powder (Miralax) amitriptyline 50 mg tablet 50 mg PO QHS 07/13/19 11/18/22 cholecalciferol (vitamin D3) 50 100 mcg PO QDAY 02/01/20 11/18/22 mcg (2,000 unit) tablet albuterol sulfate 90 mcg/actuation 1 - 2 puff inhalation Q4HP PRN 01/19/21 11/18/22 aerosol inhaler Shortness Of Breath tramadol 50 mg tablet 100 mg PO Q4 PRN Pain 01/19/21 11/18/22 Emetrol 1 tab PO Q6 PRN Nausea 11/18/22 11/18/22 ascorbic acid (vitamin C) 1,000 mg PO QAM 11/18/22 11/18/22 cyclobenzaprine 10 mg tablet 10 mg PO TID 11/18/22 11/18/22 fludrocortisone 0.1 mg tablet 0.1 mg PO QDAY 11/18/22 11/18/22 morphine 15 mg tablet,extended 15 mg PO QAM 11/18/22 11/18/22 release morphine 30 mg tablet,extended 30 mg PO HS 11/18/22 11/18/22 release Allergies Allergy/AdvReac Type Severity Reaction Status Date / Time etanercept [From ENBREL] Allergy Intermediate SWELLING Verified 11/18/22 09:33 pregabalin [From LYRICA] Allergy Intermediate SWELLING Verified 11/18/22 09:33 Sulfa (Sulfonamide Allergy Mild Hives Verified 11/18/22 09:33 Antibiotics) infliximab [From Remicade] Allergy Unknown Unknown Verified 11/18/22 09:33 mirabegron [From Myrbetriq] Allergy Unknown Unknown Verified 11/18/22 09:33 tamsulosin Allergy Unknown Unknown Verified 11/18/22 09:33 ciprofloxacin [From Cipro] AdvReac Mild Nausea Verified 11/18/22 09:33 codeine AdvReac Mild NAUSEA Verified 11/18/22 09:33 gabapentin [GABAPENTIN] AdvReac Mild Nausea Verified 11/18/22 09:33 ketorolac [From Toradol] AdvReac Mild Nausea Verified 11/18/22 09:33 Review of Systems ROS ROS Narrative: Narrative: Constitutional: Denies fever or weakness Eyes: Denies vision change ENT ED: Denies throat pain, hearing loss or rhinorrhea Cardiovascular: Reports chest pain; Denies dyspnea on exertion, orthopnea or edema Respiratory: Reports shortness of breath; Denies cough Gastrointestinal: Denies abdominal pain, nausea, vomiting, diarrhea, constipation, hematochezia or melena Musculoskeletal: Reports back pain; Denies myalgia Integumentary: Denies rash or lesions Neurological: Reports headache; Denies weakness, numbness, confusion, abnormal gait or dizziness [facility] Narrative Patient History Narrative: Narrative: Medical/Surgical/Family History All Active Problems (Updated 11/19/22 @ 14:27 by Lazarus Perkins MD) Multiple fractures of ribs of left side (Acute) Fracture, phalanx, foot (Acute) Fracture of left distal radius (Chronic) Urinary tract infection (Chronic) Sicca syndrome, Sjogren's (Chronic) Rheumatoid arthritis, erosive, seronegative (Chronic) Aftercare (Chronic) Peripheral neuropathy (Chronic) Fibromyalgia (Chronic) Fatigue (Chronic) Dysuria (Chronic) Calcium metabolism disorder (Chronic) Preventative health care (Chronic) Acute lumbar back pain (Chronic) Sciatica (Chronic) Hyperlipidemia (Chronic) Depression (Chronic) Chronic abdominal pain (Chronic) Urinary incontinence (Chronic) Urinary frequency (Chronic) Osteoporosis (Chronic) Edema (Chronic) Schatzki's ring (Chronic) Vitamin D deficiency (Chronic) Tubulovillous adenoma of colon (Chronic) Vaginal discharge (Chronic) Incontinence (Chronic) Hematuria (Chronic) Urinary urgency (Chronic) 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) Drug therapy (Chronic) Pain (Chronic) Fracture of wrist (Chronic) Back pain (Chronic) Joint swelling (Chronic) Anxiety (Chronic) History of mammogram (Chronic 09/24/10) History of bone scan (Chronic 08/15/10) Muscle cramps (Chronic) Muscle weakness (Chronic) Stiffness in joint (Chronic) Arthritis (Chronic) Rheumatoid arthritis (Chronic) Polyarthralgia (Chronic) Sicca syndrome (Chronic) Osteoarthritis (Chronic) Strain of lumbar region (Acute) Albuminuria (Chronic) Incomplete bladder emptying (Chronic) Lower urinary tract symptoms (Chronic) Recurrent UTI (Chronic) Steroid long-term use (Chronic) Menopausal state (Chronic) Closed left ankle fracture (Acute) Ankle dislocation (Acute) Hypertension (Chronic) Bladder pain (Chronic) OAB (overactive bladder) (Acute) Colitis (Acute) Abdominal pain (Acute) Anemia, normocytic normochromic (Acute) Hyponatremia (Acute) Hypokalemia (Acute) Bladder pain (Acute) Urethral pain (Acute) Interstitial cystitis (Acute) Urge urinary incontinence (Acute) Medical History (Updated 11/19/22 @ 14:27 by Lazarus Perkins MD) Absence of cervix Surgical Absence of uterus Surgical Acute lumbar back pain Aftercare Long-term use, medications, NEC Albuminuria Anxiety Arthritis Back pain Calcium metabolism disorder Chronic abdominal pain Depression Drug therapy Dysuria Edema Fatigue Fibromyalgia Fracture of left distal radius Fracture of wrist Left-Colles fracture Hematuria History of bone scan (08/15/10) History of mammogram (09/24/10) Hyperlipidemia Incomplete bladder emptying Incontinence Joint swelling Lower urinary tract symptoms Menopausal state Muscle cramps Muscle weakness Osteoarthritis Osteoporosis Pain Peripheral neuropathy Polyarthralgia Preventative health care Recurrent UTI Rheumatoid arthritis Rheumatoid arthritis, erosive, seronegative Schatzki's ring Sciatica Sicca syndrome Sicca syndrome, Sjogren's Steroid long-term use Stiffness in joint Tubulovillous adenoma of colon Urinary frequency Urinary incontinence Urinary tract infection Urinary urgency Vaginal discharge Vitamin D deficiency Surgical History (Updated 10/31/22 @ 08:39 by Lily Celaya) History of appendectomy History of bunionectomy of left great toe (~1994) History of colonoscopy (~10/2010) History of esophagogastroduodenoscopy (EGD) (~10/2010) History of laparoscopy [id number]; Due to endometriosis 1991 History of laparotomy -1996 History of open reduction and internal fixation (ORIF) procedure (~2014) Left wrist History of open reduction and internal fixation (ORIF) procedure (10/20/19) Left Ankle History of tonsillectomy and adenoidectomy (~1964) History of tubal ligation Status post JUN-BSO Due to endometriosis-1991 Family History (Updated 10/31/22 @ 08:44 by Lily Celaya) Mother FHx: allergies Skin cancer Osteoporosis Hip fracture Father , 84 Parkinson's disease Brother Skin cancer Son Migraines Marijuana use Grandfather Leukemia Colon cancer Heart disease High cholesterol Osteoporosis Cancer Maternal Mental disorder Maternal Grandmother Arthritis Maternal Cancer Maternal Heart disease Maternal Family/Other Rheumatoid arthritis Stroke Kidney disease Aunt Cancer Arthritis Social History Smoking Status: Current every day smoker Alcohol Intake Frequency: holiday/special occasion only Substance Use: does not use Exam Narrative Narrative: Narrative: General General appearance: Present alert and in no apparent distress; Absent anxious, appears intoxicated or sleepy Head Head: Present atraumatic and normocephalic Eye Eye: Present PERRL and EOMI; Absent scleral icterus or nystagmus ENT ENT: Present mucous membranes moist; Absent nasal congestion Neck Neck: Present full ROM and trachea midline; Absent tenderness Chest Chest: Present normal inspection, symmetric chest wall rise and tenderness Respiratory Respiratory: Present normal lung sounds bilaterally; Absent respiratory distress, rales/crackles, wheezes, stridor or accessory muscle use Cardiovascular Cardiovascular: Present regular rate, normal rhythm and normal heart sounds Adbominal Abdominal: Present soft and normal bowel sounds; Absent distention, tenderness, guarding, rebound or rigidity Extremities Extremities: Present normal inspection, full ROM and tenderness (Left shoulder) Back Back: Present normal inspection, full ROM and tenderness Neurological Neurological: Present alert, oriented X3 and CN II-XII intact; Absent motor sensory deficit Psychiatric Psychiatric: Present normal affect and normal mood Skin Skin: Present warm (WNL), dry and normal color Course Vital Signs Vital signs: Vital Signs Temperature 98.8 F 11/18/22 09:07 Pulse Rate 104 H 11/18/22 09:07 Respiratory Rate 20 11/18/22 09:07 Blood Pressure 150/92 11/18/22 09:07 Pulse Oximetry (%) 97 11/18/22 09:07 Oxygen Delivery Method Room Air 11/18/22 09:07 Temperature 98.2 F 11/19/22 12:00 Pulse Rate 93 H 11/19/22 12:00 Respiratory Rate 16 11/19/22 12:00 Blood Pressure 117/61 11/19/22 12:00 Pulse Oximetry (%) 92 11/19/22 12:00 Oxygen Delivery Method Room Air 11/19/22 12:00 MDM MDM Narrative Medical decision making narrative: Narrative: Patient is a 67-year-old female who presents to the emergency department due to falls. Differential diagnoses include left shoulder injury, intracranial i njury, rib fracture, spinal injury, and right fourth toe injury. Patient is found to have 3 consecutive rib fractures on the left and a right fourth toe fracture. Patient is also found to have atelectasis on the left on CT scan. Because of patient's significant pain she has received multiple doses of pain medication. For this reason because of the atelectasis and difficulty breathing I have called and spoken with Dr. Casiano. Initially he was concerned about taking patient and felt like she may be appropriate for placement in a facility, but he did see patient, and then agreed to admit patient. Lab Data 11/19/22 05:40 11/19/22 05:40 Labs: Lab Results 11/18/22 11/18/22 11/18/22 Range/Units 09:25 09:25 09:25 WBC 14.8 H (4.5-11.0) K/mcL RBC 4.42 (3.59-5.38) M/mcL Hgb 12.6 (11.2-15.7) g/dL Hct 38.2 (34.1-44.9) % POC Hct 40.0 (36-48) MCV 86.4 (80.0-100.0) fL MCH 28.5 (26.0-34.0) pg MCHC 33.0 (31.0-36.0) g/dL RDW 14.2 (11.5-14.5) % Plt Count 297 (140-440) K/mcL MPV 8.7 L (8.8-12.5) fL Immature Gran % (Auto) 0.5 (0.0-0.5) % Neut % (Auto) 68.9 (38.0-78.0) % Lymph % (Auto) 24.1 (15.5-49.0) % [place]once % (Auto) 5.6 (1.0-12.0) % Eos % (Auto) 0.6 (0.0-7.0) % Baso % (Auto) 0.3 (0.0-2.0) % Lymph # (Auto) 3.56 (1.50-4.80) K/mcL Ponce # (Auto) 0.83 (0.10-0.90) K/mcL Eos # (Auto) 0.09 (0.00-0.70) K/mcL Baso # (Auto) 0.04 (0.00-0.30) K/mcL Immature Gran # 0.07 H (0.00-0.05) K/mcl Absolute Neutrophils 10.18 H (1.80-8.00) K/mcL D-Dimer 1.49 H (0.27-0.50) ug/mL POC Sodium 132 L (133-145) POC Potassium 3.5 (3.3-5.1) POC Chloride 100 (96-108) POC Total CO2 20.0 L (22-30) POC Anion Gap 17.0 H (8.0-16.0) POC BUN 12 (6-20) POC Creatinine 1.0 (0.6-1.2) POC Glucose 118 H (70-105) POC WB Ioniz Calcium 1.12 L (1.16-1.32) NT-Pro-B Natriuret Pep (<125.0) pg/mL Urine Color Urine Appearance (Clear) Urine pH (5.0-9.0) Ur Specific [place] (1.000-1.035) Urine Protein (Negative) mg/dL Urine Glucose (UA) (Negative) mg/dL Urine Ketones (Negative) mg/dL Urine Occult Blood (Negative) mg/dL Urine Nitrate (Negative) Urine Bilirubin (Negative) mg/dL Urine Urobilinogen mg/dL Ur Leukocyte Esterase (Negative) /uL Urine RBC (0-3) /hpf Urine WBC (0-4) /hpf Ur Squamous Epith Cells (0-4) /hpf Urine Bacteria (0) /hpf Urine Mucus (None) /hpf Ur Culture Indicated? POC Troponin I (0.00-0.08) 11/18/22 11/18/22 11/18/22 Range/Units 09:25 09:29 15:48 WBC (4.5-11.0) K/mcL RBC (3.59-5.38) M/mcL Hgb (11.2-15.7) g/dL Hct (34.1-44.9) % POC Hct (36-48) MCV (80.0-100.0) fL MCH (26.0-34.0) pg MCHC (31.0-36.0) g/dL RDW (11.5-14.5) % Plt Count (140-440) K/mcL MPV (8.8-12.5) fL Immature Gran % (Auto) (0.0-0.5) % Neut % (Auto) (38.0-78.0) % Lymph % (Auto) (15.5-49.0) % Ponce % (Auto) (1.0-12.0) % Eos % (Auto) (0.0-7.0) % Baso % (Auto) (0.0-2.0) % Lymph # (Auto) (1.50-4.80) K/mcL Ponce # (Auto) (0.10-0.90) K/mcL Eos # (Auto) (0.00-0.70) K/mcL Baso # (Auto) (0.00-0.30) K/mcL Immature Gran # (0.00-0.05) K/mcl Absolute Neutrophils (1.80-8.00) K/mcL D-Dimer (0.27-0.50) ug/mL POC Sodium (133-145) POC Potassium (3.3-5.1) POC Chloride (96-108) POC Total CO2 (22-30) POC Anion Gap (8.0-16.0) POC BUN (6-20) POC Creatinine (0.6-1.2) POC Glucose (70-105) POC WB Ioniz Calcium (1.16-1.32) NT-Pro-B Natriuret Pep 23.6 (<125.0) pg/mL Urine Color Yellow Urine Appearance Hazy A (Clear) Urine pH 5.0 (5.0-9.0) Ur Specific [place] 1.018 (1.000-1.035) Urine Protein Negative (Negative) mg/dL Urine Glucose (UA) Negative (Negative) mg/dL Urine Ketones 5 A (Negative) mg/dL Urine Occult Blood Negative (Negative) mg/dL Urine Nitrate Pos A (Negative) Urine Bilirubin Negative (Negative) mg/dL Urine Urobilinogen Negative mg/dL Ur Leukocyte Esterase 75 A (Negative) /uL Urine RBC 0 (0-3) /hpf Urine WBC 15 H (0-4) /hpf Ur Squamous Epith Cells 0 (0-4) /hpf Urine Bacteria None (0) /hpf Urine Mucus Few A (None) /hpf Ur Culture Indicated? yes POC Troponin I < 0.02 (0.00-0.08) Discharge Plan Patient/Caregiver Discharge Instructions Pt seen by THIRD RIGGER/PA only: No Clinical Impression: Multiple fractures of ribs of left side, Fracture, phalanx, foot Activity: increase activity as tolerated Patient Disposition: Xfer As Inpt ([facility]) Condition: Fair Discharge Date/Time: 11/18/22 16:05
[2022-11-18] MEDS ORDERED: 0.9 % SODIUM CHLORIDE 500 ML IV ONE (09:20)
[2022-11-18 09:42] LABS: POC Calcium, Ionized 1.12 (1.16-1.32); POC Potassium 3.5 (3.3-5.1)
[2022-11-18 09:59] LABS: Basophils # (Auto) 0.04 K/mcL (0.00-0.30); Basophils % (Auto) 0.3 % (0.0-2.0); Eosinophils # (Auto) 0.09 K/mcL (0.00-0.70); Eosinophils % (Auto) 0.6 % (0.0-7.0); Hematocrit 38.2 % (34.1-44.9); Hemoglobin 12.6 g/dL (11.2-15.7); Lymphocytes # (Auto) 3.56 K/mcL (1.50-4.80); Lymphocytes % (Auto) 24.1 % (15.5-49.0); Mean Cell Volume 86.4 fL (80.0-100.0); Mean Platelet Volume 8.7 fL (8.8-12.5); Monocytes # (Auto) 0.83 K/mcL (0.10-0.90); Monocytes % (Auto) 5.6 % (1.0-12.0); Neutrophils % (Auto) 68.9 % (38.0-78.0); Platelet Count 297 K/mcL (140-440); RBC 4.42 M/mcL (3.59-5.38); Red Cell Distribution Width 14.2 % (11.5-14.5); WBC 14.8 K/mcL (4.5-11.0)
--- NOTE | 2022-11-18 10:31 | XRay Report ---
CLINICAL INFORMATION: Falls, pain/tenderness COMPARISON: 06/07/2016 FINDINGS: Oblique mildly displaced fracture through the fourth proximal phalanx appreciated. It is likely acute. Malunified old fracture distal fifth metatarsal seen-as before. There appears shaving of the medial first metatarsal head with cerclage wires in the first proximal phalanx as previously seen. Mild diffuse osteoporosis noted. Mild degenerative change present in the MTP and interphalangeal joints. IMPRESSION: Acute mildly displaced oblique fracture-fourth proximal phalanx. Interpreted and Authenticated by: David Acosta 11/18/22
--- NOTE | 2022-11-18 10:32 | XRay Report ---
CLINICAL INFORMATION: Trauma-fall COMPARISON: None. FINDINGS: The acromioclavicular and glenohumeral joint spaces are normal in width and alignment, without arthritic change. There is no fracture or other osseous abnormality. Soft tissues are unremarkable. IMPRESSION: Normal exam. Interpreted and Authenticated by: David Acosta 11/18/22
--- NOTE | 2022-11-18 10:42 | Cat Scan Report ---
CLINICAL INFORMATION: Trauma-fall COMPARISON: None. TECHNIQUE: 2.5 mm helical slices were obtained in the skull base to vertex. Following reconstruction, axial reformatted images were reviewed at bone and parenchymal windows. The exam was performed using radiation dose optimization techniques including, but not limited to, automated exposure control, adjustment of the mA and/or kV according to patient size and use of iterative reconstruction technique. FINDINGS: There is asymmetric enlargement of the sulci, fissures and cisterns of the frontal and anterior temporal lobes compatible with frontotemporal atrophy. No change from the recent MRI 10/26/2012. There are no extra-axial fluid collections identified. A 5 mm hyperdense colloid cyst is seen in the anterior third ventricle near the left foramen Merritt. No change from the MRI just two weeks prior. There is no intracranial hemorrhage, mass effect, edema or other acute finding. Bone windows show no osseous abnormality. IMPRESSION: 1. 5 mm hyperdense colloid cyst in the anterior third ventricle. These can obstruct the foramen of Merritt resulting in unilateral obstructive hydrocephalus. This does not appear to be occurring at this time. 2. Asymmetric atrophy of both frontal and anterior temporal lobes Interpreted and Authenticated by: David Acosta 11/18/22
--- NOTE | 2022-11-18 10:53 | Cat Scan Report ---
CLINICAL INFORMATION: Trauma-fall syncope COMPARISON: None. TECHNIQUE: 80ml of Isovue-370 were injected intravenously. Using SmartPrep to maximize pulmonary artery opacification, .625mm helical slices were obtained from the lung apices through the lung bases. Following reconstruction, 2.5 mm sagittal, coronal, and axial reformations were processed. The exam was reviewed at mediastinal, lung, and bone windows. The exam was performed using radiation dose optimization techniques including, but not limited to, automated exposure control, adjustment of the mA and/or kV according to patient size and use of iterative reconstruction technique. FINDINGS: Pulmonary parenchymal windows show subsegmental atelectasis in the posterior lower lobe and minimal patchy airspace disease throughout both posterior lower lobe which is likely atelectasis. Infiltrate on unlikely. Moderate left pleural effusion noted. Mediastinal windows show the heart is grossly normal in size and configuration. The pulmonary arteries are normal diameter and well-opacified without evidence of embolus. Thoracic aorta is also normal diameter and well-opacified. There is no adenopathy in the mediastinal, hilar or axillary regions. Esophagus is grossly normal. The thyroid is unremarkable. Acute mildly displaced fractures of posterior left eighth ninth and 10th ribs appreciated. Sagittal reformatted images show what appears to be an oblique fracture of the sternal manubrium, however this is almost certainly artifact. There is no surrounding hemorrhage and no evidence of fracture in this region on the lateral track service person film. Please correlate with point tenderness in the sternomanubrial area. IMPRESSION: 1. No evidence of pulmonary embolus or other acute cardiopulmonary process. 2. Acute mildly displaced fractures posterior left eighth ninth and 10th ribs. 3. Apparent manubrial fracture is almost certainly artifact-please correlate with point tenderness area. 4. Subsegmental atelectasis posterior left lower lobe with small left pleural effusion Interpreted and Authenticated by: David Acosta 11/18/22
[2022-11-18] MEDS ORDERED: LIDOCAINE PATCH TOPICAL ONE (11:30)
[2022-11-18] MEDS ORDERED: HYDROmorphone 0.5 MG/0.5 ML SYRINGE IV ONE (11:30)
[2022-11-18 11:37] LABS: proBNP 23.6 pg/mL (<125.0)
--- NOTE | 2022-11-18 12:13 | Cat Scan Report ---
CLINICAL INFORMATION: Trauma-fall COMPARISON: Abdomen and pelvic CT 01/16/2021 TECHNIQUE: Following enteric contrast, 80 cc of Isovue-370 were injected intravenously, and 60 seconds later, 0.625 mm helical slices were obtained from the mid heart through the subtrochanteric regions. Following reconstruction, 2.5 mm sagittal, coronal and axial reformatted images were processed and reviewed at bone, lung and soft tissue windows. Five minutes later, 0.625 mm helical slices were obtained from the mid heart through the kidneys and viewed at soft tissue windows.The exam was performed using radiation dose optimization techniques including, but not limited to, automated exposure control, adjustment of the mA and/or kV according to patient size and use of iterative reconstruction technique. FINDINGS: The lung bases show subsegmental atelectasis in both posterior lower lobe and tiny left pleural effusion. The visualized heart is grossly normal. Abdominal images show the gallbladder and bile ducts, liver, both kidneys, adrenal glands, spleen and and aorta are normal in size, configuration and attenuation without focal lesion. 50% stenosis celiac artery origin due to crossing of the diaphragmatic lilian. The patient may be a risk for median arcuate ligament syndrome. SMA, NIA, both renal and iliac arteries contain plaque, but no stenoses. Pancreas shows moderate atrophy with fat replacement. This has progressed from previous exam. There is no free air, free fluid or adenopathy. Pelvic images show normal urinary bladder. Uterus and both ovaries are surgically absent. There is moderate concentric wall thickening of the entire descending and proximal/mid sigmoid colon with intermittent injection of pericolonic fat. This suggests the possibility of colitis or other infiltrative pathology. The remaining large bowel, appendix region, small bowel and stomach are grossly normal. Bone windows show acute minimally displaced fracture of the posterior left T8-9 and 10th ribs. IMPRESSION: Acute minimally displaced fractures of the posterior left T8-9 10th ribs. There is no intra-abdominal posttraumatic change. Moderate pancreatic atrophy. Mild wall thickening of the descending and occipital/mid sigmoid colon. While this may merely represent artifact underdistention, the possibility of colitis or other infiltrative abnormality should be entertained. Suggest referral for colonoscopy. Interpreted and Authenticated by: David Acosta 11/18/22
--- NOTE | 2022-11-18 14:27 | Internal Med History&Physical ---
HPI History of Present Illness Patient information: Note initiated : 11/18/22 at 2:12 pm Service Date, if different from initiated Date: [] Patient: Radha Dawn a 67 y/o F admitted on for frequent falls, toe pain. Chief Complaint: [] History of present illness: Ms. Dawn is a 67 year old F Presents the ED after a few falls in the last week, patient states 3 falls in the last week. Last night she fell on her left chest on on her bathtub with pain. She fell again this morning. She has left chest wall pain denies shortness of breath except for when the pain is severe. Pain is described as sharp She has a history of Sjogren's rheumatoid arthritis fibromyalgia depression anxiety GERD and orthostatic hypotension. Patient states she gets dizzy and lightheaded because of the orthostatic hypotension that her primary care doctor has been working on blood pressure management. Patient has a history of Ortho static hypotension and has been treated with fludrocortisone and it sounds like she went to midodrine and then blocked the fludrocortisone. Sounds like in August her fludrocortisone was increased. Patient also takes alfuzosin and amitriptyline. She is also on morphine for chronic pain Work-up in the ED revealed mildly displaced rib fractures on the left of 8 9 and 10. Patient smokes cigarettes daily. However given her frailty and concern for social support and continued smoking patient was admitted for obvious stay and possibly placement. Patient found to have a mild leukocytosis, suspected reactive. Mild hyponatremia 132. Review of Systems: Pertinent positives as above plus intermittent diarrhea or constipation which is normal for. Denies headache/fever/chills/nausea/vomiting/ abdominal pain/cough/dyspnea. Remaining 10 point review of system reviewed negative. PHYSICAL EXAM General: Alert, Awake, No acute Distress Eyes/N/T: EOMI, no scleral icterus, PERRL, Head/Neck: neck supple, full ROM, normocephalic atraumatic CV: RRR, No murmurs, normal s1/s2 Pulm: Clear b/l, no wheezing/rhonchi/rales, no respiratory distress. tender left chest wall Abd: soft, nontender, +BS x4 Ext: no clubbing/cyanosis/edema, nontender Neuro: Alert, CN 2-12 grossly intact, no focal deficits, moves all extremities, , sensations intact b/l upper/lower Psychiatric: Skin: warm/dry, normal color PFSH PFSH All Active Problems (Updated 07/09/21 @ 12:03 by JASON Best) Fracture of left distal radius (Chronic) Urinary tract infection (Chronic) Sicca syndrome, Sjogren's (Chronic) Rheumatoid arthritis, erosive, seronegative (Chronic) Aftercare (Chronic) Peripheral neuropathy (Chronic) Fibromyalgia (Chronic) Fatigue (Chronic) Dysuria (Chronic) Calcium metabolism disorder (Chronic) Preventative health care (Chronic) Acute lumbar back pain (Chronic) Sciatica (Chronic) Hyperlipidemia (Chronic) Depression (Chronic) Chronic abdominal pain (Chronic) Urinary incontinence (Chronic) Urinary frequency (Chronic) Osteoporosis (Chronic) Edema (Chronic) Schatzki's ring (Chronic) Vitamin D deficiency (Chronic) Tubulovillous adenoma of colon (Chronic) Vaginal discharge (Chronic) Incontinence (Chronic) Hematuria (Chronic) Urinary urgency (Chronic) 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) Drug therapy (Chronic) Pain (Chronic) Fracture of wrist (Chronic) Back pain (Chronic) Joint swelling (Chronic) Anxiety (Chronic) History of mammogram (Chronic 09/24/10) History of bone scan (Chronic 08/15/10) Muscle cramps (Chronic) Muscle weakness (Chronic) Stiffness in joint (Chronic) Arthritis (Chronic) Rheumatoid arthritis (Chronic) Polyarthralgia (Chronic) Sicca syndrome (Chronic) Osteoarthritis (Chronic) Strain of lumbar region (Acute) Albuminuria (Chronic) Incomplete bladder emptying (Chronic) Lower urinary tract symptoms (Chronic) Recurrent UTI (Chronic) Steroid long-term use (Chronic) Menopausal state (Chronic) Closed left ankle fracture (Acute) Ankle dislocation (Acute) Hypertension (Chronic) Bladder pain (Chronic) OAB (overactive bladder) (Acute) Colitis (Acute) Abdominal pain (Acute) Anemia, normocytic normochromic (Acute) Hyponatremia (Acute) Hypokalemia (Acute) Bladder pain (Acute) Urethral pain (Acute) Interstitial cystitis (Acute) Urge urinary incontinence (Acute) Medical History (Updated 07/09/21 @ 12:03 by JASON Best) Absence of cervix Surgical Absence of uterus Surgical Acute lumbar back pain Aftercare Long-term use, medications, NEC Albuminuria Anxiety Arthritis Back pain Calcium metabolism disorder Chronic abdominal pain Depression Drug therapy Dysuria Edema Fatigue Fibromyalgia Fracture of left distal radius Fracture of wrist Left-Colles fracture Hematuria History of bone scan (08/15/10) History of mammogram (09/24/10) Hyperlipidemia Incomplete bladder emptying Incontinence Joint swelling Lower urinary tract symptoms Menopausal state Muscle cramps Muscle weakness Osteoarthritis Osteoporosis Pain Peripheral neuropathy Polyarthralgia Preventative health care Recurrent UTI Rheumatoid arthritis Rheumatoid arthritis, erosive, seronegative Schatzki's ring Sciatica Sicca syndrome Sicca syndrome, Sjogren's Steroid long-term use Stiffness in joint Tubulovillous adenoma of colon Urinary frequency Urinary incontinence Urinary tract infection Urinary urgency Vaginal discharge Vitamin D deficiency Surgical History (Updated 10/31/22 @ 08:39 by Lily Celaya) History of appendectomy History of bunionectomy of left great toe (~1994) History of colonoscopy (~10/2010) History of esophagogastroduodenoscopy (EGD) (~10/2010) History of laparoscopy [id number]; Due to endometriosis - 1991 History of laparotomy -1996 History of open reduction and internal fixation (ORIF) procedure (~2014) Left wrist History of open reduction and internal fixation (ORIF) procedure (10/20/19) Left Ankle History of tonsillectomy and adenoidectomy (~1964) History of tubal ligation Status post JUN-BSO Due to endometriosis-1991 Family History (Updated 10/31/22 @ 08:44 by Lily Celaya) Mother FHx: allergies Skin cancer Osteoporosis Hip fracture Father , 84 Parkinson's disease Brother Skin cancer Son Migraines Marijuana use Grandfather Leukemia Colon cancer Heart disease High cholesterol Osteoporosis Cancer Maternal Mental disorder Maternal Grandmother Arthritis Maternal Cancer Maternal Heart disease Maternal Family/Other Rheumatoid arthritis Stroke Kidney disease Aunt Cancer Arthritis Social History (Updated 10/31/22 @ 08:30 by Lily Celaya) marital status: occupational status: disabled other: One son smoking status: Current every day smoker smoking status start date: 06/09/69 alcohol intake frequency: holiday/special occasion only substance use type: does not use MEDS/ALLERGIES Home Medications and Allergies Home Medications Medication Instructions Recorded Confirmed Type cane 05/17/16 06/18/21 History carisoprodol 350 mg tablet (Soma) 350 mg PO Q8HP PRN Spasms 05/17/16 06/18/21 History cushion 05/17/16 06/18/21 History omeprazole 20 mg capsule,delayed 20 mg PO QDAY 05/17/16 11/18/22 History release pilocarpine HCl 5 mg tablet 5 mg PO TID 05/17/16 06/18/21 History temazepam 15 mg capsule 30 mg PO HSP PRN Sleep 05/17/16 11/18/22 History duloxetine 60 mg capsule,delayed 60 mg PO BID 05/29/16 11/18/22 History release folic acid 1 mg tablet 5 mg PO QDAY 07/02/19 11/18/22 History polyethylene glycol 3350 17 17 g PO ONCE PRN Constipation 07/02/19 11/18/22 H istory gram/dose oral powder (Miralax) amitriptyline 50 mg tablet 50 mg PO QHS 07/13/19 11/18/22 History cholecalciferol (vitamin D3) 50 100 mcg PO QDAY 02/01/20 06/18/21 History mcg (2,000 unit) tablet albuterol sulfate 90 mcg/actuation 1 - 2 puff inhalation Q4HP PRN 01/19/21 11/18/22 History aerosol inhaler Shortness Of Breath tramadol 50 mg tablet 50 mg PO Q4 PRN Pain 01/19/21 11/18/22 History methotrexate sodium (PF) 25 mg/mL 20 mg IM WEEKLY 01/20/21 06/18/21 History injection solution tramadol 50 mg tablet 50 mg PO Q8H PRN pain #7 tabs 01/24/21 06/18/21 Rx methotrexate sodium (PF) 25 mg/mL 02/05/21 06/18/21 History injection solution estradiol 0.01% (0.1 mg/gram) 0.5 g vaginal .2 x per week #42.5 03/08/21 06/18/21 Rx vaginal cream (Estrace) grams miconazole nitrate 2 % topical 1 applic topical BID PRN pain 03/08/21 06/18/21 Rx cream (Bairon Antifungal) #42.5 grams spironolactone 50 mg tablet 25 mg PO QAM 03/08/21 06/18/21 History vibegron 75 mg tablet (Gemtesa) 75 mg PO QDAY #90 tabs 07/11/21 Rx alfuzosin 10 mg tablet,extended 10 mg PO QDAY #90 tabs 08/16/22 11/18/22 Rx release 24 hr cyclobenzaprine 10 mg tablet 10 mg PO TID 11/18/22 11/18/22 History fludrocortisone 0.1 mg tablet 0.1 mg PO QDAY 11/18/22 11/18/22 History morphine 15 mg tablet,extended 15 mg PO QDAY 11/18/22 11/18/22 History release morphine 30 mg tablet,extended 30 mg PO QDAY 11/18/22 11/18/22 History release Allergies Allergy/AdvReac Type Severity Reaction Status Date / Time etanercept [From ENBREL] Allergy Intermediate SWELLING Verified 11/18/22 09:33 pregabalin [From LYRICA] Allergy Intermediate SWELLING Verified 11/18/22 09:33 Sulfa (Sulfonamide Allergy Mild Hives Verified 11/18/22 09:33 Antibiotics) infliximab [From Remicade] Allergy Unknown Unknown Verified 11/18/22 09:33 mirabegron [From Myrbetriq] Allergy Unknown Unknown Verified 11/18/22 09:33 tamsulosin Allergy Unknown Unknown Verified 11/18/22 09:33 ciprofloxacin [From Cipro] AdvReac Mild Nausea Verified 11/18/22 09:33 codeine AdvReac Mild NAUSEA Verified 11/18/22 09:33 gabapentin [GABAPENTIN] AdvReac Mild Nausea Verified 11/18/22 09:33 ketorolac [From Toradol] AdvReac Mild Nausea Verified 11/18/22 09:33 EXAM Constitutional Vitals: Temp Pulse Resp BP Pulse Ox O2 Del Method 98.8 F 93 H 19 126/105 97 Room Air 11/18/22 09:07 11/18/22 13:18 11/18/22 13:18 11/18/22 13:01 11/18/22 13:18 11/18/22 09:07 DATA Data Completed and Pending Labs: Labs from last 24 hours 11/18/22 11/18/22 11/18/22 09:29 09:25 09:25 WBC RBC Hgb Hct POC Hct 40.0 MCV MCH MCHC RDW Plt Count MPV Immature Gran % (Auto) Neut % (Auto) Lymph % (Auto) [place] % (Auto) Eos % (Auto) Baso % (Auto) Lymph # (Auto) [place] # (Auto) Eos # (Auto) Baso # (Auto) Immature Gran # Absolute Neutrophils D-Dimer POC Sodium 132 L POC Potassium 3.5 POC Chloride 100 POC Total CO2 20.0 L POC Anion Gap 17.0 H POC BUN 12 POC Creatinine 1.0 POC Glucose 118 H POC WB Ioniz Calcium 1.12 L NT-Pro-B Natriuret Pep 23.6 POC Troponin I < 0.02 11/18/22 11/18/22 09:25 09:25 WBC 14.8 H RBC 4.42 Hgb 12.6 Hct 38.2 POC Hct MCV 86.4 MCH 28.5 MCHC 33.0 RDW 14.2 Plt Count 297 MPV 8.7 L Immature Gran % (Auto) 0.5 Neut % (Auto) 68.9 Lymph % (Auto) 24.1 [place] % (Auto) 5.6 Eos % (Auto) 0.6 Baso % (Auto) 0.3 Lymph # (Auto) 3.56 [place] # (Auto) 0.83 Eos # (Auto) 0.09 Baso # (Auto) 0.04 Immature Gran # 0.07 H Absolute Neutrophils 10.18 H D-Dimer 1.49 H POC Sodium POC Potassium POC Chloride POC Total CO2 POC Anion Gap POC BUN POC Creatinine POC Glucose POC WB Ioniz Calcium NT-Pro-B Natriuret Pep POC Troponin I A/P Narrative A/P Narrative: A: *Left 8-9 mildly displaced rib Fx: 2/2 falling *Atelectasis: *Fallin/2 orthostatic hypotension which her primary care doctor has been working on medication adjustment for *Orthostatic hypotension: On fludrocortisone at home -Also on alfuzosin and amitriptyline as contributors *Generalized weakness/deconditioning: *Tobacco abuse: *Rheumatoid arthritis/Sjogren's/fibromyalgia/chronic pain: On methotrexate/duloxetine *Depression/anxiety: *Peripheral edema: On Aldactone *GERD: *UR: ?2/2 pain -ramirez placed in ED *UTI: P: -Pain control -breathing with splinting technique -IS regularly -Monitor oxygen -PT OT -Smoking cessation counseling >3 minutes -D/c Afluzosin, and consider decreasing amitriptyline or weaning off as able -JOHNNY's, increase salt intake -ramirez placed, f/u urology if needed upon d/c -Jeffery gonzalez UC -Continue methotrexate/duloxetine -Continue fludrocortisone -Home medication reconciliation, clarify home pain regimen -PT/OT -CM for placement -ppx: Lovenox / home PPI Time Spent With Patient Time: Total time spent is greater than 50% in coordination of care (as documented) at patient's floor/unit and/or counseling patient: Initial: Total time with patient: 75 - 90 minutes
[2022-11-18] MEDS ORDERED: POTASSIUM CHLORIDE 20 MEQ TABLET PO PRN ×2 (16:45)
[2022-11-18] MEDS ORDERED: IPRATROPIUM/ALBUTEROL 3 ML AMPUL.NEB NEB PRN (16:45)
[2022-11-18] MEDS ORDERED: morphine 4 MG/ML VIAL IV PRN (16:45)
[2022-11-18] MEDS ORDERED: ACETAMINOPHEN 325 MG TABLET PO PRN (16:45)
[2022-11-18] MEDS ORDERED: MAGNESIUM SULFATE 2 GM/50 ML BAG IV PRN (16:45)
[2022-11-18] MEDS ORDERED: POLYETHYLENE GLYCOL 3350 17 GM PACKET PO PRN (16:45)
[2022-11-18] MEDS ORDERED: SENNOSIDES 1 TABLET PO PRN (16:45)
[2022-11-18] MEDS ORDERED: POTASSIUM CHLORIDE 40 MEQ in DEXTROSE 5% IN WATER 500 ML IV PRN (16:45)
[2022-11-18] MEDS ORDERED: ONDANSETRON 4 MG/2 ML VIAL IV PRN (16:45)
[2022-11-18 16:48] LABS: Appearance,Urine HAZY (Clear); Bilirubin,Urine Negative (Negative); Color,Urine YELLOW; Culture Indicated,Urine yes; Glucose,Urine (UA) Negative (Negative); Ketones,Urine 5 mg/dL (Negative); Leukocyte Esterase,Urine 75 /uL (Negative); Mucus,Urine FEW /hpf; Nitrate,Urine POS (Negative); Protein,Urine Negative (Negative); Specific Gravity,Urine 1.018 (1.000-1.035); Urine Blood Negative (Negative); Urine RBC 0 /hpf (0-3); Urine Squamous Epithelial Cell 0 /hpf (0-4); Urine WBC 15 /hpf (0-4); Urobilinogen,Urine Negative
[2022-11-18] MEDS: cefTRIAXone 1 GM VIAL IV SCH (17:45)
[2022-11-18] MEDS ORDERED: CYCLOBENZAPRINE (PP) 10 MG TABLET PO ONE (20:12)
[2022-11-18] MEDS ORDERED: traMADol (PP) 50 MG TABLET (#4) PO PRN (20:20)
[2022-11-18] MEDS: morphine 30 MG TAB.SR.12H PO SCH (21:30)
[2022-11-18] MEDS: AMITRIPTYLINE 25 MG TABLET PO SCH (21:30)
[2022-11-18] MEDS: 0.9 % SODIUM CHLORIDE 10 ML SYRINGE IV SCH (21:31)
[2022-11-18] MEDS: TEMAZEPAM 15 MG CAPSULE PO PRN (22:36)
[2022-11-19] MEDS: CYCLOBENZAPRINE 10 MG TABLET PO PRN ×3 (04:46→20:47)
[2022-11-19] MEDS: 0.9 % SODIUM CHLORIDE 10 ML SYRINGE IV SCH ×3 (04:47→20:48)
[2022-11-19 06:38] LABS: Basophils # (Auto) 0.05 K/mcL (0.00-0.30); Basophils % (Auto) 0.4 % (0.0-2.0); Eosinophils # (Auto) 0.22 K/mcL (0.00-0.70); Eosinophils % (Auto) 1.7 % (0.0-7.0); Hematocrit 37.7 % (34.1-44.9); Hemoglobin 12.3 g/dL (11.2-15.7); Lymphocytes # (Auto) 4.28 K/mcL (1.50-4.80); Mean Cell Volume 87.7 fL (80.0-100.0); Mean Corpuscular HGB Conc 32.6 g/dL (31.0-36.0); Monocytes # (Auto) 0.88 K/mcL (0.10-0.90); Neutrophils % (Auto) 56.5 % (38.0-78.0); Platelet Count 292 K/mcL (140-440); Red Cell Distribution Width 14.6 % (11.5-14.5); WBC 12.6 K/mcL (4.5-11.0)
[2022-11-19] MEDS: OMEPRAZOLE 20 MG CAPSULE PO SCH (06:57)
[2022-11-19] MEDS: HYDROcodone/APAP 5/325MG TABLET PO PRN ×4 (06:57→21:44)
[2022-11-19 07:08] LABS: ALT/SGPT 9 U/L (<40); AST/SGOT 15 U/L (<32); Albumin 3.6 gm/dL (3.2-5.2); Albumin/Globulin Ratio 1.2 (1.0-2.3); Alkaline Phosphatase 109 U/L (39-117); Bilirubin,Direct < 0.2 mg/dL (0-0.3); Bilirubin,Total 0.4 mg/dL (0.1-1.0); Blood Urea Nitrogen 9 mg/dL (8-23); Calcium 9.1 mg/dL (8.6-10.4); Carbon Dioxide 23 mmol/L (22-30); Chloride 103 mmol/L (96-108); Glomerular Filtration Rate 76; Glucose 113 mg/dL (70-105); Lactate Dehydrogenase 181 U/L (135-225); Phosphorous 2.9 mg/dL (2.5-4.5); Triglycerides 148 mg/dL (<150); Uric Acid 4.2 mg/dL (2.5-8.0)
--- NOTE | 2022-11-19 08:08 | Internal Med Progress Note ---
SUBJECTIVE Subjective Patient information: Note initiated : 11/19/22 at 8:05 am Service Date, if different from initiated Date: [] Patient: Radha Dawn a 67 y/o F admitted on 11/18/22 for frequent falls, toe pain/ atelectasis. Chief Complaint: [] Interval history: History of present illness: Ms. Dawn is a 67 year old F Presents the ED after a few falls in the last week, patient states 3 falls in the last week. Last night she fell on her left chest on on her bathtub with pain. She fell again this morning. She has left chest wall pain denies shortness of breath except for when the pain is severe. Pain is described as sharp She has a history of Sjogren's rheumatoid arthritis fibromyalgia depression anxiety GERD and orthostatic hypotension. Patient states she gets dizzy and lightheaded because of the orthostatic hypotension that her primary care doctor has been working on blood pressure management. Patient has a history of Ortho static hypotension and has been treated with fludrocortisone and it sounds like she went to midodrine and then blocked the fludrocortisone. Sounds like in August her fludrocortisone was increased. Patient also takes alfuzosin and amitriptyline. She is also on morphine for chronic pain Work-up in the ED revealed mildly displaced rib fractures on the left of 8 9 and 10. Patient smokes cigarettes daily. However given her frailty and concern for social support and continued smoking patient was admitted for obvious stay and possibly placement. Patient found to have a mild leukocytosis, suspected reactive. Mild hyponatremia 132. 11/19 poor sleep, she does ok until she moves which causes rib pain on the left. Breathing on room air. Encourage IS, nurses to teach splinting technique, will also prescribe lidocaine patch. Review of Systems: Pertinent positives as above plus intermittent diarrhea or constipation which is normal for. Denies headache/fever/chills/nausea/vomiting/ abdominal pain/cough/dyspnea. PHYSICAL EXAM General: Alert, Awake, No acute Distress Eyes/N/T: EOMI, no scleral icterus, Head/Neck: neck supple, full ROM, CV: RRR, No murmurs, Pulm: Clear b/l, no wheezing/rhonchi/rales, no respiratory distress. tender left chest wall Abd: soft, nontender, +BS x4 Ext: no clubbing/cyanosis/edema, nontender Neuro: Alert, no focal deficits, moves all extremities, , sensations intact b/l upper/lower Psychiatric: Skin: warm/dry, normal color Constitutional Vitals: Vital Signs Temp Pulse Resp BP Pulse Ox O2 Del Method 97.7 F 90 18 118/76 92 Room Air 11/19/22 04:00 11/19/22 04:00 11/19/22 04:00 11/19/22 04:00 11/19/22 04:00 11/19/22 04:00 Period Temp Pulse Resp BP Sys/Mcgraw Pulse Ox O2 Del Method O2 Flow Rate Last 24 Hr 97.6 F-98.8 F 62-104 11-28 107-163/53-131 74-100 Room Air-Room Air Intake and Output 11/18/22 11/19/22 11/19/22 19:59 03:59 11:59 Intake Total 120 450 Output Total 450 450 Balance 120 -450 0 Weight 78.834 kg Intake & Output: Intake & Output 11/18/22 11/19/22 11/19/22 19:59 03:59 11:59 Intake Total 120 450 Output Total 450 450 Balance 120 -450 0 Weight 78.834 kg Intake: Oral 120 450 Output: Urine Catheter Amount 450 450 Other: Meal Dinner Percent of Meal Consumed 100% Feeding Ability Assist with Tray Set Up Urine Appearance Cloudy Cloudy Cloudy Sediment Uretheral (Ramirez) Cloudy Cloudy Urine Color Yellow Yellow Dark Yellow Uretheral (Ramirez) Yellow Yellow Urine Odor Uretheral (Ramirez) Foul OBJ DATA Labs 11/19/22 05:40 11/19/22 05:40 Labs: Abnormal Lab Results 11/19/22 11/19/22 11/18/22 05:40 05:40 15:48 WBC 12.6 H RDW 14.6 H MPV Immature Gran # Absolute Neutrophils D-Dimer POC Sodium POC Total CO2 POC Anion Gap Glucose 113 H POC Glucose POC WB Ioniz Calcium Urine Appearance Hazy A Urine Ketones 5 A Urine Nitrate Pos A Ur Leukocyte Esterase 75 A Urine WBC 15 H Urine Mucus Few A 11/18/22 11/18/22 11/18/22 09:25 09:25 09:25 WBC 14.8 H RDW MPV 8.7 L Immature Gran # 0.07 H Absolute Neutrophils 10.18 H D-Dimer 1.49 H POC Sodium 132 L POC Total CO2 20.0 L POC Anion Gap 17.0 H Glucose POC Glucose 118 H POC WB Ioniz Calcium 1.12 L Urine Appearance Urine Ketones Urine Nitrate Ur Leukocyte Esterase Urine WBC Urine Mucus Meds: Medications Acetaminophen (Acetaminophen 325 Mg Tablet) 650 mg PO Q6HP PRN; Protocol PRN Reason: Per Pain Protocol/Fever > 101 Hydrocodone Bitart/Acetaminophen (Hydrocodone/Apap 5/325mg Tablet) 1 tab PO Q4HP PRN PRN Reason: PAIN LEVEL 3-6 Last Admin: 11/19/22 06:57 Dose: 1 tab Albuterol/Ipratropium (Ipratropium/Albuterol 3 Ml Ampul.Neb) 3 ml NEB Q4HP PRN PRN Reason: Shortness Of Breath Amitriptyline HCl (Amitriptyline 25 Mg Tablet) 50 mg PO HS [facility] Last Admin: 11/18/22 21:30 Dose: 50 mg Ceftriaxone Sodium (Ceftriaxone 1 Gm Vial) 1 gm IV Q24H [facility]; Protocol Last Admin: 11/18/22 17:45 Dose: 1 gm Cyclobenzaprine HCl (Cyclobenzaprine 10 Mg Tablet) 10 mg PO TIDP PRN PRN Reason: Muscle Spasm Last Admin: 11/19/22 04:46 Dose: 10 mg Duloxetine HCl (Duloxetine 30 Mg Capsule) 60 mg PO DAILY [facility] Fludrocortisone Acetate (Fludrocortisone 0.1 Mg Tablet) 0.1 mg PO QDAY [facility] Potassium Chloride 40 meq/ (Dextrose) 520 mls @ 130 mls/hr IV UD PRN PRN Reason: Potassium < 3 Magnesium Sulfate (Magnesium Sulfate) 2 gm in 50 mls @ 50 mls/hr IV UD PRN PRN Reason: Magnesium </= 1.6 Morphine Sulfate (Morphine 4 Mg/Ml Vial) 0 mg IV Q3HP PRN PRN Reason: Pain Last Admin: 11/19/22 01:12 Dose: 2 mg Morphine Sulfate (Morphine 30 Mg Tab.Sr.12h) 30 mg PO HS [facility]; Protocol Last Admin: 11/18/22 21:30 Dose: 30 mg Morphine Sulfate (Morphine 15 Mg Tab.Sr.12h) [facility] [place] Protocol Non-Formulary Medication (Emetrol) 1 tab PO Q6 PRN PRN Reason: Nausea Omeprazole (Omeprazole 20 Mg Capsule) 20 mg PO ACB [facility] Last Admin: 11/19/22 06:57 Dose: 20 mg Ondansetron HCl (Ondansetron 4 Mg/2 Ml Vial) 4 mg IV Q4HP PRN PRN Reason: Nausea And Vomiting Polyethylene Glycol (Polyethylene Glycol 3350 17 Gm Packet) 17 gm PO DAILYP PRN PRN Reason: Constipation Potassium Chloride (Potassium Chloride 20 Meq Tablet) 40 meq PO UD PRN PRN Reason: Potssium is 3-3.5 Potassium Chloride (Potassium Chloride 20 Meq Tablet) 40 meq PO UD PRN PRN Reason: Potassium < 3 Senna (Sennosides 1 Tablet) 2 tab PO DAILYP PRN PRN Reason: Constipation Sodium Chloride (0.9 % Sodium Chloride 10 Ml Syringe) 10 ml IV Q8 [facility] Last Admin: 11/19/22 04:47 Dose: 10 ml Temazepam (Temazepam 15 Mg Capsule) 30 mg PO HSP PRN PRN Reason: Sleep Last Admin: 11/18/22 22:36 Dose: 30 mg A/P Narrative A/P Narrative: A: *Left 8-9 mildly displaced rib Fx: 2/2 falling -on room air *Atelectasis: *Fallin/2 orthostatic hypotension which her primary care doctor has been working on medication adjustment for *Orthostatic hypotension: On fludrocortisone at home -Also on alfuzosin and amitriptyline as contributors *Generalized weakness/deconditioning: *Tobacco abuse: *Rheumatoid arthritis/Sjogren's/fibromyalgia/chronic pain: On methotrexate/duloxetine *Depression/anxiety: *Peripheral edema: On Aldactone *GERD: *UR: ?2/2 pain -ramirez placed in ED *UTI(GNB): P: -Pain control including lidocaine td -breathing with splinting technique -IS regularly -Monitor oxygen -PT OT -Smoking cessation counseling -D/c Afluzosin, and consider decreasing amitriptyline or weaning off as able -JOHNNY's, increase salt intake -ramirez placed, f/u urology if needed upon d/c -Jeffery gonzalez UC -Continue methotrexate/duloxetine -Continue fludrocortisone -PT/OT -CM for placement -ppx: Lovenox / home PPI Time Spent With Patient Time: Total time spent is greater than 50% in coordination of care (as documented) at patient's floor/unit and/or counseling patient: Subsequent: Total time with patient: 50 - 65 Minutes
[2022-11-19] MEDS ORDERED: DEXTROSE PO PRN (08:27)
[2022-11-19] MEDS ORDERED: [UNRECOGNIZED DRUG - OTHER] PO PRN (08:27)
[2022-11-19] MEDS: cefTRIAXone 1 GM VIAL IV SCH (08:41)
[2022-11-19] MEDS: morphine 15 MG TAB.SR.12H PO SCH (08:41)
[2022-11-19] MEDS: DULoxetine 30 MG CAPSULE PO SCH (08:41)
[2022-11-19] MEDS: FLUDROCORTISONE 0.1 MG TABLET PO SCH (08:41)
[2022-11-19] MEDS: LIDOCAINE PATCH TOPICAL SCH (10:08)
--- NOTE | 2022-11-19 11:09 | Discharge Summary ---
Discharge Provider Provider IMPORTANT FOLLOW-UP INFORMATION FOR PCP: Patient information: Note initiated : 11/19/22 at 11:07 am Service Date, if different from initiated Date: [] Patient: Radha Dawn a 67 y/o F admitted on 11/18/22 for frequent falls, toe pain/ atelectasis. Chief Complaint: [] Date of admission: 11/18/22 16:08 Discharge date: 11/20/22 Primary care physician: Lenard Galvan DO Consults: 11/18/22 Consult to Physician [CONS] Stat Comment: Consulting Provider: Lonny Casiano Reason For Exam: Physician to Consult COURSE Hospital Course Hospital course: History of present illness: Ms. Dawn is a 67 year old F Presents the ED after a few falls in the last week, patient states 3 falls in the last week. Last night she fell on her left chest on on her bathtub with pain. She fell again this morning. She has left chest wall pain denies shortness of breath except for when the pain is severe. Pain is described as sharp She has a history of Sjogren's rheumatoid arthritis fibromyalgia depression anxiety GERD and orthostatic hypotension. Patient states she gets dizzy and lightheaded because of the orthostatic hypotension that her primary care doctor has been working on blood pressure management. Patient has a history of Ortho static hypotension and has been treated with fludrocortisone and it sounds like she went to midodrine and then blocked the fludrocortisone. Sounds like in August her fludrocortisone was increased. Patient also takes alfuzosin and amitriptyline. She is also on morphine for chronic pain Work-up in the ED revealed mildly displaced rib fractures on the left of 8 9 and 10. Patient smokes cigarettes daily. However given her frailty and concern for social support and continued smoking patient was admitted for obvious stay and possibly placement. Patient found to have a mild leukocytosis, suspected reactive. Mild hyponatremia 132. 11/19 poor sleep, she does ok until she moves which causes rib pain on the left. Breathing on room air. Encourage IS, nurses to teach splinting technique, will also prescribe lidocaine patch. 11/20 patient states lidocaine patch did not help. Patient pain is okay until she moves a certain way. No overnight events. We will attempt to remove Truong catheter and see how she urinates on her own if not we will replace and have her follow-up with her urologist. A: *Left 8-9 mildly displaced rib Fx: 2/2 falling *Atelectasis: *Fallin/2 orthostatic hypotension which her primary care doctor has been working on medication adjustment for *Orthostatic hypotension: On fludrocortisone at home -Also on alfuzosin and amitriptyline as contributors *Generalized weakness/deconditioning: *Tobacco abuse: *Rheumatoid arthritis/Sjogren's/fibromyalgia/chronic pain: On methotrexate/duloxetine *Depression/anxiety: *Peripheral edema: On Aldactone *GERD: *UR: 2/2 pain *UTI(GNB ): completed abx P: -Pain control including lidocaine td -breathing with splinting technique -D/c Afluzosin -abx for uti Discharge diagnosis: Left rib fractures following generalized weakness orthostatic hypotension Secondary discharge diagnosis: Tobacco abuse cerumen arthritis fibromyalgia chronic pain depression anxiety peripheral edema GERD urinary retention UTI Time Spent with Patient Time attestation: Total time spent providing and/or coordinating discharge services: Time spent: Greater than 30 minutes EXAM Constitutional Vitals: Temp Pulse Resp BP Pulse Ox O2 Del Method 97.7 F 97 H 18 100/64 93 Room Air 11/19/22 08:00 11/19/22 08:00 11/19/22 08:00 11/19/22 08:00 11/19/22 08:00 11/19/22 08:00 Discharge Data Data Completed and Pending Labs on day of discharge: Labs from last 24 hours 11/19/22 11/19/22 11/18/22 05:40 05:40 15:48 WBC 12.6 H RBC 4.30 Hgb 12.3 Hct 37.7 MCV 87.7 MCH 28.6 MCHC 32.6 RDW 14.6 H Plt Count 292 MPV 9.0 Immature Gran % (Auto) 0.4 Neut % (Auto) 56.5 Lymph % (Auto) 34.0 Rankin % (Auto) 7.0 Eos % (Auto) 1.7 Baso % (Auto) 0.4 Lymph # (Auto) 4.28 Rankin # (Auto) 0.88 Eos # (Auto) 0.22 Baso # (Auto) 0.05 Immature Gran # 0.05 Absolute Neutrophils 7.11 Sodium 137 Potassium 3.5 Chloride 103 Carbon Dioxide 23 Anion Gap 11.0 BUN 9 Creatinine 0.8 GFR Calculation 76 Glucose 113 H Uric Acid 4.2 Calcium 9.1 Phosphorus 2.9 Magnesium 2.2 Total Bilirubin 0.4 Direct Bilirubin < 0.2 GGT 16 AST 15 ALT 9 Alkaline Phosphatase 109 Lactate Dehydrogenase 181 NT-Pro-B Natriuret Pep Total Protein 6.6 Albumin 3.6 Globulin 3.0 Albumin/Globulin Ratio 1.2 Triglycerides 148 Urine Color Yellow Urine Appearance Hazy A Urine pH 5.0 Ur Specific [place] 1.018 Urine Protein Negative Urine Glucose (UA) Negative Urine Ketones 5 A Urine Occult Blood Negative Urine Nitrate Pos A Urine Bilirubin Negative Urine Urobilinogen Negative Ur Leukocyte Esterase 75 A Urine RBC 0 Urine WBC 15 H Ur Squamous Epith Cells 0 Urine Bacteria None Urine Mucus Few A Ur Culture Indicated? yes 11/18/22 09:25 WBC RBC Hgb Hct MCV MCH MCHC RDW Plt Count MPV Immature Gran % (Auto) Neut % (Auto) Lymph % (Auto) Rankin % (Auto) Eos % (Auto) Baso % (Auto) Lymph # (Auto) Rankin # (Auto) Eos # (Auto) Baso # (Auto) Immature Gran # Absolute Neutrophils Sodium Potassium Chloride Carbon Dioxide Anion Gap BUN Creatinine GFR Calculation Glucose Uric Acid Calcium Phosphorus Magnesium Total Bilirubin Direct Bilirubin GGT AST ALT Alkaline Phosphatase Lactate Dehydrogenase NT-Pro-B Natriuret Pep 23.6 Total Protein Albumin Globulin Albumin/Globulin Ratio Triglycerides Urine Color Urine Appearance Urine pH Ur Specific [place] Urine Protein Urine Glucose (UA) Urine Ketones Urine Occult Blood Urine Nitrate Urine Bilirubin Urine Urobilinogen Ur Leukocyte Esterase Urine RBC Urine WBC Ur Squamous Epith Cells Urine Bacteria Urine Mucus Ur Culture Indicated? Discharge Plan Patient/Caregiver Discharge Instructions Activity: increase activity as tolerated Diet: Regular Diet Prescriptions: Continued temazepam 15 mg capsule 30 mg PO HSP PRN (Reason: Sleep) omeprazole 20 mg capsule,delayed release(DR/EC) 20 mg PO QDAY (DME) cushion misc See Dose Instructions .ROUTE .MEDSUPPLY Rx Instructions: As directed (DME) cane device See Dose Instructions .ROUTE .MEDSUPPLY Rx Instructions: As directed duloxetine 60 mg capsule,delayed release(DR/EC) 60 mg PO BID folic acid 1 mg tablet 5 mg PO QDAY polyethylene glycol 3350 [Miralax] 17 gram/dose powder 17 g PO ONCE PRN (Reason: Constipation) amitriptyline 50 mg tablet 50 mg tablet 50 mg PO QHS cholecalciferol (vitamin D3) 50 mcg (2,000 unit) tablet 100 mcg PO QDAY tramadol 50 mg tablet 100 mg PO Q4 MDD 8 PRN (Reason: Pain) Rx Instructions: Max of 8 tablets a day albuterol sulfate 90 mcg/actuation Hfa Aerosol Inhaler 1 - 2 puff INHALATION Q4HP PRN (Reason: Shortness Of Breath) cyclobenzaprine 10 mg tablet 10 mg PO TID Rx Instructions: take 1-2 tabs PO 3 times a day morphine 30 mg tablet extended release 30 mg PO HS morphine 15 mg tablet extended release 15 mg PO QAM fludrocortisone 0.1 mg tablet 0.1 mg PO QDAY Emetrol 1 tab PO Q6 PRN (Reason: Nausea) ascorbic acid (vitamin C) 1,000 mg PO QAM Discontinued alfuzosin 10 mg tablet extended release 24 hr 10 mg PO QDAY Qty: 90 0RF Follow Up Plan Follow up with: Lenard Galvan DO [Primary Care Provider] - Patient Disposition: Xfer SNF Prognosis: Fair Rehab Potential: Fair I certify that the patient requires SNF services: Yes Overall status at discharge: patient is progressing back to baseline Discharge Orders: Discharge Order (Routine); Ordered 11/20/22 Ordered By: Lonny Casiano
--- NOTE | 2022-11-19 13:45 | EKG ---
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
[2022-11-19] MEDS: AMITRIPTYLINE 25 MG TABLET PO SCH (20:47)
[2022-11-19] MEDS: TEMAZEPAM 15 MG CAPSULE PO PRN (20:47)
[2022-11-19] MEDS: morphine 30 MG TAB.SR.12H PO SCH (20:48)
[2022-11-20] MEDS: HYDROcodone/APAP 5/325MG TABLET PO PRN ×2 (04:33→12:56)
[2022-11-20] MEDS: 0.9 % SODIUM CHLORIDE 10 ML SYRINGE IV SCH ×2 (04:33→14:19)
[2022-11-20] MEDS: CYCLOBENZAPRINE 10 MG TABLET PO PRN ×2 (04:34→12:57)
[2022-11-20 06:56] LABS: Basophils # (Auto) 0.06 K/mcL (0.00-0.30); Basophils % (Auto) 0.6 % (0.0-2.0); Eosinophils # (Auto) 0.52 K/mcL (0.00-0.70); Eosinophils % (Auto) 5.3 % (0.0-7.0); Hematocrit 37.4 % (34.1-44.9); Hemoglobin 11.9 g/dL (11.2-15.7); Lymphocytes # (Auto) 4.04 K/mcL (1.50-4.80); Lymphocytes % (Auto) 41.1 % (15.5-49.0); Mean Cell Volume 88.4 fL (80.0-100.0); Mean Corpuscular HGB Conc 31.8 g/dL (31.0-36.0); Monocytes # (Auto) 0.65 K/mcL (0.10-0.90); Monocytes % (Auto) 6.6 % (1.0-12.0); Platelet Count 266 K/mcL (140-440); RBC 4.23 M/mcL (3.59-5.38); Red Cell Distribution Width 14.8 % (11.5-14.5); WBC 9.8 K/mcL (4.5-11.0)
[2022-11-20] MEDS: OMEPRAZOLE 20 MG CAPSULE PO SCH (07:27)
--- NOTE | 2022-11-20 08:14 | Internal Med Progress Note ---
SUBJECTIVE Subjective Patient information: Note initiated : 11/20/22 at 8:13 am Service Date, if different from initiated Date: [] Patient: Radha Dawn a 67 y/o F admitted on 11/18/22 for frequent falls, toe pain/ atelectasis. Chief Complaint: [] Interval history: History of present illness: Ms. Dawn is a 67 year old F Presents the ED after a few falls in the last week, patient states 3 falls in the last week. Last night she fell on her left chest on on her bathtub with pain. She fell again this morning. She has left chest wall pain denies shortness of breath except for when the pain is severe. Pain is described as sharp She has a history of Sjogren's rheumatoid arthritis fibromyalgia depression anxiety GERD and orthostatic hypotension. Patient states she gets dizzy and lightheaded because of the orthostatic hypotension that her primary care doctor has been working on blood pressure management. Patient has a history of Ortho static hypotension and has been treated with fludrocortisone and it sounds like she went to midodrine and then blocked the fludrocortisone. Sounds like in August her fludrocortisone was increased. Patient also takes alfuzosin and amitriptyline. She is also on morphine for chronic pain Work-up in the ED revealed mildly displaced rib fractures on the left of 8 9 and 10. Patient smokes cigarettes daily. However given her frailty and concern for social support and continued smoking patient was admitted for obvious stay and possibly placement. Patient found to have a mild leukocytosis, suspected reactive. Mild hyponatremia 132. 11/19 poor sleep, she does ok until she moves which causes rib pain on the left. Breathing on room air. Encourage IS, nurses to teach splinting technique, will also prescribe lidocaine patch. 11/20 patient states lidocaine patch did not help. Patient pain is okay until she moves a certain way. No overnight events. We will attempt to remove Ramirez catheter and see how she urinates on her own if not we will replace and have her follow-up with her urologist. Review of Systems: Pertinent positives as above plus intermittent diarrhea or constipation which is normal for. Denies headache/fever/chills/nausea/vomiting/ abdominal pain/cough/dyspnea. PHYSICAL EXAM General: Alert, Awake, No acute Distress Eyes/N/T: EOMI, no scleral icterus, Head/Neck: neck supple, full ROM, CV: RRR, No murmurs, Pulm: Clear b/l, no wheezing/rhonchi/rales, no respiratory distress. tender left chest wall Abd: soft, nontender, +BS x4 Ext: no clubbing/cyanosis/edema, nontender Neuro: Alert, no focal deficits, moves all extremities, , sensations intact b/l upper/lower Psychiatric: Skin: warm/dry, normal color Constitutional Vitals: Vital Signs Temp Pulse Resp BP Pulse Ox O2 Del Method 97.4 F 74 18 120/72 91 Room Air 11/20/22 06:53 11/20/22 06:53 11/20/22 06:53 11/20/22 06:53 11/20/22 06:53 11/20/22 06:53 Period Temp Pulse Resp BP Sys/Mcgraw Pulse Ox O2 Del Method O2 Flow Rate Last 24 Hr 97.4 F-98.5 F 74-96 16-18 101-131/61-81 90-94 Room Air-Room Air Intake and Output 11/19/22 11/20/22 11/20/22 19:59 03:59 11:59 Intake Total 360 480 Output Total 550 775 Balance -190 -295 Weight 76.884 kg Intake & Output: Intake & Output 11/19/22 11/20/22 11/20/22 19:59 03:59 11:59 Intake Total 360 480 Output Total 550 775 Balance -190 -295 Weight 76.884 kg Intake: Oral 360 480 Output: Urine Catheter Amount 775 Void Amount 550 Other: Meal Dinner Percent of Meal Consumed 10% Urine Appearance Clear Clear Urine Color Yellow Dark Yellow Uretheral (Ramirez) Yellow Urine Odor Normal OBJ DATA Labs 11/20/22 05:41 11/19/22 05:40 Labs: Abnormal Lab Results 11/20/22 11/19/22 11/19/22 05:41 05:40 05:40 WBC 12.6 H RDW 14.8 H 14.6 H MPV Immature Gran # Absolute Neutrophils D-Dimer POC Sodium POC Total CO2 POC Anion Gap Glucose 113 H POC Glucose POC WB Ioniz Calcium Urine Appearance Urine Ketones Urine Nitrate Ur Leukocyte Esterase Urine WBC Urine Mucus 11/18/22 11/18/22 11/18/22 15:48 09:25 09:25 WBC RDW MPV Immature Gran # Absolute Neutrophils D-Dimer 1.49 H POC Sodium 132 L POC Total CO2 20.0 L POC Anion Gap 17.0 H Glucose POC Glucose 118 H POC WB Ioniz Calcium 1.12 L Urine Appearance Hazy A Urine Ketones 5 A Urine Nitrate Pos A Ur Leukocyte Esterase 75 A Urine WBC 15 H Urine Mucus Few A 11/18/22 09:25 WBC 14.8 H RDW MPV 8.7 L Immature Gran # 0.07 H Absolute Neutrophils 10.18 H D-Dimer POC Sodium POC Total CO2 POC Anion Gap Glucose POC Glucose POC WB Ioniz Calcium Urine Appearance Urine Ketones Urine Nitrate Ur Leukocyte Esterase Urine WBC Urine Mucus Meds: Medications Acetaminophen (Acetaminophen 325 Mg Tablet) 650 mg PO Q6HP PRN; Protocol PRN Reason: Per Pain Protocol/Fever > 101 Hydrocodone Bitart/Acetaminophen (Hydrocodone/Apap 5/325mg Tablet) 1 tab PO Q4HP PRN PRN Reason: PAIN LEVEL 3-6 Last Admin: 11/20/22 04:33 Dose: 1 tab Albuterol/Ipratropium (Ipratropium/Albuterol 3 Ml Ampul.Neb) 3 ml NEB Q4HP PRN PRN Reason: Shortness Of Breath Amitriptyline HCl (Amitriptyline 25 Mg Tablet) 50 mg PO HS COUNT INCLUDES THE [facility] Last Admin: 11/19/22 20:47 Dose: 50 mg Ceftriaxone Sodium (Ceftriaxone 1 Gm Vial) 1 gm IV Q24H COUNT INCLUDES THE [facility]; Protocol Last Admin: 11/19/22 08:41 Dose: 1 gm Cyclobenzaprine HCl (Cyclobenzaprine 10 Mg Tablet) 10 mg PO TIDP PRN PRN Reason: Muscle Spasm Last Admin: 11/20/22 04:34 Dose: 10 mg Duloxetine HCl (Duloxetine 30 Mg Capsule) 60 mg PO DAILY COUNT INCLUDES THE [facility] Last Admin: 11/19/22 08:41 Dose: 60 mg Fludrocortisone Acetate (Fludrocortisone 0.1 Mg Tablet) 0.1 mg PO QDAY COUNT INCLUDES THE [facility] Last Admin: 11/19/22 08:41 Dose: 0.1 mg Potassium Chloride 40 meq/ (Dextrose) 520 mls @ 130 mls/hr IV UD PRN PRN Reason: Potassium < 3 Magnesium Sulfate (Magnesium Sulfate) 2 gm in 50 mls @ 50 mls/hr IV UD PRN PRN Reason: Magnesium </= 1.6 Lidocaine (Lidocaine Patch) 1 patch TOPICAL DAILY@1000 EDWIN Last Admin: 11/19/22 10:08 Dose: 1 patch Morphine Sulfate (Morphine 4 Mg/Ml Vial) 0 mg IV Q3HP PRN PRN Reason: Pain Last Admin: 11/19/22 01:12 Dose: 2 mg Morphine Sulfate (Morphine 30 Mg Tab.Sr.12h) 30 mg PO HS COUNT INCLUDES THE [facility]; Protocol Last Admin: 11/19/22 20:48 Dose: 30 mg Morphine Sulfate (Morphine 15 Mg Tab.Sr.12h) 15 mg PO QAM COUNT INCLUDES THE [facility]; Protocol Last Admin: 11/19/22 08:41 Dose: 15 mg Omeprazole (Omeprazole 20 Mg Capsule) 20 mg PO ACB COUNT INCLUDES THE [facility] Last Admin: 11/20/22 07:27 Dose: 20 mg Ondansetron HCl (Ondansetron 4 Mg/2 Ml Vial) 4 mg IV Q4HP PRN PRN Reason: Nausea And Vomiting Emetrol Tablet ( Fructose, Dextrose, And Orthophosphoric Acid) 1 dose PO Q6HP PRN PRN Reason: Nausea Pneumococcal Polyvalent Vaccine (Pneumococcal 23-Camelia P-Sac Vac 0.5 Ml Syringe) 0.5 ml IM .ONCE ONE Stop: 11/20/22 10:01 Polyethylene Glycol (Polyethylene Glycol 3350 17 Gm Packet) 17 gm PO DAILYP PRN PRN Reason: Constipation Potassium Chloride (Potassium Chloride 20 Meq Tablet) 40 meq PO UD PRN PRN Reason: Potssium is 3-3.5 Potassium Chloride (Potassium Chloride 20 Meq Tablet) 40 meq PO UD PRN PRN Reason: Potassium < 3 Senna (Sennosides 1 Tablet) 2 tab PO DAILYP PRN PRN Reason: Constipation Sodium Chloride (0.9 % Sodium Chloride 10 Ml Syringe) 10 ml IV Q8 COUNT INCLUDES THE [facility] Last Admin: 11/20/22 04:33 Dose: 10 ml Temazepam (Temazepam 15 Mg Capsule) 30 mg PO HSP PRN PRN Reason: Sleep Last Admin: 11/19/22 20:47 Dose: 30 mg A/P Narrative A/P Narrative: A: *Left 8-9 mildly displaced rib Fx: 2/2 falling -on room air *Atelectasis: *Fallin/2 orthostatic hypotension which her primary care doctor has been working on medication adjustment for *Orthostatic hypotension: On fludrocortisone at home -Also on alfuzosin and amitriptyline as contributors *Generalized weakness/deconditioning: *Tobacco abuse: *Rheumatoid arthritis/Sjogren's/fibromyalgia/chronic pain: On methotrexate/duloxetine *Depression/anxiety: *Peripheral edema: On Aldactone *GERD: *UR: ?2/2 pain -ramirez placed in ED *UTI(GNB): P: -Pain control including lidocaine td -breathing with splinting technique -IS regularly -Monitor oxygen -PT OT -Smoking cessation counseling -D/c Afluzosin, and consider decreasing amitriptyline or weaning off as able -JOHNNY's, increase salt intake -d/c ramirez and replace if needed, f/u urology if needed upon d/c -[facility] -Continue methotrexate/duloxetine -Continue fludrocortisone -PT/OT -CM for placement -ppx: Lovenox / home PPI Time Spent With Patient Time: Total time spent is greater than 50% in coordination of care (as documented) at patient's floor/unit and/or counseling patient: Subsequent: Total time with patient: 35 - 49 minutes
[2022-11-20] MEDS: morphine 15 MG TAB.SR.12H PO SCH (09:15)
[2022-11-20] MEDS: FLUDROCORTISONE 0.1 MG TABLET PO SCH (09:15)
[2022-11-20] MEDS: cefTRIAXone 1 GM VIAL IV SCH (09:15)
[2022-11-20] MEDS: DULoxetine 30 MG CAPSULE PO SCH (09:15)
[2022-11-20] MEDS ORDERED: PNEUMOCOCCAL 23-VAL P-SAC VAC 0.5 ML SYRINGE IM ONE (10:00)
[2022-11-20] MEDS: LIDOCAINE PATCH TOPICAL SCH (10:07)
== END 2022-11-20 14:15 ==
LOC: MEDSUR 09:02 → ED 09:02 → MEDSUR 16:05
PROVIDERS: ADMIT Internal Medicine; ATTEND Internal Medicine

== ENCOUNTER 2024-05-13 14:09 | Inpatient (IN) ==
[2024-05-13] MEDS ORDERED: IOPAMIDOL 100 ML BOTTLE IV ONE (14:10)
[2024-05-13] MEDS ORDERED: NALOXONE HCL 0.4 MG/ML VIAL IV PRN (14:46)
[2024-05-13 16:02] LABS: Basophils # (Auto) 0.02 K/mcL (0.00-0.30); Basophils % (Auto) 0.3 % (0.0-2.0); Eosinophils # (Auto) 0.13 K/mcL (0.00-0.70); Eosinophils % (Auto) 1.9 % (0.0-7.0); Hematocrit 33.3 % (34.1-44.9); Hemoglobin 10.7 g/dL (11.2-15.7); Lymphocytes # (Auto) 1.53 K/mcL (1.50-4.80); Lymphocytes % (Auto) 22.1 % (15.5-49.0); Mean Cell Volume 96.5 fL (80.0-100.0); Mean Corpuscular HGB Conc 32.1 g/dL (31.0-36.0); Mean Platelet Volume 8.7 fL (8.8-12.5); Monocytes # (Auto) 0.53 K/mcL (0.10-0.90); Monocytes % (Auto) 7.7 % (1.0-12.0); Neutrophils % (Auto) 67.9 % (38.0-78.0); Platelet Count 220 K/mcL (140-440); RBC 3.45 M/mcL (3.59-5.38); Red Cell Distribution Width 14.1 % (11.5-14.5); WBC 6.9 K/mcL (4.5-11.0)
[2024-05-13 16:31] LABS: ALT/SGPT 15 U/L (<40); AST/SGOT 32 U/L (<32); Albumin 3.5 gm/dL (3.2-5.2); Albumin/Globulin Ratio 1.1 (1.0-2.3); Alkaline Phosphatase 84 U/L (39-117); Bilirubin,Total 0.4 mg/dL (0.1-1.0); Blood Urea Nitrogen 12 mg/dL (8-23); Calcium 8.8 mg/dL (8.6-10.4); Carbon Dioxide 23 mmol/L (22-30); Chloride 95 mmol/L (96-108); Globulin 3.2 gm/dL (2.2-3.7); Glomerular Filtration Rate 76; Glucose 103 mg/dL (70-105); Potassium 3.9 mmol/L (3.3-5.1); Sodium 131 mmol/L (133-145)
[2024-05-13] MEDS: cefTRIAXone 1 GM VIAL IV ONE (17:27)
[2024-05-13] MEDS ORDERED: POTASSIUM CHLORIDE 40 MEQ in DEXTROSE 5% IN WATER 500 ML IV PRN (20:55)
[2024-05-13] MEDS ORDERED: POTASSIUM CHLORIDE 20 MEQ TABLET PO PRN ×2 (20:55)
[2024-05-13] MEDS ORDERED: IPRATROPIUM/ALBUTEROL 3 ML AMPUL.NEB NEB PRN (20:55)
[2024-05-13] MEDS ORDERED: MAGNESIUM SULFATE 2 GM/50 ML BAG IV PRN (20:55)
[2024-05-13 21:01] LABS: Appearance,Urine Clear (Clear); Bacteria,Urine Many /hpf (0); Bilirubin,Urine Negative (Negative); Color,Urine Yellow; Glucose,Urine (UA) Negative (Negative); Ketones,Urine Trace mg/dL (Negative); Leukocyte Esterase,Urine Trace /uL (Negative); Nitrate,Urine Positive (Negative); Protein,Urine Negative (Negative); Urine Blood Negative ery/mcL (Negative); Urine RBC 0 /hpf (0-3); Urine Squamous Epithelial Cell 0 /hpf (0-4); Urine WBC 11 /hpf (0-4); Urobilinogen,Urine Normal
[2024-05-13] MEDS: DOCUSATE SODIUM 100 MG CAPSULE PO SCH (22:13)
[2024-05-13] MEDS: 0.9 % SODIUM CHLORIDE 10 ML SYRINGE IV SCH (22:31)
[2024-05-13] MEDS: AZITHROMYCIN 500 MG in 0.9 % SODIUM CHLORIDE 250 ML IV SCH (22:31)
[2024-05-13] MEDS: morphine 4 MG/ML VIAL IV PRN (22:34)
[2024-05-13] MEDS: ONDANSETRON 4 MG/2 ML VIAL IV PRN (22:42)
[2024-05-14] MEDS: HYDROcodone/APAP 5/325MG TABLET PO PRN (01:25)
[2024-05-14 06:21] LABS: Basophils # (Auto) 0.01 K/mcL (0.00-0.30); Basophils % (Auto) 0.1 % (0.0-2.0); Eosinophils # (Auto) 0.09 K/mcL (0.00-0.70); Eosinophils % (Auto) 1.3 % (0.0-7.0); Hematocrit 32.2 % (34.1-44.9); Hemoglobin 10.5 g/dL (11.2-15.7); Lymphocytes # (Auto) 1.44 K/mcL (1.50-4.80); Lymphocytes % (Auto) 20.6 % (15.5-49.0); Mean Cell Volume 95.5 fL (80.0-100.0); Mean Corpuscular HGB Conc 32.6 g/dL (31.0-36.0); Mean Platelet Volume 8.8 fL (8.8-12.5); Monocytes # (Auto) 0.56 K/mcL (0.10-0.90); Neutrophils % (Auto) 69.7 % (38.0-78.0); Platelet Count 223 K/mcL (140-440); RBC 3.37 M/mcL (3.59-5.38); Red Cell Distribution Width 14.1 % (11.5-14.5)
[2024-05-14 06:34] LABS: ALT/SGPT 14 U/L (<40); AST/SGOT 30 U/L (<32); Albumin 3.5 gm/dL (3.2-5.2); Albumin/Globulin Ratio 1.2 (1.0-2.3); Alkaline Phosphatase 83 U/L (39-117); Bilirubin,Direct 0.2 mg/dL (<0.3); Bilirubin,Total 0.4 mg/dL (0.1-1.0); Blood Urea Nitrogen 7 mg/dL (8-23); Carbon Dioxide 26 mmol/L (22-30); Chloride 96 mmol/L (96-108); Glomerular Filtration Rate 93; Glucose 96 mg/dL (70-105); Lactate Dehydrogenase 240 U/L (135-225); Phosphorous 3.3 mg/dL (2.5-4.5); Potassium 3.9 mmol/L (3.3-5.1); Sodium 135 mmol/L (133-145); Triglycerides 130 mg/dL (<150); Uric Acid 4.3 mg/dL (2.5-8.0)
[2024-05-14] MEDS: morphine 15 MG TAB.SR.12H PO SCH (08:46)
[2024-05-14] MEDS: CYCLOBENZAPRINE 10 MG TABLET PO SCH (08:46)
[2024-05-14] MEDS: DULoxetine 30 MG CAPSULE PO SCH (08:48)
[2024-05-14] MEDS: ENOXAPARIN 40 MG/0.4 ML SYRINGE SQ SCH (08:49)
[2024-05-14] MEDS: OMEPRAZOLE 20 MG CAPSULE PO SCH (08:49)
[2024-05-14] MEDS: OSELTAMIVIR PHOSPHATE 75 MG CAPSULE PO SCH (08:49)
[2024-05-14] MEDS: cefTRIAXone 1 GM VIAL IV SCH (08:49)
[2024-05-14] MEDS: Pilocarpine Hcl 5 mg tablet PO SCH (08:54)
[2024-05-14] MEDS: MIDODRINE 5 MG TABLET PO SCH (09:01)
[2024-05-14] MEDS: AMITRIPTYLINE 25 MG TABLET PO SCH (20:23)
[2024-05-14] MEDS: diphenhydrAMINE 25 MG CAPSULE PO PRN (20:23)
[2024-05-14] MEDS: diphenhydrAMINE 25 MG CAPSULE ONE (20:24)
[2024-05-15 07:07] LABS: Blood Urea Nitrogen 7 mg/dL (8-23); C-Reactive Protein 9.86 mg/dL (0.03-0.80); Calcium 8.7 mg/dL (8.6-10.4); Carbon Dioxide 26 mmol/L (22-30); Chloride 99 mmol/L (96-108); Glomerular Filtration Rate 99; Glucose 109 mg/dL (70-105); Potassium 3.8 mmol/L (3.3-5.1); Sodium 136 mmol/L (133-145)
[2024-05-15] MEDS: METOCLOPRAMIDE 10 MG/2 ML VIAL IV PRN (12:15)
[2024-05-15] MEDS: PROMETHAZINE 25 MG TABLET PO PRN (13:08)
[2024-05-15] MEDS ORDERED: AMITRIPTYLINE 75 MG PO SCH (21:00)
[2024-05-15] MEDS: ACETAMINOPHEN 325 MG TABLET PO PRN (23:53)
[2024-05-16] MEDS: FUROSEMIDE 40 MG/4 ML VIAL IV ONE (10:27)
[2024-05-16] MEDS: POLYETHYLENE GLYCOL 3350 17 GM PACKET PO PRN (11:53)
[2024-05-16] MEDS: SENNOSIDES 1 TABLET PO PRN (21:33)
[2024-05-17 06:39] LABS: ALT/SGPT 14 U/L (<40); AST/SGOT 30 U/L (<32); Albumin 3.3 gm/dL (3.2-5.2); Alkaline Phosphatase 71 U/L (39-117); Bilirubin,Direct 0.2 mg/dL (<0.3); Bilirubin,Total 0.5 mg/dL (0.1-1.0); Blood Urea Nitrogen 10 mg/dL (8-23); C-Reactive Protein 3.78 mg/dL (0.03-0.80); Calcium 9.3 mg/dL (8.6-10.4); Carbon Dioxide 28 mmol/L (22-30); Chloride 94 mmol/L (96-108); Globulin 3.3 gm/dL (2.2-3.7); Glomerular Filtration Rate 99; Glucose 99 mg/dL (70-105); Lactate Dehydrogenase 209 U/L (135-225); Phosphorous 4.2 mg/dL (2.5-4.5); Potassium 3.8 mmol/L (3.3-5.1); Sodium 133 mmol/L (133-145); Triglycerides 119 mg/dL (<150); Uric Acid 3.3 mg/dL (2.5-8.0)
[2024-05-17] MEDS ORDERED: HYDROmorphone 0.5 MG/0.5 ML SYRINGE IV PRN (09:01)
[2024-05-17] MEDS: CELECOXIB 200 MG CAPSULE PO SCH (09:52)
[2024-05-17] MEDS: oxyCODONE IR 5 MG TABLET PO PRN (12:04)
[2024-05-17] MEDS ORDERED: ACETAMINOPHEN 500 MG TABLET PO SCH (15:00)
== END 2024-05-17 14:00 | DRG 193 ==
LOC: ED 14:09 → MEDSUR 20:53
PROVIDERS: ADMIT Internal Medicine; ATTEND Internal Medicine